=== PATIENT | female | born 1975 | race Caucasian/White ===

== ENCOUNTER 2023-03-03 01:04 | Emergency (ER) | payer BC, SELFPAY ==
--- NOTE | ~2023-03-03 | XR_ITS ---
EXAMINATION: XR CHEST CLINICAL INFORMATION: Cough. Pneumonia. COMPARISON: None available. TECHNIQUE: 2 views of the chest were obtained. FINDINGS: Diffuse bronchial wall thickening. Faint streaky opacities in the lower lobes bilaterally could represent infiltrate or atelectasis. No pleural effusion or pneumothorax. Normal heart size and pulmonary vascularity. XR/XR chest 2V IMPRESSION: * Diffuse bronchial wall thickening compatible with bronchitis. * Faint streaky opacities in the lower lobes bilaterally could represent infiltrate or atelectasis.
[2023-03-03 01:07] VITALS: BP 122/90; PULSE 107; RESP 24; TEMP 36.4; O2SAT 96; BMI 58.5
[2023-03-03 02:02] LABS: Influenza A PCR NEGATIVE (Negative); Influenza B PCR NEGATIVE (Negative); Resp Syncy Virus RNA Qual PCR NEGATIVE (Negative); SARS COV2 PCR INHOUSE NEGATIVE (Negative)
[2023-03-03 02:04] VITALS: BP 108/53; PULSE 98; RESP 16; TEMP 36.6; O2SAT 96
--- NOTE | 2023-03-03 02:04 | ED_ITS ---
HPI - URI/Sore Throat General Chief Complaint: Upper Respiratory Symptoms Stated Complaint: pneumonia ? asthma treatment not working Time Seen by Provider: 03/03/23 02:04 Source: patient Mode of arrival: ambulatory Limitations: no limitations History of Present Illness HPI Narrative: Patient obese with history of asthma/COPD been sick for last 1 week flu COVID was negative last week take and short course of prednisone and using nebulizing treatments still coughing a lot with mucopurulent expectoration no fever no chills history of same frequently patient does snore not been tested for sleep apnea no fever or chills Related Data Previous Rx's Medication Instructions Recorded albuterol sulfate 2.5 mg/3 mL 2.5 mg (3 mL) inhalation Q4-6H PRN 03/03/23 (0.083 %) solution for nebulization shortness of breath or wheezing #90 mL cefuroxime axetil 500 mg tablet 500 mg PO BID 10 days #20 tabs 03/03/23 codeine 10 mg-guaifenesin 100 mg/5 10 ml PO Q6H PRN cough #237 mL 03/03/23 mL oral liquid Allergies Allergy/AdvReac Type Severity Reaction Status Date / Time No Known Allergies Allergy Verified 03/03/23 02:04 Review of Systems Review of Systems: Yes all other systems are reviewed and are [facility] Social History Social History Advance Directives: No Advance Directives Information Provided: Yes Physical Exam Vital Signs: Vital Signs: Last Vital Signs Temp 97.9 F 03/03/23 02:04 Pulse 98 03/03/23 02:58 Resp 18 03/03/23 02:58 BP 108/53 L 03/03/23 02:04 Pulse Ox 96 03/03/23 02:11 O2 Del Method Room Air 03/03/23 02:11 BMI result Body Mass Index 58.5 Appearance: Alert. Oriented X3. No acute distress. obese ENT: Pharynx normal. Oral Mucosa moist Neck: Normal inspection. Neck supple. CVS: Normal heart rate and rhythm. Pulses normal. Respiratory: No respiratory distress. Equal air entry bilateral, bilateral prolonged expiration with wheezing no cracks Abdomen: Soft and nontender. Bowel sounds are present, no mass palpable, no CVA tenderness Skin: Skin warm and dry. Normal skin color. Normal skin turgor. Extremities: No lower extremity edema. No calf tenderness Neuro: Oriented X 3. No motor deficit. Medications Administered Discontinued Medications Generic Name Dose Route Start Last Admin Trade Name Caleb PRN Reason Stop Dose Admin Cefuroxime Axetil 500 mg 03/03/23 02:40 03/03/23 02:53 Cefuroxime Axetil 500 Mg Tablet PO 03/03/23 02:41 500 mg ONCE ONE Administration Albuterol Sulfate 5 mg/ 0 mg 03/03/23 02:40 03/03/23 02:55 Albuterol/Ipratropium 3 ml INHALE 03/03/23 02:41 5 each ONCE ONE Administration Dexamethasone 10 mg 03/03/23 02:40 03/03/23 02:53 Dexamethasone 2 Mg Tablet PO 03/03/23 02:41 10 mg ONCE ONE Administration Guaifenesin/Codeine Phosphate 10 ml 03/03/23 02:40 03/03/23 02:53 Guaifen/Codeine Sf 200/20/10ml 10 Ml Liquid PO 03/03/23 02:41 10 ml ONCE ONE Administration Medical Decision Making Medical Decision Making [facility] Narrative: Patient up with with COPD/asthma overlap comes in with bronchitis symptoms chest x-ray negative for pneumonia responded to steroids and antibiotics and nebulizing treatment discharge patient home on same advised to follow with can pusher for sleep apnea study Lab Data [facility] Lab Attestation statement: I reviewed the patient's lab results. Labs: Lab Results 03/03/23 Range/Units 01:19 Influenza Type A (PCR) NEGATIVE (Negative) Influenza Type B (PCR) NEGATIVE (Negative) RSV RNA Qual (PCR) NEGATIVE (Negative) SARS-CoV-2 RNA (RT-PCR) NEGATIVE (Negative) Independent Interpretation I performed an independent interpretation of an: Plain X-Ray Radiology Impression Discussion of test interpretation with radiology: I have reviewed the radiologist's reading. Radiologist Impression: [address] [address] XRay Report Signed Patient: Felicita Perez MR#: [id number] : 1975 Acct:[id number] Age/Sex: 48 / F ADM Date: 03/03/23 Loc: .ED Attending Dr: Ordering Physician: Trevor Arora MD Date of Service: 03/03/23 Procedure(s): XR chest 2V Accession Number(s): [id number] cc: Physician,Unknown ; Trevor Arora MD~ EXAMINATION: XR CHEST CLINICAL INFORMATION: Cough. Pneumonia. COMPARISON: None available. TECHNIQUE: 2 views of the chest were obtained. FINDINGS: Diffuse bronchial wall thickening. Faint streaky opacities in the lower lobes bilaterally could represent infiltrate or atelectasis. No pleural effusion or pneumothorax. Normal heart size and pulmonary vascularity. XR/XR chest 2V IMPRESSION: * Diffuse bronchial wall thickening compatible with bronchitis. * Faint streaky opacities in the lower lobes bilaterally could represent infiltrate or atelectasis. Discharge Plan Discharge Clinical Impression: Bronchitis Patient Disposition: Home, Self-Care Instructions: Acute Bronchitis (ED) Additional Instructions: Continue nebulizing treatment Course of prednisone as advised Antibiotic as advised Cough syrup as advised Prescriptions: New albuterol sulfate 2.5 mg /3 mL (0.083 %) solution for nebulization 2.5 mg inhalation Q4-6H PRN (Reason: shortness of breath or wheezing) Qty: 90 0RF codeine-guaifenesin 10-100 mg/5 mL liquid 10 ml PO Q6H PRN (Reason: cough) Qty: 237 0RF cefuroxime axetil 500 mg tablet 500 mg PO BID 10 Days Qty: 20 0RF Referrals: Taz Zhang MD [Physician] - 2 weeks Stand Alone Forms: Work/School Release Interventions: ED Discharge Assessment Last Done: 03/03/23 04:18 Discharge Date/Time: 03/03/23 04:19
[2023-03-03 02:11] VITALS: O2SAT 96
[2023-03-03] MEDS: dexAMETHasone 2 MG TABLET 10 MG PO (02:53)
[2023-03-03] MEDS: guaiFEN/Codeine SF 200/20/10ML 10 ML LIQUID PO (02:53)
[2023-03-03] MEDS: cefuroxime axetiL 500 MG TABLET PO (02:53)
[2023-03-03] MEDS: Albuterol Sulfate 5 MG, Albuterol/Iprat 2.5/0.5MG 3 ML 3 ML INHALE (02:55)
[2023-03-03 02:58] VITALS: PULSE 98; RESP 18; O2SAT 97
== END 2023-03-03 04:19 | disposition home or self-care (01) ==
PROVIDERS: Emergency Provider Internal Medicine
DX: J40 Bronchitis, not specified as acute or chronic (principal); R50.9 Fever, unspecified; Z20.822 Contact with and (suspected) exposure to COVID-19; Z20.828 Contact with and (suspected) exposure to other viral communicable diseases
CPT/HCPCS: 0241U; 71046; 94640; 99284; 99285; J8540

== ENCOUNTER 2024-03-29 15:09 | Outpatient (AMB) | payer OTHER, SELFPAY ==
[2024-03-29 15:14] VITALS: BP 132/80; PULSE 104; O2SAT 96; BMI 59.3
--- NOTE | 2024-03-29 15:14 | A.OFFPC_ITS ---
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 Sawyer Required: No Accompanied by: Self / Same As Patient Allergies No Known Allergies Allergy (Verified 03/29/24 15:28) Medication List - Last Reconciled 03/29/24 by Kian Hannon PA-C albuterol sulfate 2.5 mg (3 mL) inhalation Q4-6H PRN albuterol sulfate 90 mcg/actuation (Ventolin HFA) inhalation budesonide 180 mcg/actuation (Pulmicort Flexhaler) inhalation celecoxib 200 mg PO DAILY PRN hydrochlorothiazide 50 mg PO DAILY levothyroxine mcg PO DAILY losartan mg PO DAILY Tobacco use date assessed: 03/29/24 Dental Screening Dental Screen Date: 03/29/24 Did you have a dental visit in the last 12 months?: No Did you have a dental problem in the last 6 months where you did not have access to dental care?: No Was dental information given to patient?: No 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 Patient has a past medical history significant for asthma, former smoker, type 2 diabetes, obesity, hyperlipidemia, hypothyroidism and hypertension. Previous PCP was at [facility] .. Hypertension: Patient on losartan and hydrochlorothiazide with decent affect on her blood pressure . Today's blood pressure in office acceptable. .. Asthma: Patient reports her asthma is fairly well controlled with p.r.n. use of her albuterol inhaler or nebulizer. She does use Pulmicort a daily basis with good effect. .. Obesity: She does understand her BMI is over 55 and will try to work on better eating habits. She was on Ozempic previously which had helped him lose weight and control her blood sugars. .. Type 2 diabetes: She reports a history of having an A1c of 7.0. She was previously on Ozempic though due to insurance coverage she has been off of this medication for several months. 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 PFSH Family History (Updated 03/29/24 @ 15:33 by Kian Hannon PA-C) Maternal Grandmother Ovarian cancer Other ADHD FH: mental illness Substance abuse Social History (Updated 03/29/24 @ 15:35 by Kian Hannon PA-C) Housing: House Alcohol intake: current Alcohol intake frequency: 3 or more drinks per day Alcohol type: hard liquor Patient Tobacco Use Status: Former Tobacco user e-Cigarette/Vaping Use: Never Used Second Hand Smoke Exposure: No service: No Current occupational status: employed Current occupation: [employer] [place] Current occupational exposures/hazards: Yes Cognitive needs: No Hearing needs: No Vision needs: No Questionnaire PHQ-9 Over the last 2 weeks, how often have you been bothered by any of the following problems? 1. Little interest or pleasure in doing things: not at all 2. Feeling down, depressed, or hopeless: not at all 3. Trouble falling or staying asleep, or sleeping too much: not at all 4. Feeling tired or having little energy: not at all 5. Poor appetite or overeating: not at all 6. Feeling bad about yourself - or that you are a failure or have let yourself or your family down: not at all 7. Trouble concentrating on things, such as reading the newspaper or watching television: not at all 8. Moving or speaking so slowly that other people could have noticed. Or the opposite - being so fidgety or restless that you have been moving around a lot more than usual: not at all 9. Thoughts that you would be better off or of hurting yourself in some wa y: not at all Total score: 0 Depression Screening Interpretation: Negative Depression Screening Done: Yes 90080 - PHQ-9 Billing: Yes Source: Developed by Drs. Sourav Rosa, Janelle Anderson, Dangelo Adan and colleagues, with an educational marissa from [employer]. Thrive Questionnaire Date Thrive assessed: 03/29/24 I am a: Patient What is your living situation today?: I have a steady place to live Within the past 12 months, did the food you bought not last and you didn't have the money to get more?: I choose not to answer this question Within the past 12 months, did you worry whether your food would run out before you got money to buy more?: I choose not to answer this question Do you have trouble paying for medicines?: I choose not to answer this question Do you have trouble getting transportation to medical appointments?: I choose not to answer this question Do you have trouble paying your heating and electricity bill?: I choose not to answer this question Do you have trouble taking care of your child, family member or friend?: I choose not to answer this question Do you have trouble with day-to-day activities such as bathing, preparing meals, shopping, managing finances, etc.?: I choose not to answer this question Are you currently unemployed and looking for a job?: I choose not to answer this question Are you interested in more education?: I choose not to answer this question Please select the resources that you would like help with: None Currently or been in a relationship where the following occur: I choose not to answer THRIVE Score: 0 AUDIT C Alcohol Use Questionnaire (AUDIT-C) 1. How often do you have a drink containing alcohol?: 4 or more times a week 2. How many drinks containing alcohol do you have on a typical day when you are drinking?: 1 or 2 3. How often do you have six or more drinks on one occasion?: Less than monthly Total Score: 5 SABA-7 AMB Questionnaire SABA-7 Date SABA - 7 assessed: 03/29/24 Feeling nervous, anxious, or on edge: 0 = Not at all Not being able to stop or control worryin = Not at all Worrying too much about different things: 0 = Not at all Trouble relaxin = Not at all Being so restless that it is hard to sit still: 0 = Not at all Becoming easily annoyed or irritable: 0 = Not at all Feeling afraid as if something awful might happen: 0 = Not at all Total SABA-7 score (0-4 normal; 5-9 mild; 10-14 moderate; 15-21 severe): 0 Source: Developed by Drs. Sourav Rosa, Janelle Anderson, Dangelo Adan and colleagues, with an educational marissa from [employer]. SABA-7 Assessment Billing SABA-7 Assessment Tool: SABA-7 Assessment 28617 Review of Systems Const Denies body aches, Denies chills, Denies excessive sweating, Denies fatigue, Denies fever(s) and Denies headache(s) Eyes Denies blurry vision ENT Denies dysphagia, Denies vertigo, Denies dizziness, Denies headache(s), Denies hearing loss and Denies tinnitus Card Denies chest pain, Denies chest pain with activity, Denies syncope, Denies irregular heart rhythm and Denies dyspnea Resp Denies chest congestion, Denies cough, Denies hemoptysis, Denies dyspnea and Denies wheezing GI Denies abdominal pain, Denies melena, Denies hematochezia, Denies coffee ground emesis, Denies dysphagia, Denies diarrhea, Denies nausea and Denies vomiting Denies urinary frequency, Denies dysuria, Denies urinary hesitancy and Denies urinary urgency Musc Denies arthralgias, Denies limited range of motion, Denies muscle cramps and Denies muscle weakness Skin/Breast Denies rash and Denies skin ulcer Neuro Denies Abnormal speech present, Denies confusion, Denies vertigo, Denies dizziness, Denies syncope, Denies headache(s), Denies memory loss and Denies seizure-like activity Psych Denies anxiety, Denies confusion, Denies depression, Denies memory loss, Denies panic attacks and Denies paranoia Endo Denies excessive sweating, Denies fatigue, Denies flushing, Denies polydipsia and Denies polyuria Aller/Immun Denies wheezing Physical exam (Primary Care) Vital Signs: Last Vital Signs Pulse 104 H 03/29/24 15:14 BP 132/80 03/29/24 15:14 Pulse Ox 96 03/29/24 15:14 Oxygen Delivery Method Room Air 03/29/24 15:14 BMI result Body Mass Index 59.3 BMI Assessment/Plan discussion: High BMI High, discussed plan: lifestyle, weight reduction, dietary and physical activity Tobacco/Smoking Status: Tobacco use Status Tobacco use date assessed 03/29/24 03/29/24 15:24 Patient Tobacco Use Status Former Tobacco user 03/29/24 15:24 e-Cigarette/Vaping Use Never Used 03/29/24 15:24 PHQ-9: PHQ-9 Score PHQ-9: Total score 0 03/29/24 15:24 Depression Screening Interpretation: Negative Thrive Assessment: Date of Thrive Assessment Date Thrive assessed 03/29/24 03/29/24 15:24 Currently or been in a relationship where the following occur: I choose not to answer Const General: cooperative, comfortable, no acute distress, alert and awake; No confusion Orientation/consciousness: oriented to person, oriented to place, patient oriented x3 and No confusion HENMT Head: Yes normocephalic Ears: external ears normal and TM's normal bilaterally Face and sinus: No sinus tenderness Mouth: Normal oral and palatal mucosa present and tongue normal Teeth and gingiva: dentition normal and gingiva normal Throat: Yes posterior oropharynx normal, Yes tonsils normal and Yes uvula midline Eyes Conjunctivae: conjunctivae normal Sclerae: sclerae normal Pupils: Equal, round and reactive pupils present EOM: EOMs intact bilaterally Direct Ophthalmoscopy: No no photophobia Neck Neck: Yes no lymphadenopathy, No tender and Yes no JVD Thyroid: Thyroid normal Carotids: no bruits Chest Chest palpation & inspection: no tenderness Resp Effort & Inspection: normal respiratory effort, no audible wheezes, not labored and no stridor Auscultation: no crackles, no rales, no rhonchi and no wheezes Cardio Jugular venous distension: no JVD Rate: regular rate, not bradycardic and not tachycardic Rhythm: regular rhythm Bruits: no carotid bruits Peripheral pulses: Peripheral pulses 2+ throughout GI Inspection: Yes normal to inspection, No abdominal wall ecchymosis and No visible herniation Palpation (GI): Soft to palpation, nontender, no guarding, not rigid and No hepatosplenomegaly present Auscultation: normoactive bowel sounds General: Yes no CVA tenderness Back/Spine/Pelvis Back: no CVA tenderness and No back tenderness Cervical Spine: cervical ROM normal Thoracic/Lumbar Spine: thoracic and lumbar spine normal to inspection, straight leg raise negative bilaterally, No thoraco-lumbar ROM limited and No lumbar spinal tenderness Skin Lesions: no lesions Rashes: no rashes Wounds: no wounds Neuro General: oriented to person, oriented to place, patient oriented x3, CN's II-XI intact bilaterally and No confusion Cranial nerves: Yes Equal, round and reactive pupils present and Yes Normal accommodation reflex present Cognition (Neuro): normal cognition Speech: No Abnormal speech present Gait exam (Neuro): Normal gait present Motor exam (neuro): 5/5 motor strength present throughout Extrem Right upper extremity: full ROM; no cyanosis Left upper extremity: full ROM; no cyanosis Right lower extremity: no edema Left lower extremity: no edema Psych Appearance: grossly normal Mental Status: mental status grossly normal Affect: normal affect Attitude: cooperative Thought process: Normal thought process present Coding Level of Care Code New Pt Prev Care 40-64y(26606) Diagnoses Annual physical exam Z00.00 Primary hypertension I10 Hypertension type: primary hypertension Type 2 diabetes mellitus with hyperglycemia, without long-term current use of insulin E11.65 Diabetes mellitus longterm insulin use: without continuous churn buttermaker use Diabetes mellitus complication status: with hyperglycemia Hypothyroidism, unspecified type E03.9 Hypothyroidism type: unspecified Class 3 obesity E66.813 Encounter for screening mammogram for malignant neoplasm of breast Z12.31 Breast cancer screening modality: mammogram Cervical cancer screening Z12.4 Mild persistent asthma without complication J45.30 Asthma severity: mild Asthma persistence: persistent Asthma complication type: uncomplicated Primary osteoarthritis of both ankles M19.071; M19.072 Osteoarthritis location: ankle Osteoarthritis type: primary Laterality: bilateral Alcohol use disorder, mild, abuse F10.10 Additional Codes PHQ-9 - 73420 - PHQ-9 Billing: Yes ([id number]) SABA-7 Assessment Billing - SABA-7 Assessment Tool: SABA-7 Assessment 21622 ([id number]) Assessment & Plan Assessment & Plan (1) Annual physical exam: Code(s): Z00.00 - Encounter for general adult medical examination without abnormal findings Category: Medical Plan: As per HPI (2) HTN (hypertension): Code(s): I10 - Essential (primary) hypertension Category: Medical Qualifiers: Hypertension type: primary hypertension Qualified Code(s): I10 - Essential (primary) hypertension Plan: Patient's blood pressure acceptable today in office. She continues on losartan hydrochlorothiazide with decent blood pressure control. She is a former smoker quit in 2020. Goal blood pressures to remain below 140/90 (3) DMII (diabetes mellitus, type 2): Code(s): E11.9 - Type 2 diabetes mellitus without complications Category: Medical Qualifiers: Diabetes mellitus continuous churn buttermaker insulin use: without continuous churn buttermaker use Diabetes mellitus complication status: with hyperglycemia Qualified Code(s): E11.65 - Type 2 diabetes mellitus with hyperglycemia Plan: Patient reports she did have an A1c in the past though 7.0. She was on Ozempic previously and did lose weight. She is interested in restarting Ozempic as it was helpful for her glycemic control and losing weight. Goal A1c is to remain below 7.0 (4) Hypothyroid: Code(s): E03.9 - Hypothyroidism, unspecified Category: Medical Qualifiers: Hypothyroidism type: unspecified Qualified Code(s): E03.9 - Hypothyroidism, unspecified Plan: Patient continues on levothyroxine with good effect. Will follow her TSH to assure normal make any adjustments in levothyroxine dosing that are appropriate (5) Class 3 obesity: Code(s): E66.813 - Obesity, class 3 Category: Medical Plan: Patient does understand her BMI is over 50 and will work on being more physically active and adapt to better eating habits to reduce her weight. She is somewhat disabled by her arthritis particularly in her ankles which causes her not to be able to be physically active. (6) Breast cancer screening: Code(s): Z12.39 - Encounter for other screening for malignant neoplasm of breast Category: Medical Qualifiers: Breast cancer screening modality: mammogram Qualified Code(s): Z12.31 - Encounter for screening mammogram for malignant neoplasm of breast Plan: She is in need screening mammogram (7) Cervical cancer screening: Code(s): Z12.4 - Encounter for screening for malignant neoplasm of cervix Category: Medical Plan: She is in need of Pap screening (8) Asthma: Code(s): J45.909 - Unspecified asthma, uncomplicated Category: Medical Qualifiers: Asthma severity: mild Asthma persistence: persistent Asthma complication type: uncomplicated Qualified Code(s): J45.30 - Mild persistent asthma, uncomplicated Plan: She reports her asthma is fairly well controlled with p.r.n. use of her albuterol inhaler and daily use of her Pulmicort. She is a former smoker. (9) Osteoarthritis: Code(s): M19.90 - Unspecified osteoarthritis, unspecified site Category: Medical Qualifiers: Osteoarthritis location: ankle Osteoarthritis type: primary Laterality: bilateral Qualified Code(s): M19.071 - Primary osteoarthritis, right ankle and foot; M19.072 - Primary osteoarthritis, left ankle and foot Plan: Continues on Celebrex for her arthritic pain. She does for her severe osteoarthritis which limits her ability to be more physically active (10) Alcohol use disorder, mild, abuse: Code(s): F10.10 - Alcohol abuse, uncomplicated Category: Medical Plan: Patient does admit to drinking 3 or 4 mixed drinks per day. She admits she has somewhat of a problem with alcohol. Offered her naltrexone to help her with cravings though she declines. We did discuss his perhaps trying a 12 step program though she is considering. Orders: Orders TSH reflex Free T4 Today E03.9 - Hypothyroidism, unspecified Complete Blood Count no Diff Today E11.65 - Type 2 diabetes mellitus with hyperglycemia Hemoglobin A1c Today E11.65 - Type 2 diabetes mellitus with hyperglycemia Microalbumin, Random (w Creat) Today E11.65 - Type 2 diabetes mellitus with hyperglycemia Comprehensive Weiser. Panel Fast Today E11.65 - Type 2 diabetes mellitus with hyperglycemia Lipid Panel Today E11.65 - Type 2 diabetes mellitus with hyperglycemia MM screening mammo BI Today Z12.31 - Encounter for screening mammogram for m alignant neoplasm of breast Referrals [employer] UNDERWRITER Referral Z12.4 - Encounter for screening for malignant neoplasm of cervix Cologuard Test Z12.11 - Encounter for screening for malignant neoplasm of colon Medications: New celecoxib 200 mg PO DAILY 90 days 90 caps 1RF moderate pain M19.90 - Unspecified osteoarthritis, unspecified site budesonide 180 mcg/actuation (Pulmicort Flexhaler) 1 inh inhalation BID 30 days 1 ea 6RF J45.909 - Unspecified asthma, uncomplicated hydrochlorothiazide 50 mg PO DAILY 90 days 90 tabs 1RF I10 - Essential (primary) hypertension semaglutide (Ozempic) 0.5 mg (0.736 mL) subcut QWEEK 4 weeks 3 mL 2RF E11.65 - Type 2 diabetes mellitus with hyperglycemia
== END 2024-03-29 15:51 | disposition home or self-care (01) ==
PROVIDERS: PCP Physician Assistant; Visit Provider Physician Assistant
DX: Z00.00 Encounter for general adult medical examination without abnormal findings (principal); E11.65 Type 2 diabetes mellitus with hyperglycemia; E66.813 Obesity, class 3; Z68.43 Body mass index [BMI] 50.0-59.9, adult; I10 Essential (primary) hypertension; E03.9 Hypothyroidism, unspecified; Z12.31 Encounter for screening mammogram for malignant neoplasm of breast; J45.30 Mild persistent asthma, uncomplicated; M19.071 Primary osteoarthritis, right ankle and foot; M19.072 Primary osteoarthritis, left ankle and foot; F10.10 Alcohol abuse, uncomplicated

== ENCOUNTER → 2024-03-29 15:09 | Outpatient (BNVA) | payer OTHER, SELFPAY | PROVIDERS: PCP Physician Assistant; Visit Provider Physician Assistant | DX: Z00.00 Encounter for general adult medical examination without abnormal findings (principal); I10 Essential (primary) hypertension; E11.65 Type 2 diabetes mellitus with hyperglycemia; E03.9 Hypothyroidism, unspecified; E66.813 Obesity, class 3; J45.30 Mild persistent asthma, uncomplicated; M19.071 Primary osteoarthritis, right ankle and foot; M19.072 Primary osteoarthritis, left ankle and foot; F10.10 Alcohol abuse, uncomplicated | CPT/HCPCS: 96127; 99386 ==

== ENCOUNTER 2024-05-24 13:36 | Outpatient (REF) | payer OTHER, SELFPAY | END 2024-05-24 13:37 | disposition home or self-care (01) | LOC: HO.MAMMO 13:36 | PROVIDERS: PCP Physician Assistant; Visit Provider Physician Assistant | DX: Z12.31 Encounter for screening mammogram for malignant neoplasm of breast (principal) | CPT/HCPCS: 77063; 77067 ==

== ENCOUNTER → 2024-05-24 13:45 | Outpatient (BNV) | payer OTHER, SELFPAY | PROVIDERS: PCP Physician Assistant; Visit Provider Internal Medicine | DX: Z12.31 Encounter for screening mammogram for malignant neoplasm of breast (principal) | CPT/HCPCS: 77063; 77067 ==

== ENCOUNTER 2024-06-01 10:57 | Emergency (ER) | payer OTHER, SELFPAY ==
--- NOTE | ~2024-06-01 | XR_ITS ---
EXAMINATION: XR CHEST 1 VIEW HISTORY: Chest pain R/O CHF COMPARISON: Comparison is made with the prior examination dated 03/03/2023. FINDINGS: Two AP portable views of the chest performed at 11:42 AM are submitted. The lungs are expanded and clear. There is no pleural effusion, pneumothorax, or pulmonary vascular congestion. The heart is normal in size given technique. The bones are intact. XR/XR chest 1V IMPRESSION: No acute cardiopulmonary abnormality. Electronically signed by: Sourav Alvarez MD 06/01/2024 11:50 AM EDT RP
--- NOTE | 2024-06-01 11:13 | ECG_ITS ---
Test Reason : AFIB Blood Pressure : */* mmHG Vent. Rate : 112 BPM Atrial Rate : 112 BPM P-R Int : 150 ms QRS Dur : 90 ms QT Int : 340 ms P-R-T Axes : 55 78 24 degrees QTcB Int : 464 ms Sinus tachycardia Low voltage QRS RSR' or QR pattern in V1 suggests right ventricular conduction delay Cannot rule out Anterior infarct (cited on or before 01-Jun-2024) Abnormal ECG When compared with ECG of 01-Jun-2024 11:14, Sinus rhythm has replaced Atrial flutter Referred By: Reagan Vila Electronically Signed By: ERICA TORRES MD
--- NOTE | 2024-06-01 11:27 | ECG_ITS ---
Test Reason : AFIB Blood Pressure : */* mmHG Vent. Rate : 161 BPM Atrial Rate : 326 BPM P-R Int : * ms QRS Dur : 80 ms QT Int : 284 ms P-R-T Axes : * 87 -33 degrees QTcB Int : 464 ms Atrial flutter with variable A-V block Anterior infarct , age undetermined Abnormal ECG No previous ECGs available Referred By: Reagan Vila Electronically Signed By: ERICA TORRES MD
--- NOTE | 2024-06-01 11:28 | ED_ITS ---
HPI - Arrhythmia/Palpitations General Chief Complaint: Arrhythmia/Palpitations Stated Complaint: chest fluttering, a-fib on monitor Time Seen by Provider: 06/01/24 11:08 Source: patient Mode of arrival: EMS Limitations: no limitations History of Present Illness ED Provider: Dr. Reagan Vila HPI narrative: 49-year-old female with a history of alcohol use disorder, asthma, hypothyroidism, diabetes, hypertension, obesity started metformin 1 week prior for ?weight loss ? who presents emergency department for evaluation of palpitations. The patient states that this morning around 08:10 she developed a fluttering sensation in her chest. She states that over the last 2 days she has had loose diarrheal stool anywhere from 3-6 episodes per day which she attributes to starting the metformin. Patient was not been on antibiotics recently in his not traveled outside of the country. 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 An EKG was done and she was found to have atrial fibrillation and was sent to the emergency department by ambulance for evaluation. In the emergency department she states that she has a fluttering sensation but denies any other symptoms. She denies chest pain, lightheadedness, dizziness, neck, jaw or arm pain, nausea or vomiting. She states that she has been in her usual state of health and denied fever, chills, cough, shortness of breath or dyspnea on exertion over the past several days. She states she does have chronic pitting edema in her lower extremities and she was not noticed any change in the pitting edema. The patient is a former cigarette smoker and quit 5 years ago and has a 30 pack-year history of smoking. She also drinks 2 whiskey drinks daily. She does smoke marijuana but she denies other drug use. Related Data Home Medications ?Medication ?Instructions ?Recorded ?Confirmed albuterol sulfate 90 mcg/actuation inhalation 03/29/24 03/29/24 aerosol inhaler (Ventolin HFA) levothyroxine 75 mcg tablet mcg PO DAILY 03/29/24 03/29/24 losartan 50 mg tablet mg PO DAILY 03/29/24 03/29/24 Previous Rx's ?Medication ?Instructions ?Recorded albuterol sulfate 2.5 mg/3 mL 2.5 mg (3 mL) inhalation Q4-6H PRN 03/03/23 (0.083 %) solution for nebulization shortness of breath or wheezing #90 mL budesonide 180 mcg/actuation 1 inh inhalation BID 30 days #1 ea 03/29/24 breath activated powder inhaler (Pulmicort Flexhaler) celecoxib 200 mg capsule 200 mg PO DAILY moderate pain 90 03/29/24 days #90 caps hydrochlorothiazide 50 mg tablet 50 mg PO DAILY 90 days #90 tabs 03/29/24 semaglutide 0.25 mg or 0.5 mg (2 0.5 mg (0.736 mL) subcut QWEEK 4 03/29/24 mg/3 mL) subcutaneous pen injector weeks #3 mL (Ozempic) metformin 500 mg tablet 500 mg PO BID 90 days #180 tabs 05/26/24 apixaban 5 mg tablet (Eliquis) 5 mg PO BID 90 days #180 tabs 06/01/24 metoprolol succinate 50 mg 50 mg PO DAILY 90 days #90 tabs 06/01/24 tablet,extended release 24 hr Allergies Allergy/AdvReac Type Severity Reaction Status Date / Time No Known Allergies Allergy Verified 06/01/24 11:37 Review of Systems 2 Review of Systems: Yes all other systems are reviewed and are negative [facility] Past Medical History [facility] Narrative: Social history: 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 She was in her is here in the emergency department. Patient he was a former smoker, quit 5 years prior, has a 30 pack-year history of smoking. She drinks 2 whiskey drinks daily. She smokes marijuana but denies other drug use. Family History Family History (Updated 03/29/24 @ 15:33 by Kian Hannon PA-C) Maternal Grandmother Ovarian cancer Other ADHD FH: mental illness Substance abuse Social History Social History (Updated 03/29/24 @ 15:35 by Kian Hannon PA-C) Housing: House Alcohol intake: current Alcohol intake frequency: 3 or more drinks per day Alcohol type: hard liquor Patient Tobacco Use Status: Former Tobacco user e-Cigarette/Vaping Use: Never Used Second Hand Smoke Exposure: No Advance Directives: No Advance Directives Information Provided: No service: No Current occupational status: employed Current occupation: [employer] [place] Current occupational exposures/hazards: Yes Cognitive needs: No Hearing needs: No Vision needs: No Physical Exam 2 Vital Signs: Vital Signs: Last Vital Signs Temp 98.0 F 06/01/24 14:00 Pulse 110 H 06/01/24 14:00 Resp 17 06/01/24 14:00 BP 121/77 06/01/24 14:00 Pulse Ox 96 06/01/24 14:00 O2 Del Method Room Air 06/01/24 14:00 BMI result Body Mass Index 44.9 Exam: General: Awake, alert in no distress, Head: Normocephalic, atraumatic EENT: PERRL, Lids normal, sclera normal, conjunctiva normal, nose normal , ears normal, throat without erythema or exudates Neck: Supple, no adenopathy Lung: breath sounds symmetric, no wheezing, rales or rhonchi Chest: symmetric movement, nontender Heart: Rapid rate with an irregularly irregular rhythm,, normal S1, S2 no murmurs or rubs Abdomen: soft, non-tender, nondistended, normal bowel sounds Back: no vertebral tenderness, no CVAT Extremities: no deformities, moves all extremities symmetrically Neuro: Awake, alert, oriented, normal speech, cranial nerves intact, moves all extremities symmetrically Psych: Pleasant, cooperative Medications Administered Discontinued Medications Generic Name Dose Route Start Last Admin Trade Name Freq PRN Reason Stop Dose Admin Sodium Chloride 1,000 mls @ 999 mls/hr 06/01/24 11:13 06/01/24 11:32 Ns IV 06/01/24 12:13 999 mls/hr .Q1H1M STA Administration Medical Decision Making Medical Decision Making [facility] Narrative: 49-year-old female with a history of alcohol use disorder, asthma, hypothyroidism, diabetes, hypertension, obesity started metformin 1 week prior for ?weight loss ? who presents emergency department for evaluation of palpitations. 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 Here in the emergency department patient was 12 EKG revealed atrial flutter with a variable block. Except for the palpitations she was otherwise asymptomatic. Physical examination did reveal a rapid, irregularly irregular heart rate otherwise was unremarkable. Differential diagnosis: ?Includes but is not limited to atrial fibrillation, atrial flutter, SVT, myocardial infarction, myocardial ischemia, hyperthyroidism, anemia, electrolyte abnormalities Course: 11:36 Prior to any treatment, the patient was spontaneously converted to a sinus tachycardia with a rate of [address] segment elevation or depression, patient does have a RS are pattern in lead V1 with poor R-wave progression V1 through V2, with no old EKG for comparison. I did order laboratory evaluation on the patient. The patient will be kept on a fire watchman as well. Lab Data MDM Lab Attestation statement: I reviewed the patient's lab results. 06/01/24 11:27 06/01/24 14:14 Labs: Lab Results 06/01/24 06/01/24 Range/Units 11:27 14:14 WBC 11.9 H (4.8-10.8) X10*3/uL RBC 4.57 (4.20-5.50) X10*6/uL Hgb 14.9 (12.0-16.0) g/dl Hct 41.8 (37.0-47.0) % MCV 91.5 (80.0-98.0) fL MCH 32.6 (27.0-33.0) pg MCHC 35.6 H (31.0-35.0) g/dl RDW 12.6 (11.0-16.0) % Plt Count 311 (160-400) X10*3/uL MPV 9.2 L (9.4-12.3) fL Immature Gran % (Auto) 0.3 (0.0-0.4) % Neut % (Auto) 70.9 (45-73) % Lymph % (Auto) 22.7 (20-40) % [place] % (Auto) 4.5 (2-11) % Eos % (Auto) 1.0 (0-4) % Baso % (Auto) 0.6 (0-2) % Lymph # (Auto) 2.7 (1.2-4.9) X10*3/uL [place] # (Auto) 0.5 (0.1-1.2) X10*3/uL Eos # (Auto) 0.1 (0.0-0.4) X10*3/uL Baso # (Auto) 0.1 (0.0-0.2) X10*3/uL Abs Immat Gran (auto) 0.04 H (0.00-0.03) X10*3/uL Absolute Neuts (auto) 8.4 H (2.0-8.3) x10*3/uL Absolute Nucleated RBC 0.000 (0.0-0.012) X10*3/uL Nucleated RBC % (auto) 0.0 (0.0-0.2) /100WBC PT 10.9 (10.9-12.4) SEC INR 0.9 (0.9-1.1) APTT 33.0 (26.0-36.8) SEC Sodium 140 (135-145) mmol/L Potassium 3.4 (3.3-5.1) mmol/L Chloride 101 (96-108) mmol/L Carbon Dioxide 28 (22-29) mmol/L Anion Gap 14 (12-20) BUN 20 H (9-16) mg/dL Creatinine 0.64 (0.5-1.4) mg/dL Estim Creat Clear Calc 136.5 Estimated GFR > 60 Random Glucose 157 H (60-115) mg/dL Calcium 9.6 (8.4-10.2) mg/dL Magnesium 1.5 L (1.6-2.6) mg/dL Total Bilirubin 0.7 (0.0-1.0) mg/dL AST 28 (5-31) U/L ALT 21 (0-31) U/L Alkaline Phosphatase 86 (39-117) U/L Troponin I High Sens 2.8 5.6 D (<3.5-17.0) ng/L B-Natriuretic Peptide 41 (<100) pg/mL Total Protein 7.0 (6.5-8.0) g/dL Albumin 3.8 (3.5-5.0) g/dL Lipase 30 (8-78) U/L TSH 2.02 (0.32-4.0) uIU/mL Independent Interpretation I performed an independent interpretation of an: Plain X-Ray Interpretation: My independent interpretation patient's chest x-ray is as follows: No acute disease My interpretation of the patient's EKGs in his as follows: EKG 06/01/2024 at 11:14 hours: Atrial flutter with a variable AV block with a ventricular rate of 161, no ST segment elevation, no ST segment depression, Q- wave in V1 with poor R-wave progression V1 through V3, no significant T-wave abnormalities. No old EKG for comparison .EKG 2. 06/01/2024 at 11:34 hours: Sinus tachycardia with a rate of 112, normal TX interval, QRS duration QTC interval, no ST segment elevation, no ST segment depression, RSR' complex V1, Q-waves V2 and V3, no significant T-wave abnormalities. Patient was spontaneously converted compared to EKG 1, otherwise no other significant changes. Radiology Impression Discussion of test interpretation with radiology: I have reviewed the radiologist's reading. Radiologist Impression: XR chest 1V IMPRESSION: No acute cardiopulmonary abnormality. Electronically signed by: Sourav Alvarez MD 06/01/2024 11:50 AM EDT Transthoracic Echocardiogram Conclusions: - 1. Technically very limited study despite use of contrast agent 2. Normal LV ejection fraction of 60-65% Keith Ryan MD electronically signed on 06/01/2024 2:50:46 PM with status of Final Discharge Plan Discharge Clinical Impression: Atrial fibrillation, new onset Patient Disposition: Home, Self-Care Instructions: A-fib (Atrial Fibrillation) (ED) Additional Instructions: Your initial EKG revealed atrial fibrillation/atrial flutter with a variable block and a ventricular rate of 161 beats per minute. We did not give you any medications and you spontaneously converted into a sinus tachycardia with a rate of 112. Your complete blood count (CBC) and comprehensive metabolic panel (CMP) were normal. Your TSH, a marker of high or low thyroid function was normal which is reassuring. Continue taking your thyroid medication as prescribed by your providers. Your high sensitive troponin I when you 1st got here was 2.8 in your 3 hour repeat was 5.6. This is very reassuring. In women less than 17 in his normal unusually with a heart attack the troponin can be in the 100s to 1000 range. Your chest x-ray was normal. Your echocardiogram was limited however you have a normal ejection fraction of 60-65% which is reassuring. I did discuss your presentation with our covering tourist cabin keeper, Dr. Ryan. He recommended that you take metoprolol extended release 50 mg once a day. This is a beta cesar and slow your heart rate down which is important and hopefully will keep you out of rapid atrial fibrillation. He also recommended that we start you on a blood thinner, Eliquis 5 mg every 12 hours. This is to prevent you from having a stroke. It is important that you take this medication every day and you do not stop this medication unless you advised to do so by the tourist cabin keeper. While you are on Eliquis you need to avoid any medication that can cause increased bleeding such as aspirin, ibuprofen, Motrin, Advil, Aleve, naproxen and Celebrex. Alcohol can be a contributing factor and cause you to go into atrial fibrillation so you need to abstain from alcohol completely. Also drinking alcohol on Eliquis can be dangerous since alcohol can cause you to have bleeding ulcers and inflammation of your stomach (gastritis) Please call the tourist cabin keeper's office tomorrow to make a follow-up appointment within 1-[address] Ryan. Follow-up with your doctor in 2 days. Please return to the emergency department if your symptoms get worse or if you develop any symptoms that are concerning to you. Prescriptions: New Eliquis 5 mg tablet 5 mg PO BID 90 Days Qty: 180 0RF metoprolol succinate 50 mg tablet extended release 24 hr 50 mg PO DAILY 90 Days Qty: 90 0RF No Action metformin 500 mg tablet 500 mg PO BID 90 Days Qty: 180 1RF albuterol sulfate 2.5 mg /3 mL (0.083 %) solution for nebulization 2.5 mg inhalation Q4-6H PRN (Reason: shortness of breath or wheezing) Qty: 90 0RF losartan 50 mg tablet PO DAILY levothyroxine 75 mcg tablet PO DAILY albuterol sulfate [Ventolin HFA] 90 mcg/actuation HFA aerosol inhaler inhalation Ozempic 0.25 mg or 0.5 mg (2 mg/3 mL) pen injector 0.5 mg subcut QWEEK 28 Days Qty: 3 2RF celecoxib 200 mg capsule 200 mg PO DAILY 90 Days Qty: 90 1RF Pulmicort Flexhaler 180 mcg/actuation aerosol powdr breath activated 1 inh inhalation BID 30 Days Qty: 1 6RF hydrochlorothiazide 50 mg tablet 50 mg PO DAILY 90 Days Qty: 90 1RF Stand Alone Forms: Work/School Release Print Language: Wallisian
[2024-06-01 11:32] LABS: MANUAL DIFF FLAG NO
[2024-06-01] MEDS: 0.9 % Sodium Chloride 1,000 ML 999 ML IV (11:32)
[2024-06-01 11:34] VITALS: BP 138/85; BP 145/110; PULSE 165; PULSE 168; RESP 22; TEMP 36.7; O2SAT 96; O2SAT 98; BMI 44.9
[2024-06-01 11:34] LABS: Basophils Absolute Auto 0.1 X10*3/uL (0.0-0.2); Basophils Percent Auto 0.6 % (0-2); Eosinophils Absolute Auto 0.1 X10*3/uL (0.0-0.4); Hematocrit 41.8 % (37.0-47.0); Hemoglobin 14.9 g/dl (12.0-16.0); Imm Gran Abs Auto 0.04 X10*3/uL (0.00-0.03); Imm Gran Pct Auto 0.3 % (0.0-0.4); Lymphocytes Absolute Auto 2.7 X10*3/uL (1.2-4.9); Lymphocytes Percent Auto 22.7 % (20-40); Mean Corpuscular HGB Conc 35.6 g/dl (31.0-35.0); Mean Corpuscular Hemoglobin 32.6 pg (27.0-33.0); Mean Corpuscular Volume 91.5 fL (80.0-98.0); Mean Platelet Volume 9.2 fL (9.4-12.3); Monocytes Absolute Auto 0.5 X10*3/uL (0.1-1.2); Monocytes Percent Auto 4.5 % (2-11); Neutrophils Absolute Auto 8.4 x10*3/uL (2.0-8.3); Neutrophils Percent Auto 70.9 % (45-73); Platelet Count 311 X10*3/uL (160-400); Red Blood Count 4.57 X10*6/uL (4.20-5.50); Red Cell Distribution Width 12.6 % (11.0-16.0); White Blood Count 11.9 X10*3/uL (4.8-10.8)
--- NOTE | 2024-06-01 11:38 | PC.NURSE ---
Pt biba from work, approx 0800am pt felt a fluttering in her chest. Pt checked HR at work showing 80s and had ekg done showing afib 160s-170s. Pt a/ox3, no increased wob/sob noted, respirations even and unlabored, afib on monitor, HR- 160s, denies cp/sob/pain at this time. 22g IV placed Right hand, 20g IV placed left AC. MD Vila at bedside- verbal order for 10mg Diltiazem. During IV insertion pt converted to NSR- HR 110s. IV Diltiazem not given. IV Fluids infusing per MAY. Pt states no hx of cardiac problems, has felt this fluttering intermittently x 1-2 years but resolved on it's own. Family at bedside, call francois within reach, all needs met at this time.
[2024-06-01 11:39] LABS: INTERNATIONAL NORM RATIO 0.9 (0.9-1.1); Prothrombin Time 10.9 SEC (10.9-12.4)
--- NOTE | 2024-06-01 11:46 | CA_ITS ---
Transthoracic Echocardiogram Patient (Last, First, Middle): Felicita Perez, Gender: Female Date of : 1975 Age: 49 Procedure Date: 06/01/2024 Procedure Type: Transthoracic Echocardiogram Location: ER Height: 165. cm Weight: 122.47 kg BSA: 2.25 m2 Heart Rate: 106 bpm BP: 132 / 79 mmHg Seed Corn Manager Production: FRANCO Becerril MD: Reagan Vila MD Wage Analyst: Keith Ryan MD Symptoms: New onset atrial fibrillation evaluate Study Quality: Technically Difficult w/Contrast ECG Rhythm: Tachycardia Conclusions: - 1. Technically very limited study despite use of contrast agent 2. Normal LV ejection fraction of 60-65% Findings Procedure Information Contrast agent, definity, is being given per protocol without apparent complications. The quality of the study was technically difficult. The study quality is limited by patients body habitus. Left Ventricle The left ventricle was not well visualized. Normal left ventricular cavity size. The left ventricular systolic function is normal. The visually estimated ejection fraction is between 60-65%. Diastolic function is indeterminate on the basis of available data. Right Ventricle The right ventricle was not well visualized. Atria The left atrium was not well visualized. The right atrium was not well visualized. Aortic Valve The aortic valve was not well visualized. There is no aortic valve stenosis. Mitral Valve The mitral valve was not well visualized. Pulmonic Valve The pulmonic valve was not well visualized. Tricuspid Valve The tricuspid valve was not well visualized. Great Vessels The aorta was not well visualized. The pulmonary artery was not well visualized. Venous The inferior vena cava was not well visualized. Pericardium/Pleural The pericardium was not well visualized. Prior Study Comparison No prior study available for comparison. Measurements 2D Linear Measurements IVSd: 0.91 0.6-0.9/0.6-1.0 cm LVIDd: 3.74 3.9-5.3/4.2-5.9 cm LVIDd Index: 1.66 2.4-3.2/2.2-3.1 cm/m2 LVIDs: 2.60 2.0-3.6 cm LVPWd: 1.11 0.7-1.1 cm LV Mass: 143.93 67-162/88-224 g LV Mass Index: 63.97 43-95/49-115 g/m2 LVOT Diam: 2.00 3.0+(-)1.3 cm 2D Systolic Function EF 4C: 67.80 >55% EF 2C: 53.90 >55% EF BiP: 60.90 >55% Aortic Valve AoV Pk Zak: 2.05 AoV Mn Zak: 1.46 AoV VTI: 0.31 AoV Pk Grad: 17.00 Aov Mn Grad: 9.00 GUILLERMO Cont.VTI: 2.36 LVOT LVOT Pk Zak: 1.53 LVOT Mn Zak: 1.09 LVOT VTI: 0.23 LVOT Pk Grad: 9.00 LVOT Mn Grad: 5.00 LVOT Diam: 2.00 LVOT Area: 3.14 Right Ventricle TVS' Zak: 16.00 Tricuspid Valve RA Press: 3.00 Great Vessels Aorta Sinus of Valsalva: 2.90 2.0-3.5 cm Ao Asc: 3.20 2.1-3.4 cm Pulmonary Valve PV Pk Zak: 1.29 Peak PV Grad: 7.00 Updated in Other Vendor System with Status of Final Keith Ryan MD electronically signed on 06/01/2024 2:50:46 PM with status of Final
[2024-06-01 11:58] LABS: B Type Natriuretic Peptide 41 pg/mL (<100)
[2024-06-01 12:00] VITALS: BP 118/82; PULSE 110; RESP 18; TEMP 36.7; O2SAT 98
[2024-06-01 12:00] LABS: Troponin-I High Sensitivity 2.8 ng/L (<3.5-17.0)
[2024-06-01 14:00] VITALS: BP 121/77; PULSE 110; RESP 17; TEMP 36.7; O2SAT 96
[2024-06-01 14:48] LABS: Alanine Aminotransferase 21 U/L (0-31); Albumin Level 3.8 g/dL (3.5-5.0); Alkaline Phosphatase 86 U/L (39-117); Anion Gap 14 (12-20); Aspartate Amino Transferase 28 U/L (5-31); Bilirubin Total 0.7 mg/dL (0.0-1.0); Blood Urea Nitrogen 20 mg/dL (9-16); Calcium 9.6 mg/dL (8.4-10.2); Carbon Dioxide 28 mmol/L (22-29); Chloride 101 mmol/L (96-108); Creatinine Clr Calc Pharmacy 136.5; Estimated Glomerular Filt Rate > 60; Glucose Random 157 mg/dL (60-115); Lipase 30 U/L (8-78); Magnesium 1.5 mg/dL (1.6-2.6); Potassium 3.4 mmol/L (3.3-5.1); Sodium 140 mmol/L (135-145); Troponin-I High Sensitivity 5.6 ng/L (<3.5-17.0)
[2024-06-01 15:02] LABS: TSH reflex Free T4 2.02 uIU/mL (0.32-4.0)
[2024-06-01 16:00] VITALS: BP 127/76; PULSE 104; RESP 18; TEMP 36.6; O2SAT 98
[2024-06-01 16:28] VITALS: BP 127/76; PULSE 104
[2024-06-01] MEDS: Metoprolol Succinate ER 50 MG TAB.ER.24H PO (16:28)
[2024-06-01] MEDS: Apixaban 5 MG TABLET PO (16:29)
[2024-06-01 16:38] VITALS: BP 127/76; PULSE 104; RESP 16; TEMP 36.7; O2SAT 98
== END 2024-06-01 16:44 | disposition home or self-care (01) ==
PROVIDERS: Emergency Provider Emergency Medicine Emergency Medical Services; PCP Physician Assistant
DX: I48.91 Unspecified atrial fibrillation (principal); I44.30 Unspecified atrioventricular block; R00.0 Tachycardia, unspecified; R00.2 Palpitations; R60.0 Localized edema; F10.10 Alcohol abuse, uncomplicated; E11.9 Type 2 diabetes mellitus without complications; I10 Essential (primary) hypertension; E03.9 Hypothyroidism, unspecified; J45.909 Unspecified asthma, uncomplicated; E66.813 Obesity, class 3; Z68.41 Body mass index [BMI] 40.0-44.9, adult; Z87.891 Personal history of nicotine dependence; Z79.84 Long term (current) use of oral hypoglycemic drugs; Z79.899 Other long term (current) drug therapy
CPT/HCPCS: 36415; 71045; 80053; 83690; 83735; 83880; 84443; 84484; 85025; 85610; 85730; 93005; 93306; 96360; 96361; 99285; Q9957

== ENCOUNTER → 2024-06-01 11:13 | Outpatient (BNV) | payer OTHER, SELFPAY | PROVIDERS: Emergency Provider Emergency Medicine Emergency Medical Services; PCP Physician Assistant; Visit Provider Internal Medicine Cardiovascular Disease | DX: R00.0 Tachycardia, unspecified (principal); I48.92 Unspecified atrial flutter; I44.0 Atrioventricular block, first degree; I48.91 Unspecified atrial fibrillation | CPT/HCPCS: 93010; 93306 ==

== ENCOUNTER → 2024-06-01 11:14 | Outpatient (BNV) | payer OTHER, SELFPAY | PROVIDERS: Emergency Provider Emergency Medicine Emergency Medical Services; PCP Physician Assistant; Visit Provider Radiology Diagnostic Radiology | DX: R07.9 Chest pain, unspecified (principal) | CPT/HCPCS: 71045 ==

== ENCOUNTER 2024-06-06 13:28 | Outpatient (AMB) | payer OTHER, SELFPAY ==
[2024-06-06 13:41] VITALS: BP 118/74; PULSE 87; BMI 53.2
--- NOTE | 2024-06-06 13:41 | A.OFFVIS_ITS ---
Vital Signs 06/06/24 13:41 Height 5 ft 5 in Weight 319 lb 10.724 oz BMI 53.2 BP 118/74 Blood Pressure Location Lt brachial Position Sitting Pulse 87 Intake Visit Reasons: Afib follow up from Ed 06/01/24 Intake Note: New patient was in the ED dx afib [facility] Banquet Required: No Allergies No Known Allergies Allergy (Verified 06/01/24 11:37) Medication List - Last Reconciled 06/06/24 by Keith Ryan MD albuterol sulfate 2.5 mg (3 mL) inhalation Q4-6H PRN albuterol sulfate 90 mcg/actuation (Ventolin HFA) inhalation apixaban (Eliquis) 5 mg PO BID 90 days budesonide 180 mcg/actuation (Pulmicort Flexhaler) 1 inh inhalation BID 30 days celecoxib 200 mg PO DAILY 90 days hydrochlorothiazide 50 mg PO DAILY 90 days levalbuterol HCl mg inhalation levothyroxine mcg PO DAILY losartan 50 mg PO DAILY metformin 500 mg PO BID 90 days metoprolol succinate ER 50 mg PO DAILY 90 days HPI Comments Details: Felicita was referred here for management of atrial fibrillation from the emergency room. She is a 49 year female with prior history of hypertension, diabetes, morbid obesity, mild alcohol use. Patient recently while working developed symptoms of fluttering in his chest which did not subside for couple of hours and then did not fell well. Had EKG performed where she works and was noted to be in atrial fibrillation was referred to the emergency room. Prior to coming to the emergency room symptoms subsided and she had come back to normal sinus rhythm but she remained anxious and stressed out and felt palpitations. Patient subsequently was started on metoprolol 50 mg as well as Eliquis for oral anticoagulation therapy. Since then she has had no recurrent episodes. However on Thursday she felt symptoms of chest tightness and subsequently was diagnose with bronchitis and currently on oral antibiotics and inhaler therapy. She says she is feeling well from that perspective. She has significant snoring and daytime somnolence. She has tried multiple times in the past with lose weight with Ozempic and has been successful but due to insurance changes this was declined and she is currently not taking it. She denies any orthopnea, PND, leg edema. No clear exertional chest tightness. [facility] Surgical History Hx of hernia repair Family History Maternal Grandmother Ovarian cancer CHF (congestive heart failure) Other ADHD FH: mental illness Substance abuse Social History Housing: House Alcohol intake: current Alcohol intake frequency: 3 or more drinks per day Alcohol type: hard liquor Patient Tobacco Use Status: Former Tobacco user e-Cigarette/Vaping Use: Never Used Second Hand Smoke Exposure: No service: No Current occupational status: employed Current occupation: [employer] [place] Current occupational exposures/hazards: Yes Cognitive needs: No Hearing needs: No Vision needs: No Review of Systems Const Denies chills, Denies daytime sleepiness, Denies fatigue, Denies fever(s), Denies frequent falls, Denies poor appetite, Denies snoring, Denies stops breathing during sleep, Denies weakness, Denies weight gain and Denies weight loss Eyes Denies loss of vision ENT Denies dizziness and Denies hearing loss Card Denies chest pain, Denies claudication, Denies leg edema, Denies lightheadedness, Denies palpitations, Denies dyspnea, Denies dyspnea on exertion and Denies orthopnea Resp Denies cough, Denies excessive phlegm production, Denies dyspnea, Denies dyspnea on exertion, Denies snoring and Denies wheezing GI Denies abdominal pain, Denies hematochezia, Denies change in bowel habits, Denies nausea and Denies vomiting Denies urinary frequency and Denies dysuria Musc Denies arthralgias, Denies muscle weakness, Denies numbness and Denies other (frequent falls) Skin/Breast Denies nail changes and Denies rash Neuro Denies Abnormal speech present, Denies dizziness, Denies frequent falls, Denies loss of vision, Denies memory loss, Denies numbness and Denies weakness Psych Denies depression and Denies memory loss Endo Denies fatigue and Denies palpitations Kendall/Lymph Reports easy bruising and Reports other (anemia) Aller/Immun Denies wheezing Physical Exam Vital Signs: Last Vital Signs Pulse 87 06/06/24 13:41 BP 118/74 06/06/24 13:41 BMI result Body Mass Index 53.2 Const General: cooperative, comfortable, no acute distress, alert and awake Nutritional Appearance: obese morbidly obese Orientation/consciousness: patient oriented x3 Limitations: no limitations HEENT Head: Yes normocephalic and Yes atraumatic Neck Neck: Yes trachea midline, Yes supple and Yes no JVD Resp Effort & Inspection: normal respiratory effort Auscultation: clear to auscultation bilaterally and diminished lung sounds Cardio Jugular venous distension: no JVD Rate: regular rate Rhythm: regular rhythm Heart sounds: S1 normal heart sound present, S2 normal heart sound present, no click, no gallops, no murmurs and no rubs GI Auscultation: normal bowel sounds Skin General skin exam: no rashes or lesions noted Neuro General: patient oriented x3 and no focal motor deficits Speech: No Abnormal speech present Extrem General: Yes no clubbing, cyanosis or edema Office Procedures EKG Details: EKG shows normal sinus rhythm with rightward axis with incomplete right bundle- branch block 73144-[id number], Complete Assessment & Plan Assessment & Plan (1) Paroxysmal atrial fibrillation: Code(s): I48.0 - Paroxysmal atrial fibrillation Category: Medical Plan: Symptomatic paroxysmal atrial fibrillation this middle-aged woman with multiple risk factors including hypertension, diabetes, morbid obesity and high likelihood of underlying obstructive sleep apnea. She needs workup for sleep apnea will suggest a home sleep study for the same given she was significant symptoms related to it. CHADSVASc score of 3 and recommend oral anticoagulation therapy for life. Continue Eliquis 5 mg b.i.d.. Semi annual renal function test should be pursued. Continue metoprolol to reduce recurrence of atrial fibrillation. Further treatment based on the finding of sleep study. If she was significant sleep apnea will benefit from CPAP therapy. She would also benefit from significant weight loss and this was discussed with her. Given that she is not more cardiovascular morbidity, could pursue GLP 1 antagonist therapy again. Given the intermittent episode of chest tightness risk factors would suggest to rule out myocardial ischemia suggest a vasodilating myocardial perfusion imaging as she can not exercise on the treadmill. Avoidance of stimulants such as alcohol and caffeine was discussed. Continue aggressive blood pressure control which is currently well optimized. Will obtain a Holter monitor for 7 days to assess for any burden of atrial fibrillation. Follow up in the clinic in 2 months time, sooner p.r.n.. Thank you for allowing me to partake in her care Orders: Orders CA lexiscan stress w dougie Today R07.89 - Other chest pain ECG 7 day holter monitor Today I48.0 - Paroxysmal atrial fibrillation RT home sleep study Today I48.0 - Paroxysmal atrial fibrillation, R40.0 - Somnolence Coding Level of Care Code New Pt Level 4 (61375) Complex EM visit Add On G2211 Diagnoses Paroxysmal atrial fibrillation I48.0 CPT Codes EKG - CPT: 75634-[id number], Complete ([id number])
== END 2024-06-06 14:10 | disposition home or self-care (01) ==
PROVIDERS: PCP Physician Assistant; Visit Provider Internal Medicine Cardiovascular Disease
DX: I48.0 Paroxysmal atrial fibrillation (principal)
CPT/HCPCS: 93010; 99214; G2211

== ENCOUNTER → 2024-06-06 13:28 | Outpatient (BNVA) | payer OTHER, SELFPAY | PROVIDERS: PCP Physician Assistant; Visit Provider Internal Medicine Cardiovascular Disease | DX: I48.0 Paroxysmal atrial fibrillation (principal); E11.65 Type 2 diabetes mellitus with hyperglycemia; E03.9 Hypothyroidism, unspecified; E78.5 Hyperlipidemia, unspecified; E66.01 Morbid (severe) obesity due to excess calories; J45.909 Unspecified asthma, uncomplicated; I10 Essential (primary) hypertension; M19.90 Unspecified osteoarthritis, unspecified site; R07.89 Other chest pain; R40.0 Somnolence; Z68.43 Body mass index [BMI] 50.0-59.9, adult; Z87.891 Personal history of nicotine dependence; Z79.01 Long term (current) use of anticoagulants; Z79.899 Other long term (current) drug therapy | CPT/HCPCS: 93005; 99212 ==

== ENCOUNTER 2024-06-06 15:07 | Outpatient (AMB) | payer OTHER, SELFPAY ==
[2024-06-06 15:38] VITALS: BP 114/72; PULSE 84; TEMP -13.6; TEMP 7.5; O2SAT 97; BMI 53.4
--- NOTE | 2024-06-06 15:38 | MHC.PC.OV ---
Vital Signs 06/06/24 15:38 Height 5 ft 5 in Weight 321 lb BMI 53.4 BP 114/72 Blood Pressure Location Lt brachial Position Sitting Pulse 84 Pulse Source Pulse Oximeter Temp 7.5 F L Temp Source Temporal Artery Scan Pulse Oximetry (%) 97 Oxygen Delivery Method Room Air Intake Visit Reasons: [facility] 06/01 chest fluttering, a-fib on monitor Home Health Rn Required: No Accompanied by: Self / Same As Patient Allergies No Known Allergies Allergy (Verified 06/06/24 16:03) Medication List - Last Reconciled 06/06/24 by Kian Hannon PA-C albuterol sulfate 2.5 mg (3 mL) inhalation Q4-6H PRN albuterol sulfate 90 mcg/actuation (Ventolin HFA) inhalation apixaban (Eliquis) 5 mg PO BID 90 days budesonide 180 mcg/actuation (Pulmicort Flexhaler) 1 inh inhalation BID 30 days celecoxib 200 mg PO DAILY 90 days hydrochlorothiazide 50 mg PO DAILY 90 days levalbuterol HCl mg inhalation levothyroxine mcg PO DAILY losartan 50 mg PO DAILY metformin 500 mg PO BID 90 days metoprolol succinate ER 50 mg PO DAILY 90 days Tobacco use date assessed: 03/29/24 Dental Screening Dental Screen Date: 03/29/24 HPI [facility] 06/01 chest fluttering, a-fib on monitor HPI Details Patient is a 49-year-old female here today for an ER follow-up visit. Patient has a past medical history significant for asthma, former smoker, type 2 diabetes, obesity, hyperlipidemia, hypothyroidism and hypertension. Recently seen at urgent care for reports of heart palpitations/fluttering in chest. Was found to have AFib on EKG. Was sent to the [place] [facility] to which she was in normal sinus rhythm though tachycardic. Echocardiogram was done which showed normal EF. She has followed up with cardiology and will be sent for Holter monitor and sleep study. She has completely stopped drinking alcohol in hopes that this will help her cardiac rhythm. Diabetes: She has started metformin about a week ago though does report having multiple episodes of watery diarrhea. We did discuss changing medication though she would like to hold off and continue using metformin to see if side effects go away. We have tried to prescribe her Ozempic which she was on the past though insurance did not cover. [facility] Surgical History Hx of hernia repair Family History Maternal Grandmother Ovarian cancer CHF (congestive heart failure) Other ADHD FH: mental illness Substance abuse Social History Housing: House Alcohol intake: current Alcohol intake frequency: 3 or more drinks per day Alcohol type: hard liquor Patient Tobacco Use Status: Former Tobacco user e-Cigarette/Vaping Use: Never Used Second Hand Smoke Exposure: No service: No Current occupational status: employed Current occupation: [employer] [place] Current occupational exposures/hazards: Yes Cognitive needs: No Hearing needs: No Vision needs: No Questionnaire Thrive Questionnaire Date Thrive assessed: 03/29/24 I am a: Patient What is your living situation today?: I have a steady place to live Within the past 12 months, did the food you bought not last and you didn't have the money to get more?: I choose not to answer this question Within the past 12 months, did you worry whether your food would run out before you got money to buy more?: I choose not to answer this question Do you have trouble paying for medicines?: I choose not to answer this question Do you have trouble getting transportation to medical appointments?: I choose not to answer this question Do you have trouble paying your heating and electricity bill?: I choose not to answer this question Do you have trouble taking care of your child, family member or friend?: I choose not to answer this question Do you have trouble with day-to-day activities such as bathing, preparing meals, shopping, managing finances, etc.?: I choose not to answer this question Are you currently unemployed and looking for a job?: I choose not to answer this question Are you interested in more education?: I choose not to answer this question Please select the resources that you would like help with: None Currently or been in a relationship where the following occur: I choose not to answer THRIVE Score: 0 SABA-7 AMB Questionnaire SABA-7 Date SABA - 7 assessed: 03/29/24 Source: Developed by Drs. Sourav Rosa, Janelle BDangelo Monge and colleagues, with an educational marissa from [employer]. Review of Systems Const Denies headache(s) Eyes Denies loss of vision ENT Denies vertigo, Denies dizziness, Denies headache(s) and Denies sore throat Card Denies chest pain, Denies leg edema and Denies lightheadedness Resp Denies cough, Denies hemoptysis and Denies wheezing GI Denies abdominal pain, Denies melena, Denies constipation, Denies diarrhea and Denies vomiting Denies urinary frequency, Denies dysuria and Denies urinary urgency Musc Denies arthralgias, Denies joint swelling, Denies numbness and Denies tingling Neuro Denies Abnormal speech present, Denies behavioral changes, Denies vertigo, Denies dizziness, Denies headache(s), Denies loss of vision, Denies memory loss, Denies numbness and Denies tingling Psych Denies anxiety, Denies behavioral changes, Denies depression, Denies memory loss and Denies panic attacks Kendall/Lymph Denies easy bleeding and Denies easy bruising Aller/Immun Denies wheezing Physical exam (Primary Care) Vital Signs: Last Vital Signs Temp 7.5 F L 06/06/24 15:38 Pulse 84 06/06/24 15:38 BP 114/72 06/06/24 15:38 Pulse Ox 97 06/06/24 15:38 Oxygen Delivery Method Room Air 06/06/24 15:38 BMI result Body Mass Index 53.4 Tobacco/Smoking Status: Tobacco use Status Tobacco use date assessed 03/29/24 06/06/24 15:38 Patient Tobacco Use Status Former Tobacco user 06/06/24 15:38 e-Cigarette/Vaping Use Never Used 06/06/24 15:38 Thrive Assessment: Date of Thrive Assessment Date Thrive assessed 03/29/24 06/06/24 15:38 Currently or been in a relationship where the following occur: I choose not to answer Const General: healthy appearing, no acute distress, alert and awake Nutritional Appearance: well nourished Orientation/consciousness: oriented to person, oriented to place and oriented to time HENMT Ears: TM's normal bilaterally General nose exam: Normal nasal mucous membranes and turbinates present Eyes Conjunctivae: conjunctivae normal Sclerae: sclerae normal Pupils: Equal, round and reactive pupils present Neck Neck: Yes no lymphadenopathy and Yes no JVD Thyroid: Thyroid normal Carotids: no bruits Resp Effort & Inspection: normal respiratory effort and not tachypneic Auscultation: no crackles, no rales, no rhonchi and no wheezes Cardio Rate: regular rate Rhythm: regular rhythm Heart sounds: no murmurs and normal S1 and S2 GI Palpation (GI): Soft to palpation, nontender, no hepatomegaly and no splenomegaly Auscultation: normal bowel sounds Skin General skin exam: no rashes or lesions noted and dry skin Neuro General: oriented to person, oriented to place and oriented to time Cranial nerves: Yes Equal, round and reactive pupils present Speech: No Abnormal speech present Gait exam (Neuro): Normal gait present Motor exam (neuro): no tremor noted Extrem Right upper extremity: full ROM Left upper extremity: full ROM Right lower extremity: full ROM; no edema Left lower extremity: full ROM; no edema Psych Mental Status: mental status grossly normal Speech and movement: Normal speech and movement present Affect: normal affect Attitude: cooperative Thought process: Normal thought process present Coding Level of Care Code Est Pt Level 4 (27663) Diagnoses Paroxysmal atrial fibrillation I48.0 Primary hypertension I10 Hypertension type: primary hypertension Type 2 diabetes mellitus with hyperglycemia, without long-term current use of insulin E11.65 Diabetes mellitus fpc insulin use: without terminal supervisor use Diabetes mellitus complication status: with hyperglycemia Assessment & Plan Assessment & Plan (1) Paroxysmal atrial fibrillation: Code(s): I48.0 - Paroxysmal atrial fibrillation Category: Medical Plan: Patient now rate controlled with metoprolol and anticoagulated with Eliquis. She has followed up with Cardiology will be sent for sleep study and Holter monitor. She has stopped her drinking since last Thursday. She will continue cardiology workup. She denies any overt signs of bleeding since being on anticoagulation. Reports her heart palpitations have resolved. (2) HTN (hypertension): Code(s): I10 - Essential (primary) hypertension Category: Medical Qualifiers: Hypertension type: primary hypertension Qualified Code(s): I10 - Essential (primary) hypertension Plan: Patient's blood pressure acceptable today in office. She continues on losartan hydrochlorothiazide with decent blood pressure control. She is now also on metoprolol. She is a former smoker quit in 2019. Goal blood pressures to remain below 140/90 (3) DMII (diabetes mellitus, type 2): Code(s): E11.9 - Type 2 diabetes mellitus without complications Category: Medical Qualifiers: Diabetes mellitus terminal supervisor insulin use: without fpc use Diabetes mellitus complication status: with hyperglycemia Qualified Code(s): E11.65 - Type 2 diabetes mellitus with hyperglycemia Plan: She has started metformin though has had loose watery diarrhea. She will try to give metformin a few more weeks to see if side effects resolve. We have tried to prescribed GLP 1 though had not been covered through insurance.. Goal A1c is to remain below 7.0 Medications: Discontinued celecoxib Discontinued Reason: Doctor's Order 200 mg PO DAILY 90 days 90 caps 1RF moderate pain M19.90 - Unspecified osteoarthritis, unspecified site
== END 2024-06-06 16:41 | disposition home or self-care (01) ==
LOC: HO.HMCH 15:08
PROVIDERS: PCP Physician Assistant; Visit Provider Physician Assistant
DX: I48.0 Paroxysmal atrial fibrillation (principal); I10 Essential (primary) hypertension; E11.65 Type 2 diabetes mellitus with hyperglycemia

== ENCOUNTER 2024-06-22 10:07 | Emergency (ER) | payer OTHER, SELFPAY ==
--- NOTE | ~2024-06-22 | XR_ITS ---
EXAMINATION: XR CHEST CLINICAL INFORMATION: cough, dyspnea COMPARISON: June 01, 2024. TECHNIQUE: 2 views of the chest were obtained. FINDINGS: Poor inspiration. No consolidation, pleural effusion or pneumothorax. Cardiomediastinal silhouette size is normal. Osseous structures are intact. Degenerative changes in the left acromioclavicular joint.. XR/XR chest 2V IMPRESSION: No acute airspace disease. Electronically signed by: Joselito Villaseñor MD 06/22/2024 11:23 AM EDT
--- NOTE | ~2024-06-22 | CT_ITS ---
EXAMINATION: CT CHEST WITH CONTRAST CLINICAL INFORMATION: Left-sided pneumonia. COMPARISON: None available. TECHNIQUE: Multidetector volumetric CT imaging of the chest was obtained after the administration of 65 mL of Omnipaque 350 intravenous contrast without immediate adverse reactions. Axial MIP volume rendering provided. Sagittal and coronal reformatted images were obtained. This CT examination was performed using dose optimization techniques as appropriate, variously including the following: *Automated exposure control *Adjustment of mA and/or kV according to patient size (this includes techniques or standardized protocols for targeted exams where dose is matched to indication/reason for exam; i.e. extremities or head) *Use of iterative reconstruction technique. DLP: 427 mGy centimeter. FINDINGS: HIDE OR SKIN BUFFER: Large body habitus. LUNGS: Multifocal patchy pulmonary groundglass extending from the peribronchial septal, right lower lung lobe. No bronchiectasis. No honeycombing. MEDIASTINUM: 12 mm right pretracheal lymph node. No pericardial effusion. No aneurysm or dissection, thoracic aorta. Calcified plaques in the aortic valve. PLEURA: No pleural effusion. No pneumothorax. AXILLA: No lymphadenopathy. UPPER ABDOMEN: Mild soft tissue fullness left adrenal gland. OSSEOUS STRUCTURES: No acute fracture or listhesis in the axial skeleton. No lytic or blastic lesions. Old healed rib fractures in the posterior lateral aspect ribs left hemithorax. CT/CT chest w IV con IMPRESSION: Acute airspace disease/pneumonia, right lower lung lobe with reactive mediastinal lymph nodes. Fleischner guidelines were followed. Electronically signed by: Joselito Villaseñor MD 06/22/2024 12:15 PM EDT
--- NOTE | 2024-06-22 10:09 | ED_ITS ---
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 Recently treated for right sided pneumonia, states completed full course of antibiotics (doxy and cefdinir). Denies fever. Had CXR at urgent care today and was told this showed bilateral lobe pneumonia. Medicated with prednisone and given Duoneb there. Denies chest pain or palpitations. MD complaint: cough, shortness of breath Onset (ago): day(s) Related Data Home Medications ?Medication ?Instructions ?Recorded ?Confirmed albuterol sulfate 90 mcg/actuation inhalation 03/29/24 06/06/24 aerosol inhaler (Ventolin HFA) levothyroxine 75 mcg tablet mcg PO DAILY 03/29/24 06/06/24 levalbuterol HCl 1.25 mg/3 mL mg inhalation 06/06/24 06/06/24 solution for nebulization losartan 50 mg tablet 50 mg PO DAILY 06/06/24 06/06/24 Previous Rx's ?Medication ?Instructions ?Recorded albuterol sulfate 2.5 mg/3 mL 2.5 mg (3 mL) inhalation Q4-6H PRN 03/03/23 (0.083 %) solution for nebulization shortness of breath or wheezing #90 mL budesonide 180 mcg/actuation 1 inh inhalation BID 30 days #1 ea 03/29/24 breath activated powder inhaler (Pulmicort Flexhaler) hydrochlorothiazide 50 mg tablet 50 mg PO DAILY 90 days #90 tabs 03/29/24 metformin 500 mg tablet 500 mg PO BID 90 days #180 tabs 05/26/24 apixaban 5 mg tablet (Eliquis) 5 mg PO BID 90 days #180 tabs 06/01/24 metoprolol succinate 50 mg 50 mg PO DAILY 90 days #90 tabs 06/01/24 tablet,extended release 24 hr levofloxacin 750 mg tablet 750 mg PO DAILY #5 tabs 06/22/24 Allergies Allergy/AdvReac Type Severity Reaction Status Date / Time No Known Allergies Allergy Verified 06/22/24 10:24 Review of Systems 2 Review of Systems: As per HPI Yes all other systems are reviewed and are negative Constitutional: Constitutional: Reports as per HPI [facility] Past Medical History Surgical History Hx of hernia repair Family History Family History Maternal Grandmother Ovarian cancer CHF (congestive heart failure) Other ADHD FH: mental illness Substance abuse Social History Social History Housing: House Alcohol intake: current Alcohol intake frequency: 3 or more drinks per day Alcohol type: hard liquor Patient Tobacco Use Status: Former Tobacco user Smoked in Last 30 Days: No e-Cigarette/Vaping Use: Never Used Second Hand Smoke Exposure: No Use of substances other than those prescribed or required for medical reasons: No Advance Directives: No Advance Directives Information Provided: Yes Do you have a plan to hurt others: No Plan Patient : No service: No Current occupational status: employed Current occupation: [employer] [place] Current occupational exposures/hazards: Yes Cognitive needs: No Hearing needs: No Vision needs: No Physical Exam ED Vital Signs: Vital Signs - 24 hr 06/22/24 10:21 06/22/24 10:26 06/22/24 12:26 Temperature 98.1 F 98.1 F Pulse Rate 79 79 85 Respiratory Rate 20 20 18 Blood Pressure 114/57 L 114/57 L Pulse Oximetry 94 94 Oxygen Delivery Method Nasal Cannula Nasal Cannula 06/22/24 13:47 Temperature 98.3 F Pulse Rate 105 H Respiratory Rate 20 Blood Pressure 110/70 Pulse Oximetry 96 Oxygen Delivery Method Room Air BMI result Body Mass Index 59.9 Vital signs have been reviewed and appear to be correct. Blood pressure normal. Heart rate normal. Respiratory rate normal. Temperature normal. Oxygen saturation normal. Const General: cooperative and no acute distress Orientation/consciousness: oriented to person, oriented to place, oriented to time and patient oriented x3 Limitations: no limitations HENMT Head: Yes normocephalic and Yes atraumatic Ears: external ears normal General nose exam: Normal external nose present Face and sinus: Yes face symmetric Mouth: oropharynx normal and moist mucous membranes Throat: Yes uvula midline Eyes Pupils: Equal, round and reactive pupils present Neck Neck: Yes normal visual inspection and Yes supple Resp Effort & Inspection: normal respiratory effort and able to speak in complete sentences Auscultation: clear to auscultation bilaterally, crackles on the right at the base and no wheezes Cardio Rate: regular rate Rhythm: regular rhythm Heart sounds: S1 normal heart sound present and S2 normal heart sound present GI Palpation (GI): Soft to palpation and nontender Auscultation: normoactive bowel sounds General: Yes no CVA tenderness Back/Spine/Pelvis Back: no CVA tenderness Skin General skin exam: elasticity normal and turgor normal Neuro General: oriented to person, oriented to place, oriented to time, patient oriented x3, moves all extremities, no focal motor deficits and CN's II-XI intact bilaterally Cranial nerves: Yes Equal, round and reactive pupils present Cognition (Neuro): normal cognition Extrem General: Yes full ROM, Yes no pedal edema and Yes no calf tenderness Psych Mental Status: mental status grossly normal Affect: normal affect Thought process: Normal thought process present Medications Administered Discontinued Medications Generic Name Dose Route Start Last Admin Trade Name Freq PRN Reason Stop Dose Admin Levalbuterol HCl 3.75 mg/ 0 mg 06/22/24 12:21 06/22/24 12:26 Ipratropium Taylor 0.5 mg INHALE 06/22/24 12:22 7.5 dose ONCE ONE Administration Iohexol 100 ml 06/22/24 12:02 06/22/24 12:02 Iohexol 350 Mg/Ml 100 Ml Infus..Btl IV 06/22/24 12:03 65 ml ONCE ONE Administration Medical Decision Making Medical Decision Making MDM Narrative: Patient is a 49-year-old female with history of T2DM, HTN, hypothyroidism, obesity, alcohol use, asthma, afib on Eliquis 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 On exam patient is awake, A+Ox3, VS WNL, afebrile, normal neurological exam without focal deficits, physical exam findings as above. Given reported symptoms and physical exam findings, initial differential includes but is not limited to viral illness, covid, flu, RSV, bronchitis, pneumonia, asthma exacerbation. Labs notable for no leukocytosis, mild hypokalcemia, elevated glucose without anion gap. X-ray chest notable for no evidence of pnuemonia. Given that patient reports CXR at urgent care showed PNA, will obtain CT chest. CT chest notable for right lower lobe pneumonia. My interpretation is in agreement with the radiologist's interpretation. Patient able to maintain oxygen saturation of 95% on room air with ambulation. Feel patient is stable for discharge home at this time. Will treat with levofloxacin. Instructed patient to follow up with PCP for follow-up imaging to ensure resolution of pneumonia. Return precautions discussed. Patient verbalized understanding of and agreement with plan. Differential Diagnosis Differential Diagnoses: The differential diagnosis associated with the presentation includes As per [facility] Admission/Observation Consideration of admission/observation: Escalation of care including admission/observation considered Patient would have been admitted to the hospital had their work up had any findings where hospital admission was appropriate and their clinical presentation warranted hospital admission. Lab Data [facility] Lab Attestation statement: I reviewed the patient's lab results. As per [facility] 06/22/24 10:40 06/22/24 10:40 Labs: Lab Results 06/22/24 Range/Units 10:40 WBC 7.0 (4.8-10.8) X10*3/uL RBC 4.18 L (4.20-5.50) X10*6/uL Hgb 13.4 (12.0-16.0) g/dl Hct 39.6 (37.0-47.0) % MCV 94.7 (80.0-98.0) fL MCH 32.1 (27.0-33.0) pg MCHC 33.8 (31.0-35.0) g/dl RDW 12.6 (11.0-16.0) % Plt Count 276 (160-400) X10*3/uL MPV 9.3 L (9.4-12.3) fL Immature Gran % (Auto) 0.6 H (0.0-0.4) % Neut % (Auto) 78.9 H (45-73) % Lymph % (Auto) 12.8 L (20-40) % [place] % (Auto) 5.4 (2-11) % Eos % (Auto) 1.6 (0-4) % Baso % (Auto) 0.7 (0-2) % Lymph # (Auto) 0.9 L (1.2-4.9) X10*3/uL [place] # (Auto) 0.4 (0.1-1.2) X10*3/uL Eos # (Auto) 0.1 (0.0-0.4) X10*3/uL Baso # (Auto) 0.1 (0.0-0.2) X10*3/uL Abs Immat Gran (auto) 0.04 H (0.00-0.03) X10*3/uL Absolute Neuts (auto) 5.5 (2.0-8.3) x10*3/uL Absolute Nucleated RBC 0.000 (0.0-0.012) X10*3/uL Nucleated RBC % (auto) 0.0 (0.0-0.2) /100WBC Sodium 138 (135-145) mmol/L Potassium 3.0 L (3.3-5.1) mmol/L Chloride 97 (96-108) mmol/L Carbon Dioxide 29 (22-29) mmol/L Anion Gap 15 (12-20) BUN 13 (9-16) mg/dL Creatinine 0.76 (0.5-1.4) mg/dL Estim Creat Clear Calc 123.7 Estimated GFR > 60 Random Glucose 219 H (60-115) mg/dL Calcium 9.3 (8.4-10.2) mg/dL Total Bilirubin 0.7 (0.0-1.0) mg/dL AST 29 (5-31) U/L ALT 31 (0-31) U/L Alkaline Phosphatase 68 (39-117) U/L Total Protein 6.7 (6.5-8.0) g/dL Albumin 3.8 (3.5-5.0) g/dL Influenza Type A (PCR) NEGATIVE (Negative) Influenza Type B (PCR) NEGATIVE (Negative) RSV RNA Qual (PCR) NEGATIVE (Negative) SARS-CoV-2 RNA (RT-PCR) NEGATIVE (Negative) Independent Interpretation I performed an independent interpretation of an: Plain X-Ray and CT Scan Interpretation: X-ray chest notable for no evidence of pnuemonia. CT chest notable for right lower lobe pneumonia. Radiology Impression Discussion of test interpretation with radiology: I have reviewed the radiologist's reading. Radiologist Impression: CT/CT chest w IV con IMPRESSION: Acute airspace disease/pneumonia, right lower lung lobe with reactive mediastinal lymph nodes. XR/XR chest 2V IMPRESSION: No acute airspace disease. External Record Review External record reviewed: Inpatient record, Office record and Outpatient record Prescription Management I considered prescription management with: Antibiotic Discharge Plan Discharge Clinical Impression: Right lower lobe pneumonia Patient Disposition: Home, Self-Care Instructions: Community Acquired Pneumonia (DC) Additional Instructions: You were evaluated in the emergency department today for cough and shortness of breath. The CT scan of your chest shows evidence of ongoing right lower lobe pneumonia. You are being treated with antibiotics, please complete the full course as prescribed. Please call your primary care provider within the next 2- 3 days to schedule a follow-up appointment. You will need a repeat chest x-ray to confirm resolution of your pneumonia. Return to the emergency department if you develop worsening shortness of breath, chest pain, palpitations, fever 100.4? F or greater, or any other concerning symptoms. Prescriptions: New levofloxacin 750 mg tablet 750 mg PO DAILY Qty: 5 0RF No Action metformin 500 mg tablet 500 mg PO BID 90 Days Qty: 180 1RF Eliquis 5 mg tablet 5 mg PO BID 90 Days Qty: 180 0RF metoprolol succinate 50 mg tablet extended release 24 hr 50 mg PO DAILY 90 Days Qty: 90 0RF albuterol sulfate 2.5 mg /3 mL (0.083 %) solution for nebulization 2.5 mg inhalation Q4-6H PRN (Reason: shortness of breath or wheezing) Qty: 90 0RF levothyroxine 75 mcg tablet PO DAILY albuterol sulfate [Ventolin HFA] 90 mcg/actuation HFA aerosol inhaler inhalation Pulmicort Flexhaler 180 mcg/actuation aerosol powdr breath activated 1 inh inhalation BID 30 Days Qty: 1 6RF hydrochlorothiazide 50 mg tablet 50 mg PO DAILY 90 Days Qty: 90 1RF losartan 50 mg tablet 50 mg PO DAILY levalbuterol HCl 1.25 mg/3 mL solution for nebulization inhalation Stand Alone Forms: Work/School Release Print Language: Citizen [place]
[2024-06-22 10:21] VITALS: BP 114/57; BP 130/84; PULSE 79; PULSE 91; RESP 20; TEMP 36.7; O2SAT 94; O2SAT 98; BMI 59.9
--- NOTE | 2024-06-22 10:24 | ECG_ITS ---
Test Reason : SOB Blood Pressure : */* mmHG Vent. Rate : 84 BPM Atrial Rate : 84 BPM P-R Int : 148 ms QRS Dur : 98 ms QT Int : 372 ms P-R-T Axes : 86 53 19 degrees QTcB Int : 439 ms Normal sinus rhythm Incomplete right bundle branch block Borderline ECG When compared with ECG of 01-Jun-2024 11:34, No significant change was found Referred By: Vanessa Bernstein Electronically Signed By: ERICA TORRES MD
[2024-06-22 10:26] VITALS: BP 114/57; PULSE 79; RESP 20; TEMP 36.7; O2SAT 94
[2024-06-22 10:45] LABS: MANUAL DIFF FLAG NO
[2024-06-22 10:51] LABS: Basophils Absolute Auto 0.1 X10*3/uL (0.0-0.2); Basophils Percent Auto 0.7 % (0-2); Eosinophils Absolute Auto 0.1 X10*3/uL (0.0-0.4); Eosinophils Percent Auto 1.6 % (0-4); Hematocrit 39.6 % (37.0-47.0); Hemoglobin 13.4 g/dl (12.0-16.0); Imm Gran Abs Auto 0.04 X10*3/uL (0.00-0.03); Imm Gran Pct Auto 0.6 % (0.0-0.4); Lymphocytes Absolute Auto 0.9 X10*3/uL (1.2-4.9); Lymphocytes Percent Auto 12.8 % (20-40); Mean Corpuscular HGB Conc 33.8 g/dl (31.0-35.0); Mean Corpuscular Hemoglobin 32.1 pg (27.0-33.0); Mean Corpuscular Volume 94.7 fL (80.0-98.0); Mean Platelet Volume 9.3 fL (9.4-12.3); Monocytes Absolute Auto 0.4 X10*3/uL (0.1-1.2); Monocytes Percent Auto 5.4 % (2-11); Neutrophils Absolute Auto 5.5 x10*3/uL (2.0-8.3); Neutrophils Percent Auto 78.9 % (45-73); Platelet Count 276 X10*3/uL (160-400); Red Blood Count 4.18 X10*6/uL (4.20-5.50); Red Cell Distribution Width 12.6 % (11.0-16.0)
[2024-06-22 11:13] LABS: Alanine Aminotransferase 31 U/L (0-31); Albumin Level 3.8 g/dL (3.5-5.0); Alkaline Phosphatase 68 U/L (39-117); Anion Gap 15 (12-20); Aspartate Amino Transferase 29 U/L (5-31); Bilirubin Total 0.7 mg/dL (0.0-1.0); Blood Urea Nitrogen 13 mg/dL (9-16); Calcium 9.3 mg/dL (8.4-10.2); Carbon Dioxide 29 mmol/L (22-29); Chloride 97 mmol/L (96-108); Creatinine Clr Calc Pharmacy 123.7; Estimated Glomerular Filt Rate > 60; Glucose Random 219 mg/dL (60-115); Sodium 138 mmol/L (135-145); Total Protein 6.7 g/dL (6.5-8.0)
[2024-06-22 11:25] LABS: Influenza A PCR NEGATIVE (Negative); Influenza B PCR NEGATIVE (Negative); Resp Syncy Virus RNA Qual PCR NEGATIVE (Negative); SARS COV2 PCR INHOUSE NEGATIVE (Negative)
[2024-06-22] MEDS: iohexoL 350 MG/ML 100 ML INFUS..BTL IV (12:02)
[2024-06-22 12:26] VITALS: PULSE 85; RESP 18; O2SAT 95
[2024-06-22] MEDS: levalbuterol HCL 3.75 MG, Ipratropium Bromide 0.5 MG INHALE (12:26)
[2024-06-22 13:47] VITALS: BP 110/70; PULSE 105; RESP 20; TEMP 36.8; O2SAT 96
[2024-06-22] MEDS: Potassium Chloride Packet 20 MEQ PACKET 40 MEQ PO (14:12)
[2024-06-22 14:13] VITALS: BP 108/68; PULSE 93; RESP 18; TEMP 36.8; O2SAT 94
[2024-06-22 14:26] VITALS: BP 108/68; PULSE 93; RESP 18; TEMP 36.8; O2SAT 94
== END 2024-06-22 14:27 | disposition home or self-care (01) ==
PROVIDERS: Registered Nurse Emergency; Emergency Provider Emergency Medicine; PCP Physician Assistant
DX: J18.9 Pneumonia, unspecified organism (principal); R05.9 Cough, unspecified; R06.02 Shortness of breath; E11.9 Type 2 diabetes mellitus without complications; I10 Essential (primary) hypertension; I48.0 Paroxysmal atrial fibrillation; E03.9 Hypothyroidism, unspecified; J45.909 Unspecified asthma, uncomplicated; E66.9 Obesity, unspecified; Z68.43 Body mass index [BMI] 50.0-59.9, adult; Z03.818 Encounter for observation for suspected exposure to other biological agents ruled out; Z79.01 Long term (current) use of anticoagulants; Z79.84 Long term (current) use of oral hypoglycemic drugs; Z79.899 Other long term (current) drug therapy
CPT/HCPCS: 0241U; 71046; 71260; 80053; 85025; 93005; 94640; 99284; 99285; Q9967

== ENCOUNTER → 2024-06-22 10:24 | Outpatient (BNV) | payer OTHER, SELFPAY | PROVIDERS: Emergency Provider Emergency Medicine; PCP Physician Assistant; Visit Provider Internal Medicine Cardiovascular Disease | DX: I45.10 Unspecified right bundle-branch block (principal) | CPT/HCPCS: 93010 ==

== ENCOUNTER → 2024-06-22 10:24 | Outpatient (BNV) | payer OTHER, SELFPAY | PROVIDERS: Emergency Provider Emergency Medicine; PCP Physician Assistant; Visit Provider Radiology Diagnostic Radiology | DX: R59.0 Localized enlarged lymph nodes (principal); R06.00 Dyspnea, unspecified | CPT/HCPCS: 71046; 71260 ==

== ENCOUNTER → 2024-06-28 12:48 | Outpatient (REF) | payer OTHER, SELFPAY | LOC: HO.CARD 12:48 | PROVIDERS: PCP Physician Assistant; Visit Provider Internal Medicine Cardiovascular Disease | DX: I48.0 Paroxysmal atrial fibrillation (principal); E11.65 Type 2 diabetes mellitus with hyperglycemia; I10 Essential (primary) hypertension; J45.30 Mild persistent asthma, uncomplicated | CPT/HCPCS: 83036; 93242; 99212 ==

== ENCOUNTER → 2024-06-28 12:51 | Outpatient (BNV) | payer OTHER, SELFPAY | PROVIDERS: PCP Physician Assistant; Visit Provider Internal Medicine | DX: I47.10 Supraventricular tachycardia, unspecified (principal) | CPT/HCPCS: 93244 ==

== ENCOUNTER 2024-06-28 14:08 | Outpatient (AMB) | payer OTHER, SELFPAY ==
[2024-06-28 14:14] VITALS: BP 108/70; PULSE 102; TEMP 36.4; O2SAT 94; BMI 58.4
--- NOTE | 2024-06-28 14:14 | A.OFFPC_ITS ---
Vital Signs 06/28/24 14:14 Height 5 ft 2 in Weight 319 lb 2 oz BMI 58.4 BP 108/70 Blood Pressure Location Lt brachial Position Sitting Pulse 102 H Pulse Source Pulse Oximeter Temp 97.5 F Temp Source Temporal Artery Scan Pulse Oximetry (%) 94 Oxygen Delivery Method Room Air Intake Visit Reasons: f/u HTN/ DMII Allergies metformin Adverse Reaction (Intermediate, Uncoded 06/28/24 14:55) Diarrhea Medication List - Last Reconciled 06/28/24 by Kian Hannon PA-C albuterol sulfate 2.5 mg (3 mL) inhalation Q4-6H PRN albuterol sulfate 90 mcg/actuation (Ventolin HFA) inhalation apixaban (Eliquis) 5 mg PO BID 90 days budesonide 180 mcg/actuation (Pulmicort Flexhaler) 1 inh inhalation BID 30 days hydrochlorothiazide 50 mg PO DAILY 90 days levalbuterol HCl mg inhalation levofloxacin 750 mg PO DAILY levothyroxine mcg PO DAILY losartan 50 mg PO DAILY metformin 500 mg PO BID 90 days metoprolol succinate ER 50 mg PO DAILY 90 days Tobacco use date assessed: 03/29/24 Dental Screening Dental Screen Date: 03/29/24 HPI f/u HTN/ DMII HPI Details Patient is a 49-year-old female here today for a follow-up visit. Patient has a past medical history significant for asthma, former smoker, AFIB, type 2 diabetes, obesity, hyperlipidemia, hypothyroidism and hypertension. Recently seen at the [facility] for acute cough and shortness of breath. Was found to have a pneumonia was started on levofloxacin. She reports she is feeling a bit better though still has some chest tightness, wheeze she is attributing to her asthma .. Hypertension: Patient on losartan and hydrochlorothiazide with decent affect on her blood pressure . Today's blood pressure in office acceptable. .. .. Obesity: She does understand her BMI is over 55 and will try to work on better eating habits. She was on Ozempic previously which had helped him lose weight and control her blood sugars. .. Type 2 diabetes: Today's A1c at 7.6, has stopped using metformin due to intolerable side effect of diarrhea. Previously tried to prescribe Ozempic though did not have insurance coverage. She has now failed oral metformin PLAN: Will try Mounjaro for both glycemic control on weight loss and up titrate per response. PFSH Surgical History Hx of hernia repair Family History Maternal Grandmother Ovarian cancer CHF (congestive heart failure) Other ADHD FH: mental illness Substance abuse Social History Housing: House Alcohol intake: current Alcohol intake frequency: 3 or more drinks per day Alcohol type: hard liquor Patient Tobacco Use Status: Former Tobacco user e-Cigarette/Vaping Use: Never Used Second Hand Smoke Exposure: No service: No Current occupational status: employed Current occupation: [employer] - [place] Current occupational exposures/hazards: Yes Cognitive needs: No Hearing needs: No Vision needs: No Questionnaire Thrive Questionnaire Date Thrive assessed: 03/29/24 I am a: Patient What is your living situation today?: I have a steady place to live Within the past 12 months, did the food you bought not last and you didn't have the money to get more?: I choose not to answer this question Within the past 12 months, did you worry whether your food would run out before you got money to buy more?: I choose not to answer this question Do you have trouble paying for medicines?: I choose not to answer this question Do you have trouble getting transportation to medical appointments?: I choose not to answer this question Do you have trouble paying your heating and electricity bill?: I choose not to answer this question Do you have trouble taking care of your child, family member or friend?: I choose not to answer this question Do you have trouble with day-to-day activities such as bathing, preparing meals, shopping, managing finances, etc.?: I choose not to answer this question Are you currently unemployed and looking for a job?: I choose not to answer this question Are you interested in more education?: I choose not to answer this question Please select the resources that you would like help with: None Currently or been in a relationship where the following occur: I choose not to answer THRIVE Score: 0 SABA-7 AMB Questionnaire SABA-7 Date SABA - 7 assessed: 03/29/24 Source: Developed by Drs. Sourav Rosa, Janelle Anderson, Dangelo Adan and colleagues, with an educational marissa from [employer]. Review of Systems Const Denies headache(s) Eyes Denies loss of vision ENT Denies vertigo, Denies dizziness, Denies headache(s) and Denies sore throat Card Denies chest pain, Denies leg edema and Denies lightheadedness Resp Reports cough, Denies hemoptysis and Reports wheezing GI Denies abdominal pain, Denies melena, Denies constipation, Denies diarrhea and Denies vomiting Denies urinary frequency, Denies dysuria and Denies urinary urgency Musc Denies arthralgias, Denies joint swelling, Denies numbness and Denies tingling Neuro Denies Abnormal speech present, Denies behavioral changes, Denies vertigo, Denies dizziness, Denies headache(s), Denies loss of vision, Denies memory loss, Denies numbness and Denies tingling Psych Denies anxiety, Denies behavioral changes, Denies depression, Denies memory loss and Denies panic attacks Kendall/Lymph Denies easy bleeding and Denies easy bruising Aller/Immun Reports wheezing Physical exam (Primary Care) Vital Signs: Last Vital Signs Temp 97.5 F 06/28/24 14:14 Pulse 102 H 06/28/24 14:14 BP 108/70 06/28/24 14:14 Pulse Ox 94 06/28/24 14:14 Oxygen Delivery Method Room Air 06/28/24 14:14 BMI result Body Mass Index 58.4 Tobacco/Smoking Status: Tobacco use Status Tobacco use date assessed 03/29/24 06/28/24 14:14 Patient Tobacco Use Status Former Tobacco user 06/28/24 14:14 e-Cigarette/Vaping Use Never Used 06/28/24 14:14 Thrive Assessment: Date of Thrive Assessment Date Thrive assessed 03/29/24 06/28/24 14:14 Currently or been in a relationship where the following occur: I choose not to answer Const General: healthy appearing, no acute distress, alert and awake Nutritional Appearance: well nourished Orientation/consciousness: oriented to person, oriented to place and oriented to time HENMT Ears: TM's normal bilaterally General nose exam: Normal nasal mucous membranes and turbinates present Eyes Conjunctivae: conjunctivae normal Sclerae: sclerae normal Pupils: Equal, round and reactive pupils present Neck Neck: Yes no lymphadenopathy and Yes no JVD Thyroid: Thyroid normal Carotids: no bruits Resp Effort & Inspection: normal respiratory effort and not tachypneic Auscultation: no crackles, rales, rhonchi and no wheezes Cardio Rate: regular rate Rhythm: regular rhythm Heart sounds: no murmurs and normal S1 and S2 GI Palpation (GI): Soft to palpation, nontender, no hepatomegaly and no splenomegaly Auscultation: normal bowel sounds Skin General skin exam: no rashes or lesions noted and dry skin Neuro General: oriented to person, oriented to place and oriented to time Cranial nerves: Yes Equal, round and reactive pupils present Speech: No Abnormal speech present Gait exam (Neuro): Normal gait present Motor exam (neuro): no tremor noted Extrem Right upper extremity: full ROM Left upper extremity: full ROM Right lower extremity: full ROM; no edema Left lower extremity: full ROM; no edema Psych Mental Status: mental status grossly normal Speech and movement: Normal speech and movement present Affect: normal affect Attitude: cooperative Thought process: Normal thought process present Results AMB Hemoglobin A1c AMB Hemoglobin A1c 7.6 % Last Edit by MONALISA Hernandez on 06/28/24 14:54 Coding Level of Care Code Est Pt Level 4 (33618) Diagnoses Type 2 diabetes mellitus with hyperglycemia, without long-term current use of insulin E11.65 Diabetes mellitus intermediate card tender insulin use: without intermediate card tender use Diabetes mellitus complication status: with hyperglycemia Paroxysmal atrial fibrillation I48.0 Primary hypertension I10 Hypertension type: primary hypertension Mild persistent asthma without complication J45.30 Asthma severity: mild Asthma persistence: persistent Asthma complication type: uncomplicated Assessment & Plan Assessment & Plan (1) DMII (diabetes mellitus, type 2): Code(s): E11.9 - Type 2 diabetes mellitus without complications Category: Medical Qualifiers: Diabetes mellitus fdc insulin use: without intermediate card tender use Diabetes mellitus complication status: with hyperglycemia Qualified Code(s): E11.65 - Type 2 diabetes mellitus with hyperglycemia Plan: Patient was not able to tolerate metformin due to intolerable diarrhea. Will try a monitor for glycemic control and weight loss. Today's A1c is 7.6 Goal A1c is to remain below 7.0 (2) Paroxysmal atrial fibrillation: Code(s): I48.0 - Paroxysmal atrial fibrillation Category: Medical Plan: Patient now rate controlled with metoprolol and anticoagulated with Eliquis. She has followed up with Cardiology will be sent for sleep study and Holter monitor. She has stopped her drinking alcohol. She will continue cardiology workup. Currently has a Holter monitor for further evaluation (3) HTN (hypertension): Code(s): I10 - Essential (primary) hypertension Category: Medical Qualifiers: Hypertension type: primary hypertension Qualified Code(s): I10 - Essential (primary) hypertension Plan: Patient's blood pressure acceptable today in office. She continues on losartan hydrochlorothiazide with decent blood pressure control. She is now also on metoprolol. She is a former smoker quit in 2020. Goal blood pressures to remain below 140/90 (4) Asthma: Code(s): J45.909 - Unspecified asthma, uncomplicated Category: Medical Qualifiers: Asthma severity: mild Asthma persistence: persistent Asthma complication type: uncomplicated Qualified Code(s): J45.30 - Mild persistent asthma, uncomplicated Plan: Patient recently seen at ER for right lobe pneumonia. Was given levofloxacin and reports she is clinically doing a bit better. She does have a levo albuterol liquid and a nebulizer at home she is using quite regularly at this time. She still has some wheeze and rhonchi and will try Mucinex [id number]. Will send prednisone taper which has usually helped her with her acute bronchitis and asthma symptoms. Orders: Orders AMB Hemoglobin A1c Today E11.65 - Type 2 diabetes mellitus with hyperglycemia Medications: New tirzepatide (Mounjaro) for 4 weeks 2.5 mg (0.5 mL) subcut QWEEK 4 weeks 2 mL 1RF E11.65 - Type 2 diabetes mellitus with hyperglycemia prednisone take 3 tabs x3 days, take 2 tabs x 3 days , take 1 tab x 3 days 10 mg PO DIRECTED 9 days 18 tabs 0RF J45.30 - Mild persistent asthma, uncomplicated Discontinued levofloxacin Discontinued Reason: Doctor's Order 750 mg PO DAILY 5 tabs 0RF metformin Discontinued Reason: Doctor's Order 500 mg PO BID 90 days 180 tabs 1RF E11.65 - Type 2 diabetes mellitus with hyperglycemia
== END 2024-06-28 15:06 | disposition home or self-care (01) ==
LOC: HO.HMCH 14:09
PROVIDERS: PCP Physician Assistant; Visit Provider Physician Assistant
DX: E11.65 Type 2 diabetes mellitus with hyperglycemia (principal); I48.0 Paroxysmal atrial fibrillation; I10 Essential (primary) hypertension; J45.30 Mild persistent asthma, uncomplicated

== ENCOUNTER → 2024-08-09 12:53 | Outpatient (REF) | payer OTHER, SELFPAY | LOC: HO.SL 12:53 | PROVIDERS: PCP Physician Assistant; Visit Provider Internal Medicine Cardiovascular Disease | DX: I48.0 Paroxysmal atrial fibrillation (principal); R40.0 Somnolence | CPT/HCPCS: 95806 ==

== ENCOUNTER → 2024-08-09 13:02 | Outpatient (BNV) | payer OTHER, SELFPAY | PROVIDERS: PCP Physician Assistant; Visit Provider Internal Medicine | DX: G47.33 Obstructive sleep apnea (adult) (pediatric) (principal) | CPT/HCPCS: 95806 ==

== ENCOUNTER → 2024-08-16 09:17 | Outpatient (REF) | payer OTHER, SELFPAY ==
--- NOTE | ~2024-08-16 | NM_ITS ---
EXERCISE MYOCARDIAL PERFUSION STUDY INDICATION: Chest tightness to evaluate for myocardial ischemia TECHNIQUE: The patient was brought in for an exercise perfusion study on 08/16/2024. Patient performed exercise as per Ovidio protocol and was injected 45 mCi of sestamibi once target heart rate was achieved. Images were obtained using the SPECT gamma camera interlaced with the gating device. Images were obtained in supine position. Resting perfusion study was performed on 08/18/2024. Patient was administered 45 mCi of sestamibi intravenously at rest. Images were then obtained in supine position. Images obtained without without CT attenuation. Total DLP 200 mGy-cm. Images were processed with the software and compared side to side in short axis, horizontal long axis and vertical long axis views. FINDINGS: Raw images were reviewed The stress perfusion study showed both attenuated as well as nonattenuated corrected images show normal uptake of radiotracer in all segments of the LV myocardium. There is suggestion of left ventricular hypertrophy. The gated study shows normal LV systolic function with visually estimated LVEF of greater than 60%. LV cavity is normal in size. The gated study shows normal systolic wall thickening and contraction of segments. Resting study shows attenuated corrected images show mildly reduced uptake in the apex of the LV myocardium. Nonattenuated corrected images show mildly reduced uptake in the inferior wall of the LV myocardium. Gating at rest reveals normal systolic wall motion with ejection fraction at 60%. The findings are consistent with normal myocardial perfusion. NM/NM dougie perf SPECT rest & str IMPRESSION: 1. Myocardial perfusion imaging study shows normal myocardial perfusion. 2. Gated LVEF is 60%. 3. Transient ischemic dilatation not present. EKG revealed negative for ischemia. Electronically signed by: Keith Ryan MD 08/18/2024 04:34 PM EDT
--- NOTE | 2024-08-16 09:21 | CA_ITS ---
Acquisition Time: 2024-08-16 09:30:31 Total Exercise Time: 00:02:00 Test Indications: CP,Abnormal ECG AFIB,Palpitations Medications: ALBUTEROL ELIQUIS HCTZ LEVOTHYROXINE LOSARTAN METFORMIN METOPROLOL CELICOXIB Protocol: LEXISCAN Max HR: 104 BPM 61% of Pred: 169 BPM Max BP: 120/80 mmHG Max Work Load: 1.0 METS Pharmacological stress test with Lexiscan while pt swings her legs in chair, with reports of fluttering in chest, without any arrythmias, with normotensive response to injection. Nondiagnostic EKG for ischemia. In recovery, fluttering in chest resolved and pt feeling back at baseline. Nuclear images pending. Test reviewed with dr. Ryan. Referred By: Keith Ryan Electronically Signed By: Eduard Felix
== END ==
LOC: HO.CARD 09:17
PROVIDERS: PCP Physician Assistant; Visit Provider Internal Medicine Cardiovascular Disease
DX: R07.89 Other chest pain (principal)
CPT/HCPCS: 78452; 93017; A9500; J0280; J2785

== ENCOUNTER → 2024-08-16 09:21 | Outpatient (BNV) | payer OTHER, SELFPAY | PROVIDERS: PCP Physician Assistant | DX: R94.31 Abnormal electrocardiogram [ECG] [EKG] (principal); R00.2 Palpitations | CPT/HCPCS: 78452; 93016; 93018 ==

== ENCOUNTER 2024-08-25 13:48 | Outpatient (AMB) | payer OTHER, SELFPAY ==
--- NOTE | 2024-08-25 14:20 | MHC.OFFVIS ---
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: No Accompanied by: Self / Same As Patient Allergies metformin Adverse Reaction (Intermediate, Uncoded 06/28/24 14:55) Diarrhea Medication List - Last Reconciled 08/25/24 by Eduard Felix NP albuterol sulfate 2.5 mg (3 mL) inhalation Q4-6H PRN albuterol sulfate 90 mcg/actuation (Ventolin HFA) inhalation apixaban (Eliquis) 5 mg PO BID 90 days budesonide 180 mcg/actuation (Pulmicort Flexhaler) 1 inh inhalation BID 30 days glyburide 2.5 mg PO DAILY 60 days hydrochlorothiazide 50 mg PO DAILY 90 days levalbuterol HCl mg inhalation levothyroxine mcg PO DAILY losartan 50 mg PO DAILY metoprolol succinate ER 50 mg PO DAILY 90 days prednisone 10 mg PO DIRECTED 9 days HPI Comments Details: This is a 49-year-old female patient coming in for a follow-up visit. Patient with history of hypertension, diabetes, and morbid obesity. Patient was recently diagnosed with AFib in the emergency room following this patient was seen in the office at which time patient had reported some chest tightness and shortness of breath. Patient subsequently underwent a myocardial perfusion study, Holter study, and home sleep study. Today patient reports that she has been doing well overall denies any cardiac symptoms of exertional chest pain, shortness of breath, palpitations, dizziness, orthopnea, PND, leg edema, presyncope or syncope. Patient states that she has been compliant with all her medications. PFSH Surgical History Hx of hernia repair Family History Maternal Grandmother Ovarian cancer CHF (congestive heart failure) Other ADHD FH: mental illness Substance abuse Social History Housing: House Alcohol intake: current Alcohol intake frequency: 3 or more drinks per day Alcohol type: hard liquor Patient Tobacco Use Status: Former Tobacco user e-Cigarette/Vaping Use: Never Used Second Hand Smoke Exposure: No service: No Current occupational status: employed Current occupation: [employer] - [place] Current occupational exposures/hazards: Yes Cognitive needs: No Hearing needs: No Vision needs: No Review of Systems Const Denies chills, Denies fatigue, Denies fever(s), Denies frequent falls, Denies weakness, Denies weight gain and Denies weight loss ENT Denies dizziness Card Denies chest pain, Denies leg edema, Denies lightheadedness, Denies palpitations, Denies dyspnea and Denies dyspnea on exertion Resp Denies cough, Denies dyspnea and Denies dyspnea on exertion GI Denies hematochezia Musc Denies abnormal gait, Denies muscle weakness, Denies numbness, Denies radiating pain into limb and Denies tingling Neuro Denies abnormal gait, Denies dizziness, Denies frequent falls, Denies numbness, Denies tingling and Denies weakness Endo Denies fatigue and Denies palpitations Physical Exam Vital Signs: Last Vital Signs Pulse 85 08/25/24 14:21 BP 110/64 08/25/24 14:21 BMI result Body Mass Index 59.5 Const General: cooperative, healthy appearing, comfortable and no acute distress Orientation/consciousness: patient oriented x3 HEENT Head: Yes normal to inspection Neck Neck: Yes normal visual inspection, Yes trachea midline and Yes supple Chest Chest palpation & inspection: normal inspection of the chest Resp Effort & Inspection: normal respiratory effort Auscultation: clear to auscultation bilaterally, no crackles, no rales, no rhonchi and no wheezes Cardio Jugular venous distension: no JVD Palpation: normal PMI Rate: regular rate Rhythm: regular rhythm Heart sounds: S1 normal heart sound present, S2 normal heart sound present, no click, no gallops, no murmurs and no rubs Peripheral pulses: Peripheral pulses 2+ throughout GI Inspection: Yes normal to inspection Palpation (GI): Soft to palpation Auscultation: normal bowel sounds Skin General skin exam: no rashes or lesions noted Neuro General: patient oriented x3 Extrem General: Yes normal to inspection, No no pedal edema and No calf tenderness Psych Appearance: grossly normal Mental Status: mental status grossly normal Speech and movement: Normal speech and movement present Assessment & Plan Assessment & Plan (1) Paroxysmal atrial fibrillation: Code(s): I48.0 - Paroxysmal atrial fibrillation Category: Medical Plan: 06/28/2024-Holter study showed normal sinus rhythm with an average heart rate of 88 beats per minute, rare supraventricular and ventricular ectopies. 08/16/2024-patient underwent vasodilating myocardial perfusion study which showed normal perfusion. Kevin Vasc risk score of 3 therefore continue with Eliquis for full anticoagulation therapy. Continue metoprolol for rate control approach. No reported signs of bleeding. Patient was severe sleep apnea on the recent sleep study therefore we will put in an urgent referral for pulmonology for TIERRA management. (2) TIERRA (obstructive sleep apnea): Code(s): G47.33 - Obstructive sleep apnea (adult) (pediatric) Category: Medical Plan: As above. (3) HTN (hypertension): Code(s): I10 - Essential (primary) hypertension Category: Medical Qualifiers: Hypertension type: primary hypertension Qualified Code(s): I10 - Essential (primary) hypertension Plan: Blood pressure is well-controlled. Continue current regimen. Advised monitoring blood pressures at home with a goal of less than 130/80. 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 Continue aggressive diabetes management with an A1c goal less than 7 %. Patient states her cholesterol levels has been stable however, no records of this. Patient has upcoming lipid profile with PCP. Understands that patient's LDL goal should be less than 70. (5) Class 3 obesity: Code(s): E66.813 - Obesity, class 3 Category: Medical Plan: Patient's Mounjaro was denied by insurance. Patient will work with PCP for weight management program. Advised heart healthy diet, regular exercise, losing weight, medication adherence, and aggressive management of vascular risk factors. Follow up in 6 months, sooner if needed. In the interim, patient will call the office with any concerns or change in symptoms. This note was generated using voice recognition software. While every effort has been made to ensure accuracy and proper room service associate, there may be occasional errors that could affect the content or meaning of the described symptoms. Orders: Referrals Pulmonology Referral G47.33 - Obstructive sleep apnea (adult) (pediatric) Medications: Refilled metoprolol succinate ER 50 mg PO DAILY 90 tabs 3RF 90 days apixaban (Eliquis) 5 mg PO BID 180 tabs 3RF 90 days Discontinued tirzepatide (Mounjaro) for 4 weeks Discontinued Reason: Patient no longer taking 2.5 mg (0.5 mL) subcut QWEEK 4 weeks 2 mL 1RF E11.65 - Type 2 diabetes mellitus with hyperglycemia Coding Level of Care Code Est Pt Level 4 (38986) Complex EM visit Add On G2211 Diagnoses Paroxysmal atrial fibrillation I48.0 TIERRA (obstructive sleep apnea) G47.33 Primary hypertension I10 Hypertension type: primary hypertension Type 2 diabetes mellitus with hyperglycemia, without long-term current use of insulin E11.65 Diabetes 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
[2024-08-25 14:21] VITALS: BP 110/64; PULSE 85; BMI 59.5
== END 2024-08-25 14:51 | disposition home or self-care (01) ==
PROVIDERS: PCP Physician Assistant
DX: I48.0 Paroxysmal atrial fibrillation (principal); G47.33 Obstructive sleep apnea (adult) (pediatric); I10 Essential (primary) hypertension; E11.65 Type 2 diabetes mellitus with hyperglycemia; E66.813 Obesity, class 3
CPT/HCPCS: 99214; G2211

== ENCOUNTER → 2024-08-25 13:48 | Outpatient (BNVA) | payer OTHER, SELFPAY | PROVIDERS: PCP Physician Assistant | DX: I48.0 Paroxysmal atrial fibrillation (principal); I10 Essential (primary) hypertension; E11.65 Type 2 diabetes mellitus with hyperglycemia; G47.33 Obstructive sleep apnea (adult) (pediatric); E66.813 Obesity, class 3; Z68.43 Body mass index [BMI] 50.0-59.9, adult | CPT/HCPCS: 99212 ==

== ENCOUNTER 2024-09-02 15:13 | Outpatient (AMB) | payer OTHER, SELFPAY ==
--- NOTE | 2024-09-02 15:16 | MHC.OFFVIS ---
Vital Signs 09/02/24 15:18 Height 5 ft 2 in Weight 328 lb 4 oz BMI 60.0 BP 142/68 H Blood Pressure Location Lt radial Position Sitting Pulse 87 Pulse Source Pulse Oximeter Pulse Oximetry (%) 97 Oxygen Delivery Method Room Air Intake Visit Reasons: Obstructive sleep apnea Allergies metformin Adverse Reaction (Intermediate, Uncoded 09/02/24 15:20) Diarrhea HPI HPI Obstructive sleep apnea: Details: Felicita is a pleasant 49 year old female, former smoker, with underlying atrial fibrillation, asthma, HTN and DMII. She was referred by cardiology after recent sleep study revealed moderately severe TIERRA with moderate nocturnal hypoxemia. She reports ongoing daytime fatigue, nonrestorative sleep and loud snoring. She denies prior dx of TIERRA. At this time, her asthma is well controlled on current regimen, managed by PCP. PFSH Surgical History Hx of hernia repair Family History Maternal Grandmother Ovarian cancer CHF (congestive heart failure) Other ADHD FH: mental illness Substance abuse Social History Housing: House Alcohol intake: current Alcohol intake frequency: 3 or more drinks per day Alcohol type: hard liquor Patient Tobacco Use Status: Former Tobacco user e-Cigarette/Vaping Use: Never Used Second Hand Smoke Exposure: No service: No Current occupational status: employed Current occupation: [employer] [place] Current occupational exposures/hazards: Yes Cognitive needs: No Hearing needs: No Vision needs: No Review of Systems Const Denies chills, Denies excessive sweating, Denies fever(s), Denies headache(s) and Denies night sweats Eyes Denies dry eyes, Denies irritation and Denies itchy eyes ENT Reports Normal hearing present, Denies headache(s), Denies nasal congestion, Denies nasal discharge, Denies post nasal drip and Denies sore throat Card Denies chest pain, Denies chest pain at rest, Denies chest pain with activity, Denies claudication, Denies leg edema, Denies dyspnea, Denies dyspnea on exertion, Denies orthopnea and Denies paroxysmal nocturnal dyspnea Resp Denies chest congestion, Denies cough, Denies excessive phlegm production, Denies pain on inspiration, Denies pain with cough, Denies dyspnea, Denies dyspnea on exertion, Denies stridor and Denies wheezing Musc Denies myalgias Neuro Reports Normal hearing present and Denies headache(s) Endo Denies excessive sweating Kendall/Lymph Denies lymphadenopathy Aller/Immun Denies itchy eyes, Denies seasonal rhinorrhea and Denies wheezing Physical Exam Vital Signs: Last Vital Signs Pulse 87 09/02/24 15:18 BP 142/68 H 09/02/24 15:18 Pulse Ox 97 09/02/24 15:18 Oxygen Delivery Method Room Air 09/02/24 15:18 BMI result Body Mass Index 60.0 Const General: cooperative, healthy appearing, comfortable, no acute distress, well developed and alert Nutritional Appearance: obese Orientation/consciousness: patient oriented x3 Limitations: no limitations HEENT Head: Yes normal to inspection, Yes normocephalic and Yes atraumatic Ears: hearing grossly normal bilaterally and external ears normal Eyes General: appearance normal, both eyes and all related structures Eyelids: Yes eyelids normal Sclerae: sclerae normal EOM: EOMs intact bilaterally Neck Neck: Yes normal visual inspection and Yes no lymphadenopathy Lymphatic: no lymphadenopathy noted Chest Chest palpation & inspection: normal inspection of the chest Resp Effort & Inspection: normal respiratory effort, able to speak in complete sentences, no audible wheezes, no cough, no stridor, not tachypneic, no tripod positioning and no use of accessory muscles Auscultation: clear to auscultation bilaterally Cardio Jugular venous distension: no JVD Rate: regular rate Rhythm: regular rhythm Skin Other: warm, dry General skin exam: no rashes or lesions noted Neuro General: patient oriented x3 Cranial nerves: Yes Normal hearing present Cognition (Neuro): normal cognition Gait exam (Neuro): Normal gait present Extrem General: Yes normal to inspection, Yes capillary refill normal, Yes no clubbing, cyanosis or edema and Yes no pedal edema Psych Appearance: grossly normal and well kempt Speech and movement: Normal speech and movement present and Clear speech present Affect: normal affect Attitude: cooperative Thought process: Normal thought process present Thought content: Normal thought content present Insight: Good insight present (Psych) Judgement: Good judgement present (Psych) Assessment & Plan Assessment & Plan (1) TIERRA (obstructive sleep apnea): Code(s): G47.33 - Obstructive sleep apnea (adult) (pediatric) Category: Medical (2) Nocturnal hypoxemia: Code(s): G47.34 - Idiopathic sleep related nonobstructive alveolar hypoventilation Category: Medical (3) Morbid obesity with BMI of 60.0-69.9, adult: Code(s): E66.01 - Morbid (severe) obesity due to excess calories; Z68.44 - Body mass index [BMI] 60.0-69.9, adult Category: Medical Plan Reviewed sleep study results with patient which revealed an AHI of 23.4, with an average oxygen saturation of 89%, lowest 57%, <88% for 139 minutes. Given the severity, combined with persistent nocturnal hypoxemia, an in lab titration study is recommended with monitoring of ETCO2. Will enter. All questions were answered and patient is in agreement of plan. Will follow up to review reults or sooner if needed Orders: Orders RT PSG in-lab sleep titration Today G47.33 - Obstructive sleep apnea (adult) (pediatric), G47.34 - Idiopathic sleep related nonobstructive alveolar hypoventilation Coding Level of Care Code New Pt Level 3 (07490) Diagnoses TIERRA (obstructive sleep apnea) G47.33 Nocturnal hypoxemia G47.34 Morbid obesity with BMI of 60.0-69.9, adult E66.01; Z68.44
[2024-09-02 15:18] VITALS: BP 142/68; PULSE 87; O2SAT 97; BMI 60.0
== END 2024-09-02 15:46 | disposition home or self-care (01) ==
LOC: HO.HPSW 15:14
PROVIDERS: PCP Physician Assistant; Visit Provider Nurse Practitioner Family
DX: G47.33 Obstructive sleep apnea (adult) (pediatric) (principal); G47.34 Idiopathic sleep related nonobstructive alveolar hypoventilation; E66.01 Morbid (severe) obesity due to excess calories; Z68.44 Body mass index [BMI] 60.0-69.9, adult
CPT/HCPCS: 99203

== ENCOUNTER → 2024-09-02 15:13 | Outpatient (BNVA) | payer OTHER, SELFPAY | PROVIDERS: PCP Physician Assistant; Visit Provider Nurse Practitioner Family | DX: G47.33 Obstructive sleep apnea (adult) (pediatric) (principal); G47.34 Idiopathic sleep related nonobstructive alveolar hypoventilation; E66.01 Morbid (severe) obesity due to excess calories; Z68.44 Body mass index [BMI] 60.0-69.9, adult | CPT/HCPCS: 99202 ==

== ENCOUNTER 2024-09-27 09:55 | Outpatient (REF) | payer OTHER, SELFPAY ==
--- OUTSIDE RECORDS SUMMARY | 2024-09-27 10:45 | XMS_ITS | Encounter Summary ---
Author Organization [facility] Address [address] [facility] [address] [place] [phone] Phone Care Team Providers Care Ekg Monitor Name Role Phone Markus Murphy MD Primary Care Provider + Encounter Details Date Type Department Care Team (Late st Contact Info) Description 12/21/2020 Procedure Pass [place] Admitting Dept - Virtual Department [address] [place] [id number] Social History Tobacco Use Types Packs/Day Years Used Date Smoking Tobacco: Former Cigarettes Q uit: 05/27/2019 Smokeless Tobacco: Never Alcohol Use Standard Drinks/Week Comments Yes 1 (1 standard drink = 0.6 oz pur e alcohol) Comments No Sex and Gender Information Value Date Recorded Sex Assigned at Not on file Legal Sex Female 11:26 AM EDT Gender Identity Not on file Sexual Orientation Not on file documented as of this encounter Plan of Treatment Not on file documented as of this encounter Visit Diagnoses Not on filedocumented in this encounter Care Teams Ekg Monitor Relationship Specialty Start Date End Date Markus Murphy MD [address] [place] [id number] PCP - General Family Medicine 08/01/20 documented as of this encounter Additional Source Comments The information contained in this document represents components of the legal health record. It is not the complete legal health record.[facility]
[2024-09-27 13:59] LABS: Hemoglobin A1C 161.4349 umol/L; Total Hemoglobin (HGBA1C) 3675.2053 umol/L
[2024-09-27 14:28] LABS: Cholesterol 233 mg/dL (<200); HDL Cholesterol 84 mg/dL (>40); Triglycerides 173 mg/dL (<150)
[2024-09-27 14:32] LABS: Microalbum/Creatinine Ratio Ur 14.2 ug/mg cr (<30)
== END 2024-09-27 09:56 | disposition home or self-care (01) ==
LOC: HO.HMGCLDS 09:55
PROVIDERS: PCP Physician Assistant; Visit Provider Physician Assistant
DX: E11.65 Type 2 diabetes mellitus with hyperglycemia (principal)
CPT/HCPCS: 36415; 80061; 82043; 82570; 83036

== ENCOUNTER → 2024-09-29 20:30 | Outpatient (REF) | payer OTHER, SELFPAY | LOC: HO.SL 20:30 | PROVIDERS: PCP Physician Assistant; Visit Provider Nurse Practitioner Family | DX: G47.33 Obstructive sleep apnea (adult) (pediatric) (principal); G47.34 Idiopathic sleep related nonobstructive alveolar hypoventilation | CPT/HCPCS: 95811 ==

== ENCOUNTER → 2024-09-29 21:01 | Outpatient (BNV) | payer OTHER, SELFPAY | PROVIDERS: PCP Physician Assistant; Visit Provider Internal Medicine | DX: G47.33 Obstructive sleep apnea (adult) (pediatric) (principal); R06.83 Snoring | CPT/HCPCS: 95811 ==

== ENCOUNTER 2024-10-04 11:22 | Outpatient (AMB) | payer OTHER, SELFPAY ==
--- OUTSIDE RECORDS SUMMARY | 2024-09-30 23:59 | XMS_ITS | Continuity of Care Document ---
Author Organization [facility] Address [address] [place] [address]- Care Team Providers Care Personal Banker Name Role Phone Not on Staff, PCP Primary Care Physician Unavail able Encounter [facility] [place](s): 08/31/24 - 09/30/24 [facility] Adult [address] [place] [address]- Attending Physician: AdmFelipe moreira Admitting Physician: AdmtrFelipe Referring Physician: Admtr [id number] Encounter Type: Triage Allergies, Adverse Reactions, Alerts Substance Criticality Severity Reaction Reaction Severity Status Pollen nasal congestion Act jose Immunizations Given and Recorded Vaccine Date Status Refusal Reason influenza virus vaccine, inactivated 1 12/01/22 Gi irina influenza virus vaccine, inactivated 12/27/21 Beau rded influenza virus vaccine, inactivated 02/07/21 Give n influenza virus vaccine, inactivated 11/20/19 Beau rded influenza virus vaccine, inactivated 12/16/17 Beau rded influenza virus vaccine, inactivated 2 12/18/16 Re corded influenza virus vaccine, inactivated 3 12/13/15 Re corded pneumococcal 20-valent conjugate vaccine 4 05/29/22 Given [id number] 12y+ bivalent booster vax 02/05/22 Given SARS-CoV-2 (COVID-19) mRNA BNT-162b2 vac 03/18/20 Recorded SARS-CoV-2 (COVID-19) mRNA BNT-162b2 vac 02/26/20 Recorded Influenza Virus Vaccine (oldterm) 12/14/18 Recorde d pneumococcal 23-valent vaccine 5 02/25/17 Given tetanus/diphtheria/pertussis, acel(Tdap) 6 12/20/15 Recorded tetanus/diphtheria/pertussis, acel(Tdap) 12/13/15 Recorded 1Result Comment: [id number] 2Location History: [facility] EMPLOYER 3Location History: [facility] pharmacy 4Result Comment: [id number] 5Result Comment: [02/25/2017] [facility] [id number] 6Location History: [facility] Medications Albuterol (Eqv-ProAir HFA) 90 mcg/inh inhalation aerosol 2 puffs, Inhalation, 4 times a day, PRN NEEDED FOR WHEEZING FOR SHORTNESS OF BREATH, # 8.5 Gm, 3Refills, Maintenance, 10/03/23 7:23:00 AM EDT, [facility] #[id number], 2 puffs Inhalation 4 times a day,PRN: NEEDED FOR WHEEZING FOR SHORTNESS OF BREATH, 158, cm, 08/27/23 13:22:00 EDT, Height,145.5, kg, 02/04/23 15:11:00 EST, Dry Weight Start Date: 10/03/23 Status: Ordered Quantity: 8.5 Unit: g Repeat number: 4 celecoxib 200 mg oral capsule 1 capsule = 200 mg, By Mouth, Daily, PRN Pain , Moderate, TAKE 1 CAPSULE BY MOUTH ONCE DAILY, # 90 capsule, 3 Refills, Maintenance, 10/03/23 7:21:00 AM EDT, Capsule, [facility] #[id number], Partial fill upon patient request if the prescription is for a schedule II opioid drug., 158, cm, 08/27/23 13:22:00 EDT, Height, 145.5, kg, 02/04/23 15:11:00 EST, Dry Weight Start Date: 10/03/23 Status: Ordered Quantity: 90.0 Unit: capsule Repeat number: 4 hydrochlorothiazide 50 mg oral tablet 50 mg, 1, tablet, By Mouth, Daily, # 90 tablet, Refills 3, Tot. Refills 3, Maintenance, 10/03/23 7:22:00 AM EDT, Route to Pharmacy Electronically, [facility] #[id number], Partial fill upon patient request if the prescription is for a schedule II opioid drug., 158, cm, 08/27/23 13:22:00 EDT, Height, 145.5, kg, 02/04/23 15:11:00 EST, Dry Weight Start Date: 10/03/23 Status: Ordered Quantity: 90.0 Unit: tablet Repeat number: 4 levothyroxine 75 mcg (0.075 mg) oral tablet 1 tablet, By Mouth, Daily, # 90 tablet, 3 Refills, Maintenance, 10/03/23 7:22:00 AM EDT, [facility] #[id number], 158, cm, 08/27/23 13:22:00 EDT, Height, 145.5, kg, 02/04/23 15:11:00 EST, Dry Weight Start Date: 10/03/23 Status: Ordered Quantity: 90.0 Unit: tablet Repeat number: 4 losartan 50 mg oral tablet 1 tablet, By Mouth, Daily, # 90 tablet, 3 Refills, Maintenance, 10/03/23 7:22:00 AM EDT, [facility] #[id number], 158, cm, 08/27/23 13:22:00 EDT, Height, 145.5, kg, 02/04/23 15:11:00 EST, Dry Weight Start Date: 10/03/23 Status: Ordered Quantity: 90.0 Unit: tablet Repeat number: 4 Ozempic 8 mg/3 mL (2 mg dose) subcutaneous solution = 2 mg, Subcutaneous Injection, Every week, in the abdomen, thigh, or upper arm, # 6 mL, 3 Refills,Maintenance, 10/03/23 7:22:00 AM EDT, Solution, [facility] #[id number], Partial fill upon patient request if the prescription is for a schedule II opioid drug., 158, cm, 08/27/23 13:22:00 EDT, Height, 145.5, kg, 02/04/23 15:11:00 EST, Dry Weight Start Date: 10/03/23 Status: Ordered Quantity: 6.0 Unit: mL Repeat number: 4 Pulmicort Flexhaler 180 mcg 1 puffs, Inhalation, 2 times a day, # 1 each, 5 Refills, Maintenance, 10/03/23 7:23:00 AM EDT, [facility] #[id number], 60, 1 puffs Inhalation 2 times a day, 158, cm, 08/27/23 13:22:00 EDT, Height, 145.5, kg, 02/04/23 15:11:00 EST, Dry Weight Start Date: 10/03/23 Status: Ordered Quantity: 1.0 Unit: each Repeat number: 6 Problem List Condition Confirmation Course Effective Dates Status Health Status Informant Asthma Confirmed Active Essential hypertension Confirmed Active Hypercholesterolemia Confirmed Active Hypothyroidism Confirmed Active Morbid obesity Confirmed Active Rib pain on left side Confirmed Active Severe obesity Confirmed Active Type II diabetes mellitus Confirmed Active Umbilical hernia Confirmed Active Social History Social History Type Response Smoking Status Former smoker, quit more than 30 days ago; Other: Quit 05/26/19; entered on: 04/10/20 Sex Female Sex Representation Female (finding) Implantable Device List Procedure Provider Procedure Date Device Type Site Repair Hernia Umbilical Laparoscopic [place] RAMOS, [facility] 06/06/20 Unknown Umbilicus Device Identifier Serial Number Lot or Batch Number Manufacturing Date Expiration Date Distinct Identification Code MRI Safety Implantable Status Assigning Authority Unknown [id number] Unknown 12/04/21 Unknown Unknown Active Unknown Laboratory * Event Display: Non Lab Results Authored Date: Radiology * Event Display: X-Ray Chest, Non- Authored Date: Patient Care team information Care Team Personnel Name: Not on Staff, PCP Position: [facility] Physician (General Medicine) Member Role: PCP Care Team Related Persons Name: LOU PATEL Name: JERAD CARRERA Insurance Providers Guarantor name: BILLIE DEBI [facility] Information #: 1 Payer: [employer] [facility] Payer Identifier: [facility] Member Number: [id number] Group Number: [id number] Subscriber Identifier: [id number] Relationship to Subscriber: self Coverage Type: NA Coverage Verification Date: NA Telecom: AURA Address:
--- NOTE | 2024-10-04 11:39 | MHC.PC.OV ---
Vital Signs 10/04/24 11:40 Height 5 ft 2 in Weight 331 lb BMI 60.5 BP 126/68 Blood Pressure Location Lt brachial Position Sitting Pulse 92 Pulse Source Pulse Oximeter Temp 97.1 F Temp Source Temporal Artery Scan Pulse Oximetry (%) 97 Oxygen Delivery Method Room Air Intake Visit Reasons: f/u DMII Intake Note: Patient is here to follow up on DM. Crematory Operator Required: No Whizzer Operator: Not Required per policy Accompanied by: Self / Same As Patient Allergies metformin Adverse Reaction (Intermediate, Uncoded 10/04/24 12:08) Diarrhea Medication List - Last Reconciled 10/04/24 by Kian Hannon PA-C albuterol sulfate 90 mcg/actuation (Ventolin HFA) inhalation apixaban (Eliquis) 5 mg PO BID 90 days blood sugar diagnostic (FreeStyle Test strips) As directed blood-glucose meter (FreeStyle [place] kit) As directed budesonide 180 mcg/actuation (Pulmicort Flexhaler) 1 inh inhalation BID 30 days glyburide 2.5 mg PO DAILY 60 days hydrochlorothiazide 50 mg PO DAILY 90 days lancets (FreeStyle Lancets) As directed levalbuterol HCl mg inhalation levothyroxine mcg PO DAILY losartan 50 mg PO DAILY metoprolol succinate ER 50 mg PO DAILY 90 days fluofaks-etc-dmhy-FA-vit K-lut 8 mg iron-400 mcg-50 mcg (Centrum Silver Women) 1 tab PO DAILY Tobacco use date assessed: 10/04/24 Dental Screening Dental Screen Date: 03/29/24 HPI f/u DMII HPI Details Patient is a 49-year-old female here today for a follow-up visit. Patient has a past medical history significant for asthma, former smoker, AFIB, type 2 diabetes, obesity, hyperlipidemia, hypothyroidism and hypertension. .. Hypertension: Patient on losartan and hydrochlorothiazide with decent affect on her blood pressure . Today's blood pressure in office acceptable. .. .. Class 3 Obesity: Has unfortunately gained weight since last office visit. She does understand her BMI is over 55 and will try to work on better eating habits. She was on Ozempic previously which had helped him lose weight and control her blood sugars. .. Obstructive sleep apnea: Recent sleep study showing positive evidence of moderate to severe obstructive sleep apnea. Has followed up with a titration sleep study She is now followed by pulmonology in considering starting a CPAP machine at night .. Type 2 diabetes: Most recent A1c is 6.1 from 7.6., has stopped using metformin due to intolerable side effect of diarrhea. She continues on glyburide Previously tried to prescribe Ozempic though did not have insurance coverage. She has now failed oral metformin PLAN: Will try Mounjaro for both glycemic control on weight loss and up titrate per response. PFSH Surgical History Hx of hernia repair Family History Maternal Grandmother Ovarian cancer CHF (congestive heart failure) Other ADHD FH: mental illness Substance abuse Social History Housing: House Alcohol intake: current Alcohol intake frequency: 3 or more drinks per day Alcohol type: hard liquor Patient Tobacco Use Status: Former Tobacco user e-Cigarette/Vaping Use: Never Used Second Hand Smoke Exposure: Yes service: No Current occupational status: employed Current occupation: [employer] [place] Current occupational exposures/hazards: Yes Cognitive needs: No Hearing needs: No Vision needs: No Questionnaire PHQ-9 Over the last 2 weeks, how often have you been bothered by any of the following problems? 1. Little interest or pleasure in doing things: several days 2. Feeling down, depressed, or hopeless: not at all 3. Trouble falling or staying asleep, or sleeping too much: not at all 4. Feeling tired or having little energy: not at all 5. Poor appetite or overeating: not at all 6. Feeling bad about yourself - or that you are a failure or have let yourself or your family down: not at all 7. Trouble concentrating on things, such as reading the newspaper or watching television: not at all 8. Moving or speaking so slowly that other people could have noticed. Or the opposite - being so fidgety or restless that you have been moving around a lot more than usual: not at all 9. Thoughts that you would be better off or of hurting yourself in some way: not at all Total score: 1 Depression Screening Interpretation: Negative Depression Screening Done: Yes 93079 - PHQ-9 Billing: Yes Source: Developed by Drs. Sourav Rosa, Dangelo Mancera and colleagues, with an educational marissa from [employer]. Thrive Questionnaire Date Thrive assessed: 03/29/24 I am a: Patient What is your living situation today?: I have a steady place to live Within the past 12 months, did the food you bought not last and you didn't have the money to get more?: I choose not to answer this question Within the past 12 months, did you worry whether your food would run out before you got money to buy more?: I choose not to answer this question Do you have trouble paying for medicines?: I choose not to answer this question Do you have trouble getting transportation to medical appointments?: I choose not to answer this question Do you have trouble paying your heating and electricity bill?: I choose not to answer this question Do you have trouble taking care of your child, family member or friend?: I choose not to answer this question Do you have trouble with day-to-day activities such as bathing, preparing meals, shopping, managing finances, etc.?: I choose not to answer this question Are you currently unemployed and looking for a job?: I choose not to answer this question Are you interested in more education?: I choose not to answer this question Please select the resources that you would like help with: None Currently or been in a relationship where the following occur: I choose not to answer THRIVE Score: 0 AUDIT C Alcohol Use Questionnaire (AUDIT-C) 1. How often do you have a drink containing alcohol?: 4 or more times a week 2. How many drinks containing alcohol do you have on a typical day when you are drinking?: 1 or 2 Total Score: 4 SABA-7 AMB Questionnaire SABA-7 Date SABA - 7 assessed: 03/29/24 Source: Developed by Drs. Sourav Rosa, Dangelo Mancera and colleagues, with an educational marissa from [employer]. Review of Systems Const Denies headache(s) Eyes Denies loss of vision ENT Denies vertigo, Denies dizziness, Denies headache(s) and Denies sore throat Card Denies chest pain, Denies leg edema and Denies lightheadedness Resp Denies cough, Denies hemoptysis and Denies wheezing GI Denies abdominal pain, Denies melena, Denies constipation, Denies diarrhea and Denies vomiting Denies urinary frequency, Denies dysuria and Denies urinary urgency Musc Denies arthralgias, Denies joint swelling, Denies numbness and Denies tingling Neuro Denies Abnormal speech present, Denies behavioral changes, Denies vertigo, Denies dizziness, Denies headache(s), Denies loss of vision, Denies memory loss, Denies numbness and Denies tingling Psych Denies anxiety, Denies behavioral changes, Denies depression, Denies memory loss and Denies panic attacks Kendall/Lymph Denies easy bleeding and Denies easy bruising Aller/Immun Denies wheezing Physical exam (Primary Care) Vital Signs: Last Vital Signs Temp 97.1 F 10/04/24 11:40 Pulse 92 10/04/24 11:40 BP 126/68 10/04/24 11:40 Pulse Ox 97 10/04/24 11:40 Oxygen Delivery Method Room Air 10/04/24 11:40 BMI result Body Mass Index 60.5 BMI Assessment/Plan discussion: High BMI High, discussed plan: lifestyle, weight reduction, dietary and physical activity Tobacco/Smoking Status: Tobacco use Status Tobacco use date assessed 10/04/24 10/04/24 11:59 Patient Tobacco Use Status Former Tobacco user 10/04/24 11:59 e-Cigarette/Vaping Use Never Used 10/04/24 11:59 PHQ-9: PHQ-9 Score PHQ-9: Total score 1 10/04/24 12:04 Depression Screening Interpretation: Negative Thrive Assessment: Date of Thrive Assessment Date Thrive assessed 03/29/24 10/04/24 11:59 Currently or been in a relationship where the following occur: I choose not to answer Const General: healthy appearing, no acute distress, alert and awake Nutritional Appearance: well nourished Orientation/consciousness: oriented to person, oriented to place and oriented to time HENMT Ears: TM's normal bilaterally General nose exam: Normal nasal mucous membranes and turbinates present Eyes Conjunctivae: conjunctivae normal Sclerae: sclerae normal Pupils: Equal, round and reactive pupils present Neck Neck: Yes no lymphadenopathy and Yes no JVD Thyroid: Thyroid normal Carotids: no bruits Resp Effort & Inspection: normal respiratory effort and not tachypneic Auscultation: no crackles, no rales, no rhonchi and no wheezes Cardio Rate: regular rate Rhythm: regular rhythm Heart sounds: no murmurs and normal S1 and S2 GI Palpation (GI): Soft to palpation, nontender, no hepatomegaly and no splenomegaly Auscultation: normal bowel sounds Skin General skin exam: no rashes or lesions noted and dry skin Neuro General: oriented to person, oriented to place and oriented to time Cranial nerves: Yes Equal, round and reactive pupils present Speech: No Abnormal speech present Gait exam (Neuro): Normal gait present Motor exam (neuro): no tremor noted Extrem Right upper extremity: full ROM Left upper extremity: full ROM Right lower extremity: full ROM; no edema Left lower extremity: full ROM; no edema Psych Mental Status: mental status grossly normal Speech and movement: Normal speech and movement present Affect: normal affect Attitude: cooperative Thought process: Normal thought process present Coding Level of Care Code Est Pt Level 4 (79234) Diagnoses Mild persistent asthma without complication J45.30 Asthma complication type: uncomplicated Asthma persistence: persistent Asthma severity: mild Mixed hyperlipidemia E78.2 Hyperlipidemia type: mixed hyperlipidemia Type 2 diabetes mellitus with hyperglycemia, without long-term current use of insulin E11.65 Diabetes mellitus nursing home insulin use: without nursing home use Diabetes mellitus complication status: with hyperglycemia Paroxysmal atrial fibrillation I48.0 Primary hypertension I10 Hypertension type: primary hypertension TIERRA (obstructive sleep apnea) G47.33 Additional Codes PHQ-9 - 31377 - PHQ-9 Billing: Yes ([id number]) Assessment & Plan Assessment & Plan (1) Asthma: Code(s): J45.909 - Unspecified asthma, uncomplicated Category: Medical Qualifiers: Asthma complication type: uncomplicated Asthma persistence: persistent Asthma severity: mild Qualified Code(s): J45.30 - Mild persistent asthma, uncomplicated Plan: Patient reports her asthma is fairly well controlled with p.r.n. use of her Ventolin inhaler. She has not followed by pulmonology investigating her obstructive sleep apnea. Recent home sleep study showing moderate to severe obstructive sleep apnea (2) HLD (hyperlipidemia): Code(s): E78.5 - Hyperlipidemia, unspecified Category: Medical Qualifiers: Hyperlipidemia type: mixed hyperlipidemia Qualified Code(s): E78.2 - Mixed hyperlipidemia Plan: Patient's most recent lipid panel showing elevated total cholesterol and LDL for her CV risk. We did discuss starting statin therapy to reduce her LDL optimally below 70 due to her cardiovascular risk though she declines and will like to work more on her lifestyle and dietary changes (3) DMII (diabetes mellitus, type 2): Code(s): E11.9 - Type 2 diabetes mellitus without complications Category: Medical Qualifiers: Diabetes mellitus manager long term care insulin use: without nursing home use Diabetes mellitus complication status: with hyperglycemia Qualified Code(s): E11.65 - Type 2 diabetes mellitus with hyperglycemia Plan: Patient was not able to tolerate metformin due to intolerable diarrhea. She has been transitioned to glyburide which has helped reduce her A1c to 6.1. Will try monitor for glycemic control and weight loss. Goal A1c is to remain below 7.0 (4) Paroxysmal atrial fibrillation: Code(s): I48.0 - Paroxysmal atrial fibrillation Category: Medical Plan: Patient now rate controlled with metoprolol and anticoagulated with Eliquis. She has followed up with Cardiology will be sent for sleep study and Holter monitor. She has reduced her alcohol consumption She will continue cardiology workup. Currently has a Holter monitor for further evaluation (5) HTN (hypertension): Code(s): I10 - Essential (primary) hypertension Category: Medical Qualifiers: Hypertension type: primary hypertension Qualified Code(s): I10 - Essential (primary) hypertension Plan: Patient's blood pressure acceptable today in office. She continues on losartan hydrochlorothiazide with decent blood pressure control. She is now also on metoprolol. She is a former smoker quit in 2020. Goal blood pressures to remain below 140/90 (6) TIERRA (obstructive sleep apnea): Code(s): G47.33 - Obstructive sleep apnea (adult) (pediatric) Category: Medical Plan: Patient followed by pulmonology here in [place] .Patient has moderate to severe obstructive sleep apnea with nocturnal hypoxemia. She is soon to start CPAP therapy at night. Orders: Orders Comprehensive [place]. Panel Fast Today E11.65 - Type 2 diabetes mellitus with hyperglycemia Complete Blood Count no Diff Today J45.30 - Mild persistent asthma, uncomplicated TSH reflex Free T4 Today E03.9 - Hypothyroidism, unspecified Lipid Panel Today E78.5 - Hyperlipidemia, unspecified Medications: New lancets (FreeStyle Lancets) As directed 100 ea 3RF E11.65 - Type 2 diabetes mellitus with hyperglycemia, E11.9 - Type 2 diabetes mellitus without complications blood sugar diagnostic (FreeStyle Test strips) As directed 100 ea 1RF E11.65 - Type 2 diabetes mellitus with hyperglycemia tirzepatide (Mounjaro) for 4 weeks 2.5 mg (0.5 mL) subcut QWEEK 2 mL 1RF 4 weeks E11.65 - Type 2 diabetes mellitus with hyperglycemia, G47.33 - Obstructive sleep apnea (adult) (pediatric) blood-glucose meter (FreeStyle [place] kit) As directed 1 ea 0RF E11.65 - Type 2 diabetes mellitus with hyperglycemia tirzepatide (Mounjaro) for 4 weeks 2.5 mg (0.5 mL) subcut QWEEK 4 weeks 2 mL 1RF E11.65 - Type 2 diabetes mellitus with hyperglycemia, G47.33 - Obstructive sleep apnea (adult) (pediatric) Changed From losartan 50 mg PO DAILY I10 - Essential (primary) hypertension To losartan 50 mg PO DAILY 90 tabs 1RF 90 days I10 - Essential (primary) hypertension From albuterol sulfate 90 mcg/actuation (Ventolin HFA) inhalation J45.30 - Mild persistent asthma, uncomplicated To albuterol sulfate 90 mcg/actuation (Ventolin HFA) 1 puff inhalation Q6H 8.5 grams 3RF 30 days J45.30 - Mild persistent asthma, uncomplicated Refilled glyburide 2.5 mg PO DAILY 60 tabs 1RF 60 days E11.65 - Type 2 diabetes mellitus with hyperglycemia hydrochlorothiazide 50 mg PO DAILY 90 tabs 1RF 90 days I10 - Essential (primary) hypertension
[2024-10-04 11:40] VITALS: BP 126/68; PULSE 92; TEMP 36.2; O2SAT 97; BMI 60.5
--- OUTSIDE RECORDS SUMMARY | 2024-10-04 12:33 | XMS_ITS | Encounter Summary ---
Author Organization [facility] Address [address] [facility] [address] [place] [phone] Phone Care Team Providers Care Glass Sagger Name Role Phone Markus Murphy MD Primary Care Provider + Encounter Details Date Type Department Care Team (Late st Contact Info) Description 12/21/2020 Procedure Pass OR Admitting Dept - Virtual Department [address] [place] [phone] Social History Tobacco Use Types Packs/Day Years [...] on filedocumented in this encounter Care Teams Glass Sagger Relationship Specialty Start Date End Date Maruks Murphy MD [address] [place] [phone] PCP - General Family Medicine 08/01/20 documented as of this encounter Additional Source Comments The information contained in this document represents components of the legal health record. It is not the complete legal health record.[facility]
== END 2024-10-04 12:24 | disposition home or self-care (01) ==
LOC: HO.HMCH 11:22
PROVIDERS: PCP Physician Assistant; Visit Provider Physician Assistant
DX: J45.30 Mild persistent asthma, uncomplicated (principal); E78.2 Mixed hyperlipidemia; E11.65 Type 2 diabetes mellitus with hyperglycemia; I48.0 Paroxysmal atrial fibrillation; I10 Essential (primary) hypertension; G47.33 Obstructive sleep apnea (adult) (pediatric)

== ENCOUNTER → 2024-10-04 11:22 | Outpatient (BNVA) | payer OTHER, SELFPAY | PROVIDERS: PCP Physician Assistant; Visit Provider Physician Assistant | DX: J45.30 Mild persistent asthma, uncomplicated (principal); E78.2 Mixed hyperlipidemia; E11.65 Type 2 diabetes mellitus with hyperglycemia; I48.0 Paroxysmal atrial fibrillation; I10 Essential (primary) hypertension; G47.33 Obstructive sleep apnea (adult) (pediatric); Z79.01 Long term (current) use of anticoagulants; Z79.899 Other long term (current) drug therapy; Z13.31 Encounter for screening for depression | CPT/HCPCS: 96127; 99212 ==

== ENCOUNTER 2024-10-25 14:10 | Outpatient (AMB) | payer OTHER, SELFPAY ==
--- NOTE | 2024-10-25 14:17 | A.OFFVIS_ITS ---
Vital Signs 10/25/24 14:18 Height 5 ft 2 in Weight 332 lb 4 oz BMI 60.8 BP 106/64 Blood Pressure Location Rt brachial Position Sitting Pulse 84 Pulse Source Pulse Oximeter Pulse Oximetry (%) 96 Oxygen Delivery Method Room Air Intake Visit Reasons: Obstructive sleep apnea Allergies metformin Adverse Reaction (Intermediate, Uncoded 10/25/24 14:20) Diarrhea HPI HPI Obstructive sleep apnea: Details: Felicita is a pleasant 49 year old female, former smoker, with underlying atrial fibrillation, asthma, HTN and DMII. She was initially referred by cardiology after recent home sleep study revealed moderately severe TIERRA with moderate nocturnal hypoxemia. She was then sent for in lab titration study to ensure optimal pressures. Today she presents to review results. At this time, her asthma is well controlled on current regimen, managed by PCP. PFSH Surgical History Hx of hernia repair Family History Maternal Grandmother Ovarian cancer CHF (congestive heart failure) Other ADHD FH: mental illness Substance abuse Social History Housing: House Alcohol intake: current Alcohol intake frequency: 3 or more drinks per day Alcohol type: hard liquor Patient Tobacco Use Status: Former Tobacco user e-Cigarette/Vaping Use: Never Used Second Hand Smoke Exposure: Yes service: No Current occupational status: employed Current occupation: [employer] [place] Current occupational exposures/hazards: Yes Cognitive needs: No Hearing needs: No Vision needs: No Review of Systems Const Denies chills, Denies excessive sweating, Denies fever(s), Denies headache(s) and Denies night sweats Eyes Denies dry eyes, Denies irritation and Denies itchy eyes ENT Reports Normal hearing present, Denies headache(s), Denies nasal congestion, Denies nasal discharge, Denies post nasal drip and Denies sore throat Card Denies chest pain, Denies chest pain at rest, Denies chest pain with activity, Denies claudication, Denies leg edema, Denies dyspnea, Denies dyspnea on exertion, Denies orthopnea and Denies paroxysmal nocturnal dyspnea Resp Denies chest congestion, Denies cough, Denies excessive phlegm production, Denies pain on inspiration, Denies pain with cough, Denies dyspnea, Denies dyspnea on exertion, Denies stridor and Denies wheezing Musc Denies myalgias Neuro Reports Normal hearing present and Denies headache(s) Endo Denies excessive sweating Kendall/Lymph Denies lymphadenopathy Aller/Immun Denies itchy eyes, Denies seasonal rhinorrhea and Denies wheezing Physical Exam Vital Signs: Last Vital Signs Pulse 84 10/25/24 14:18 BP 106/64 10/25/24 14:18 Pulse Ox 96 10/25/24 14:18 Oxygen Delivery Method Room Air 10/25/24 14:18 BMI result Body Mass Index 60.8 Const General: cooperative, healthy appearing, comfortable, no acute distress, well developed and alert Nutritional Appearance: obese Orientation/consciousness: patient oriented x3 Limitations: no limitations HEENT Head: Yes normal to inspection, Yes normocephalic and Yes atraumatic Ears: hearing grossly normal bilaterally and external ears normal Eyes General: appearance normal, both eyes and all related structures Eyelids: Yes eyelids normal Sclerae: sclerae normal EOM: EOMs intact bilaterally Neck Neck: Yes normal visual inspection and Yes no lymphadenopathy Lymphatic: no lymphadenopathy noted Chest Chest palpation & inspection: normal inspection of the chest Resp Effort & Inspection: normal respiratory effort, able to speak in complete sentences, no audible wheezes, no cough, no stridor, not tachypneic, no tripod positioning and no use of accessory muscles Auscultation: clear to auscultation bilaterally Cardio Jugular venous distension: no JVD Rate: regular rate Rhythm: regular rhythm Skin Other: warm, dry General skin exam: no rashes or lesions noted Neuro General: patient oriented x3 Cranial nerves: Yes Normal hearing present Cognition (Neuro): normal cognition Gait exam (Neuro): Normal gait present Extrem General: Yes normal to inspection, Yes capillary refill normal, Yes no clubbing, cyanosis or edema and Yes no pedal edema Psych Appearance: grossly normal and well kempt Speech and movement: Normal speech and movement present and Clear speech present Affect: normal affect Attitude: cooperative Thought process: Normal thought process present Thought content: Normal thought content present Insight: Good insight present (Psych) Judgement: Good judgement present (Psych) Assessment & Plan Assessment & Plan (1) TIERRA (obstructive sleep apnea): Code(s): G47.33 - Obstructive sleep apnea (adult) (pediatric) Category: Medical (2) Nocturnal hypoxemia: Code(s): G47.34 - Idiopathic sleep related nonobstructive alveolar hypoventilation Category: Medical (3) Morbid obesity with BMI of 60.0-69.9, adult: Code(s): E66.01 - Morbid (severe) obesity due to excess calories; Z68.44 - Body mass index [BMI] 60.0-69.9, adult Category: Medical Plan Prior home sleep study results revealed an AHI of 23.4, with an average oxygen saturation of 89%, lowest 57%, <88% for 139 minutes. Reviewed in lab titration sleep study results which revealed resolution of obstructive events, hypoxia as well as snoring with the use of BiPAP with pressures of 16/12. Will send prescription. She is aware if there are any issues with the mask or machine, she will call the [employer] company/office. Once established on BiPAP therapy, will send for overnight oximetry to ensure resolution of nocturnal hypoxemia with BiPAP use. All questions were answered and patient is in agreement of plan. Will follow up in 10-12 weeks. All questions were answered and patient is in agreement of plan. Coding Level of Care Code Est Pt Level 4 (65741) Diagnoses TIERRA (obstructive sleep apnea) G47.33 Nocturnal hypoxemia G47.34 Morbid obesity with BMI of 60.0-69.9, adult E66.01; Z68.44
[2024-10-25 14:18] VITALS: BP 106/64; PULSE 84; O2SAT 96; BMI 60.8
--- OUTSIDE RECORDS SUMMARY | 2024-10-25 15:33 | XMS_ITS | Encounter Summary ---
Author Organization [facility] Address [address] [facility] [address] [place] [phone] Phone Care Team Providers Care Proj Engineer Name Role Phone Markus Murphy MD Primary Care Provider + Encounter Details Date Type Department Care Team (Late st Contact Info) Description 12/21/2020 Procedure Pass OR Admitting Dept - Virtual Department [address] [place] [phone] Social History Tobacco Use Types Packs/Day Years [...] on filedocumented in this encounter Care Teams Proj Engineer Relationship Specialty Start Date End Date Markus Murphy MD [address] [place] [phone] PCP - General Family Medicine 08/01/20 documented as of this encounter Additional Source Comments The information contained in this document represents components of the legal health record. It is not the complete legal health record.[facility]
== END 2024-10-25 14:40 | disposition home or self-care (01) ==
LOC: HO.HPSW 14:10
PROVIDERS: PCP Physician Assistant; Visit Provider Nurse Practitioner Family
DX: G47.33 Obstructive sleep apnea (adult) (pediatric) (principal); G47.34 Idiopathic sleep related nonobstructive alveolar hypoventilation; E66.01 Morbid (severe) obesity due to excess calories; Z68.44 Body mass index [BMI] 60.0-69.9, adult
CPT/HCPCS: 99214

== ENCOUNTER → 2024-10-25 14:10 | Outpatient (BNVA) | payer OTHER, SELFPAY | PROVIDERS: PCP Physician Assistant; Visit Provider Nurse Practitioner Family | DX: G47.33 Obstructive sleep apnea (adult) (pediatric) (principal); G47.34 Idiopathic sleep related nonobstructive alveolar hypoventilation; E66.01 Morbid (severe) obesity due to excess calories; Z68.44 Body mass index [BMI] 60.0-69.9, adult | CPT/HCPCS: 99212 ==

== ENCOUNTER 2024-12-21 08:14 | Outpatient (AMB) | payer OTHER, SELFPAY ==
--- OUTSIDE RECORDS SUMMARY | 2024-12-21 08:31 | XMS_ITS | Encounter Summary ---
Author Organization [facility] Address [address] [facility] [address] [place] [phone] Phone Care Team Providers Care Motor Mechanic Name Role Phone Markus Murphy MD Primary Care Provider + Encounter Details Date Type Department Care Team (Late st Contact Info) Description 08/01/2020 Ancillary Orders [facility],Outside Imaging [address] [place] [address] System, Provider Not In, [facility] [address] [address] Social History Tobacco Use Types Packs/Day Years Used Date Smoking Tobacco: Never Assessed Comments Unknown Sex and Gender Information Value Date Recorded Sex Assigned at Not on file Legal Sex Female 11:26 AM EDT Gender Identity Not on file Sexual Orientation Not on file documented as of this encounter Plan of Treatment Not on file documented as of this encounter Results * XR Upper Extremity Outside (No Interpretation) (07/25/2020 12:00 AM EDT) Narrative SYSTEMGENERATED, DOCUMENTATION - 08/01/2020 11:54 AM EDT This study is for PACS storage only and not for interpretation. us Provider Not In System [facility] OUTSIDE IMAGING W /OUT INTERPRETATION Final Result documented in this encounter Visit Diagnoses Not on filedocumented in this encounter Care Teams Motor Mechanic Relationship Specialty Start Date End Date Markus Murphy MD [address] [place] [phone] PCP - General Family Medicine 08/01/20 documented as of this encounter Additional Source Comments The information contained in this document represents components of the legal health record. It is not the complete legal health record.[facility]
--- OUTSIDE RECORDS SUMMARY | 2024-12-21 08:31 | XMS_ITS | Encounter Summary ---
Author Organization [facility] Address [address] [facility] [address] [place] [address] Phone Care Team Providers Care Mill Tender Warm Up Name Role Phone Markus Murphy MD Primary Care Provider + Encounter Details Date Type Department Care Team (Late st Contact Info) Description 12/21/2020 Procedure Pass OR Admitting Dept - Virtual Department [address] [place] [phone] Social History Tobacco Use Types Packs/Day Years [...] on filedocumented in this encounter Care Teams Mill Tender Warm Up Relationship Specialty Start Date End Date Markus Murphy MD [address] [place] [phone] PCP - General Family Medicine 08/01/20 documented as of this encounter Additional Source Comments The information contained in this document represents components of the legal health record. It is not the complete legal health record.[facility]
--- OUTSIDE RECORDS SUMMARY | 2024-12-21 08:32 | XMS_ITS | Clinical Summary ---
Author Organization [facility] Address [address] [facility] [address] [place] [address] Phone Care Team Providers Care Property And Supply Officer Name Role Phone Markus Murphy MD Primary Care Provider + Allergies Active Allergy Reactions Criticality Noted Date Comments Hay Fever And Allergy Relief Low 021 Medications losartan (COZAAR) 50 MG tablet Take 50 mg by mouth daily. Active hydroCHLOROthiazid e (HYDRODIURIL) 25 MG tablet Take 25 mg by mouth daily. Active levothyroxine (SYNTHROID, LEVOTHROID) 75 MCG tablet Take 75 mcg by mouth every morning. Active albuterol 90 mcg/actuation inhaler Inhale 2 puffs into the lungs every 6 (six) hours as needed for wheezing. Active diclofenac sodium (VOLTAREN) 1 % GelIndications:Rachel combs localized osteoarthrosis of right lower leg Apply 2 g topically 4 (four) times a day as needed (Pain). P4, K10 240 g 2 2 Active Active Problems Problem Noted Date Diagnosed Date Acute medial meniscus tear of right knee 021 Social History Tobacco Use Types Packs/Day Years Used Date Smoking Tobacco: Former Cigarettes Q uit: 05/27/2019 Smokeless Tobacco: Never Alcohol Use Standard Drinks/Week Comments Yes 1 (1 standard drink = 0.6 oz pur e alcohol) Education Answer Date Recorded Are you interested in more education? Not on jorge a e 07/05/2022 Are you concerned about learning? Not on file 07/05/2022 No 07/05/2022 No 07/05/2022 Digital Access Answer Date Recorded No 08/02/2022 No 08/02/2022 Reliable internet access at home? Not on file 08/02/2022 Device with a working camera? Not on file Comments No Sex and Gender Information Value Date Recorded Sex Assigned at Not on file Legal Sex Female 11:26 AM EDT Gender Identity Not on file Sexual Orientation Not on file Last Filed Vital Signs Vital Sign Reading Time Taken Comments Blood Pressure 136/72 12/21/2020 12:14 PM EDT Pulse 100 12/21/2020 11:50 AM EDT Temperature 36.5 C (97.7 F) 12/21/2020 11:50 AM EDT Respiratory Rate 27 12/21/2020 11:50 AM EDT Oxygen Saturation 97% 12/21/2020 12:14 PM EDT Inhaled Oxygen Concentration - - Weight 146.5 kg (323 lb) 12/21/2020 10:00 AM EDT Height 157.5 cm (5' 2 ) 12/21/2020 10:00 AM EDT Body Mass Index 59.08 12/21/2020 10:00 AM EDT Plan of Treatment Health Maintenance Due Date Last Done Comments CREATININE LEVEL 1973 LIPID PANEL 1973 POTASSIUM LEVEL 1973 TSH LEVEL 1973 DEPRESSION SCREENING 1985 SMOKING Hx and SMOKELESS TOBACCO SCREENING 1986 HEPATITIS C SCREENING 1991 HIV ONE-TIME SCREENING (18-65 YEARS) 1991 PAP SMEAR 1994 MAMMOGRAM 2013 COLOGUARD 2018 COLONOSCOPY 2018 COLORECTAL CANCER SCREENING 2018 FIT TEST 2018 FOBT 2018 SIGMOIDOSCOPY 2018 VIRTUAL COLONOSCOPY 2018 PNEUMOCOCCAL VACCINES (50+ years) (2 of 2 - PCV) 2023 02/25/2017 ZOSTER VACCINES (1 of 2) 2023 INFLUENZA VACCINE (#1) 2024 , 11/20/2019, 12/14/2018, Additional history exists COVID-19 VACCINE (3 - 2024- season) 2024 03/18/2020, 02/26/2020 Adult Td,Tdap Booster 12/19/2025 12/20/2015, 016 RSV VACCINE (1 - 1-dose 75+ series) 02/15/2048 HEPATITIS A VACCINES Aged Out No long er eligible based on patient's age to complete this topic HIB VACCINES Aged Out No longer eligi ble based on patient's age to complete this topic MENINGOCOCCAL VACCINES (ACWY) Aged Out No longer eligible based on patient's age to complete this topic MENINGOCOCCAL VACCINES (B) Aged Out N o longer eligible based on patient's age to complete this topic Medical Devices Not on file Insurance WORK[employer] Care Teams Property And Supply Officer Relationship Specialty Start Date End Date Markus Murphy MD [address] [place] [phone] PCP - General Family Medicine 08/01/20 Additional Source Comments The information contained in this document represents components of the legal health record. It is not the complete legal health record.[facility]
--- OUTSIDE RECORDS SUMMARY | 2024-12-21 08:32 | XMS_ITS | Encounter Summary ---
Author Organization [facility] Address [address] [place] [address] Phone Care Team Providers Care Catechist Name Role Phone Markus Murphy MD Primary Care Provider + Encounter Details Date Type Department Care Team (Late st Contact Info) Description 08/01/2020 Procedure Pass [address] [place] [address] Social History Tobacco Use Types Packs/Day Years Used Date Smoking Tobacco: Never Assessed Comments Unknown Sex and Gender Information Value Date Recorded Sex Assigned at Not on file Legal Sex Female 11:26 AM EDT Gender Identity Not on file Sexual Orientation Not on file documented as of this encounter Last Filed Vital Signs Vital Sign Reading Time Taken Comments Blood Pressure - - Pulse - - Temperature - - Respiratory Rate - - Oxygen Saturation - - Inhaled Oxygen Concentration - - Weight 139.7 kg (308 lb) 08/04/2020 9:35 AM EDT Height 157.5 cm (5' 2 ) 08/04/2020 9:35 AM EDT Body Mass Index 56.33 08/04/2020 9:35 AM EDT documented in this encounter Plan of Treatment Not on file documented as of this encounter Visit Diagnoses Not on filedocumented in this encounter Care Teams Catechist Relationship Specialty Start Date End Date Markus Murphy MD [address] [place] [phone] PCP - General Family Medicine 08/01/20 documented as of this encounter Additional Source Comments The information contained in this document represents components of the legal health record. It is not the complete legal health record.[facility]
--- OUTSIDE RECORDS SUMMARY | 2024-12-21 08:32 | XMS_ITS | Encounter Summary ---
Author Organization [facility] Address [address] [facility] [address] [place] [phone] Phone Care Team Providers Care Sweep Molder Name Role Phone Markus Murphy MD Primary Care Provider + Encounter Details Date Type Department Care Team (Late st Contact Info) Description 08/01/2020 Ancillary Orders [facility],Outside Imaging [address] [place] [address] System, Provider Not In, [facility] [address] [address] Social History Tobacco Use Types Packs/Day Years Used Date Smoking Tobacco: Never Assessed Comments Unknown Sex and Gender Information Value Date Recorded Sex Assigned at Not on file Legal Sex Female 11:26 AM EDT Gender Identity Not on file Sexual Orientation Not on file documented as of this encounter Plan of Treatment Not on file documented as of this encounter Results * XR Lower Extremity Outside (No Interpretation) (07/25/2020 12:05 AM EDT) Narrative SYSTEMGENERATED, DOCUMENTATION - 08/01/2020 11:55 AM EDT This study is for PACS storage only and not for interpretation. us Provider Not In System PhD [facility] OUTSIDE IMAGING W /OUT INTERPRETATION Final Result documented in this encounter Visit Diagnoses Not on filedocumented in this encounter Care Teams Sweep Molder Relationship Specialty Start Date End Date Markus Murphy MD [address] [place] [phone] PCP - General Family Medicine 08/01/20 documented as of this encounter Additional Source Comments The information contained in this document represents components of the legal health record. It is not the complete legal health record.[facility]
--- NOTE | 2024-12-21 12:15 | MHC.OFFVISWM ---
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 Allergies metformin Adverse Reaction (Intermediate, Uncoded 12/21/24 12:15) Diarrhea Medication List - Last Reconciled 12/21/24 by Juan Brewer MD albuterol sulfate 90 mcg/actuation (Ventolin HFA) 1 puff inhalation Q6H 30 days apixaban (Eliquis) 5 mg PO BID 90 days blood sugar diagnostic (FreeStyle Lite Strips) As directed blood-glucose meter (FreeStyle Newnan Lite kit) As directed- once daily budesonide 180 mcg/actuation (Pulmicort Flexhaler) 1 inh inhalation BID 30 days glyburide 2.5 mg PO DAILY 60 days hydrochlorothiazide 50 mg PO DAILY 90 days lancets (FreeStyle Lancets) As directed- once daily levalbuterol HCl mg inhalation levothyroxine 75 mcg PO DAILY losartan 50 mg PO DAILY 90 days metoprolol succinate ER 50 mg PO DAILY 90 days jwiskqyo-day-ekup-FA-vit K-lut 8 mg iron-400 mcg-50 mcg (Centrum Silver Women) 1 tab PO DAILY tirzepatide (Mounjaro) 2.5 mg (0.5 mL) subcut QWEEK 4 weeks 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: Details: Start time: 12.03pm, End time: 12.58pm ?I spent 50 minutes speaking with the patient on the phone plus an additional 5 minutes reviewing and updating records for a total of 55 minutes HPI Comments Details: Previous weight loss efforts: Several commercial diets Wakes up: 7am, or 9am-11am, Sleeps: 12am Breakfast: occ at 9-11am (egg cheese sandwich) Lunch: not often 1-5pm (pork, rice, color grinder) Dinner: 6pm Snacks: at work crackers Exercise: none Beverages: Coffee (occasionally) ,Tea: none, Soda: Diet Coke, Diet Pepsi, Juice: none, ETOH: daily (1-2 glasses of Whiskey) PFSH Medical History (Updated 12/21/24 @ 12:20 by Juan Brewer MD) Osteoarthritis Morbid obesity Surgical History (Updated 12/01/24 @ 14:31 by Jaki Harper CMA) Hx of knee surgery Hx of hernia repair Family History Maternal Grandmother Ovarian cancer CHF (congestive heart failure) Other ADHD FH: mental illness Substance abuse Social History (Updated 12/01/24 @ 14:31 by Jaki Harper CMA) Housing: House Alcohol intake: current Alcohol intake frequency: 3 or more drinks per day Alcohol type: hard liquor Patient Tobacco Use Status: Former Tobacco user e-Cigarette/Vaping Use: Never Used Second Hand Smoke Exposure: Yes service: No Current occupational status: employed Current occupation: [employer] [place] Current occupational exposures/hazards: Yes Cognitive needs: No Hearing needs: No Vision needs: No Telehealth Telehealth Telehealth Platform: Telephone Location of provider rendering services: practice address Location of patient: address on file Patient Identification confirmed using: Name, : Yes Telehealth method: voice only Patient verbally consented to treatment: Yes Patient verbally consented to billing insurance company: Yes Patient informed of any privacy concerns related to visit: Yes Minutes spent on Phone/Video with Pt.: 53 Assessment & Plan Assessment & Plan (1) Morbid obesity: Code(s): E66.01 - Morbid (severe) obesity due to excess calories Category: Medical Plan: 1.? Plan for lap sleeve gastrectomy. If diaphragmatic or ventral hernias are present at time of surgery, these will be repaired laparoscopically as well. I emphasized the importance of close follow-up, adherence to instructions and good communication. The surgery does not replace the need to change your lifestlyle which is the cause of the obesity problem. The surgery provides the motivation to try again to change your lifestyle, it reduces the appetite and make the transition to a better lifestyle easier and doubles the amount of weight you would lose compared to doing the lifestyle change without the surgery. You will need to be on a liquid diet with protein shakes for 2 weeks before surgery to maximize weight loss and boost your nutritional status to recover better from surgery and also for the first two weeks after surgery to let the stomach heal before we introduce other foods. After the first 2 weeks we will introduce protein bars and soft foods like scrambled eggs, cottage cheese and yogurt and after the 6th week will introduce meat, fish and cooked vegetables in small amounts. Over time you should be able to eat everything in small amounts. Side effects like nausea, vomiting, heartburn or abdominal pain are not common in the practice unless you are not following in the practice. This operation requires lifetime commitment to following in our practice and communication with me. You will much less weight and experience side effects if you don?t communicate or not following in the practice. Complications are rare and in our practice is about 1/10 of the national average. However, you can develop bleeding that may require transfusion (hasn?t happened for year in the practice), you may from complications (we did not have any deaths in the practice) and infections. Infections are usually a result of breakdown in communication or not understanding or following directions correctly. They are difficult to treat, they can happen during the first 6 weeks, they may require to be in the hospital for weeks or even months, not being able to eat by mouth and you may have drains and surgeries to try and correct the issue. Other risks and complications include possible conversion to an open procedure, leaks, small bowel obstruction, blood clots, cardiac, or pulmonary complications, as group home complications such as ulcers, insufficient weight loss and vitamin deficiencies. 2. Nutritional counseling. A) REGULAR WORK SCHEDULE: Start with one premade PREMIER protein (buy at [employer] or [employer]) shake (8oz of Premier AND NOT THE WHOLE BOTTLE) at 8am-10am, one protein bar (Fit Crunch protein bar, buy at [employer], or [employer]) at 11am-1pm, another premade PREMIER protein shake (8oz of Premier AND NOT THE WHOLE BOTTLE) at 2pm-4pm, another [employer] protein bar at 5pm-7pm,? dinner at 8pm (10 forks of protein and 10 forks of salad/vegetables) and one more Fit Crunch bar after dinner at 9pm-11pm. So you do 2 protein shakes, 3 protein bars and one meal per day. B) 12-HOUR WORK SCHEDULE: Start with one WHOLE BOTTLE premade PREMIER protein shake at 11am-1pm, one protein bar (Fit Crunch protein bar, buy at [employer], or [employer]) at 2pm-4pm, another WHOLE BOTTLE premade PREMIER protein shake at 5pm-7pm, another [employer] protein bar at 8pm-10pm and another HALF [employer] protein bar ar 11pm to midnight. So you do 2 protein shakes, 2.5 protein bars Meal to include lean meat (beef, fish, pork, turkey, chicken), or japanese yogurt, or egg whites, or beans with a salad with olive oil and fruits (berries, pears, apples, kiwi). Avoid salt, breads, potatoes, rice, pasta, desserts. 3. Each shake would be drunk slowly, like coffee in a period of 2 hours. 4. Cut each bar in 4 pieces and eat each piece in 30min ?to make each bar last 2 hours. 5. I emphasized the importance of measuring accurately the food portion and measure it when serving the food in plate 6. The meal portions include 10 full-size forks of meat and 10 full-size forks of salad. You always eat the meat portion but you can replace up to 5 forks for salad/vegetables with rice, potatoes or pasta, or a fruit ?if you like. The less you do it the better weight loss will be. 7. One full-size fork is what it can be scooped on the fork without falling aside and not what can be bit with the fork. Use regular forks like those you find in a typical restaurant. 8.? Please buy the body composition scale we discussed and send me weight measurements as soon as possible and then once a week. Always include your diet and exercise plan. 9. Start walking outside daily, tracking calories with a goal of 300 calories per day, daily. Goal is to burn 2000 calories per week on exercise, which means either 300 calories daily, or 400 calories 5 days per week, or 500 calories 4 days per week, or 650 calories 3 days per week. 10. The best choice would be to purchase a stationary bike, elliptical at home that can track calories. If you get one, please start stationary bike at a resistance level of 0.0 Increase level by 1.0 every 3 min to a max level of 6.0. Stay at this level for 3 min and then return to level 4.0 and repeat same steps until 300 calories are burned. You could also split it into sessions per day of 150 calories each. Goal is to burn 2000 calories per week on exercise 11. Goal is to lose at least 1.5-2lbs per week 12. Goal to lose 10% of your weight before surgery, which is about 28lbs. Minimum weight goal: 300lbs before surgery 13. Please follow the diet plan exactly without any change. If you don't like something about the plan or you feel hungry you need to communicate with me so I can help you revise the plan. You should not change the plan yourself 14. To be scheduled for EGD to assess the stomach's anatomy. The possibility of biopsies was discussed. Patient needs to avoid use of NSAIDs and aspirin for 1 week prior to EGD. You must be on liquids only the day before your endoscopy. Risks of perforation and bleeding was discussed with the patient. This will be an outpatient procedure with IV sedation. 15. Emphasized the importance of checking his blood glucose levels frequently and daily and to report to me any blood glucose below 100, so I can adjust his insulin and prevent hypoglycemic episodes 16. Emphasized the importance of monitoring the blood pressure daily in am when wakes up and two more times throughout the day. If systolic blood pressure is 120 mmHg, or less I explained to the patient that needs to notify me. Also I explained the symptoms of orthostatic hypotension (dizziness and lightheadedness) for which the patient also needs to notify me. Orders: Orders Insulin Today E03.9 - Hypothyroidism, unspecified, E11.65 - Type 2 diabetes mellitus with hyperglycemia, E66.01 - Morbid (severe) obesity due to excess calories, E78.2 - Mixed hyperlipidemia, I10 - Essential (primary) hypertension, I48.0 - Paroxysmal atrial fibrillation H Pylori Breath Test Today E03.9 - Hypothyroidism, unspecified, E11.65 - Type 2 diabetes mellitus with hyperglycemia, E66.01 - Morbid (severe) obesity due to excess calories, E78.2 - Mixed hyperlipidemia, I10 - Essential (primary) hypertension, I48.0 - Paroxysmal atrial fibrillation Lipid Panel Today E03.9 - Hypothyroidism, unspecified, E11.65 - Type 2 diabetes mellitus with hyperglycemia, E66.01 - Morbid (severe) obesity due to excess calories, E78.2 - Mixed hyperlipidemia, I10 - Essential (primary) hypertension, I48.0 - Paroxysmal atrial fibrillation IRON PROFILE Today E03.9 - Hypothyroidism, unspecified, E11.65 - Type 2 diabetes mellitus with hyperglycemia, E66.01 - Morbid (severe) obesity due to excess calories, E78.2 - Mixed hyperlipidemia, I10 - Essential (primary) hypertension, I48.0 - Paroxysmal atrial fibrillation Zinc Today E03.9 - Hypothyroidism, unspecified, E11.65 - Type 2 diabetes mellitus with hyperglycemia, E66.01 - Morbid (severe) obesity due to excess calories, E78.2 - Mixed hyperlipidemia, I10 - Essential (primary) hypertension, I48.0 - Paroxysmal atrial fibrillation Vitamin A Today E03.9 - Hypothyroidism, unspecified, E11.65 - Type 2 diabetes mellitus with hyperglycemia, E66.01 - Morbid (severe) obesity due to excess calories, E78.2 - Mixed hyperlipidemia, I10 - Essential (primary) hypertension, I48.0 - Paroxysmal atrial fibrillation Ferritin Today E03.9 - Hypothyroidism, unspecified, E11.65 - Type 2 diabetes mellitus with hyperglycemia, E66.01 - Morbid (severe) obesity due to excess calories, E78.2 - Mixed hyperlipidemia, I10 - Essential (primary) hypertension, I48.0 - Paroxysmal atrial fibrillation Vitamin D 25-OH Total Today E03.9 - Hypothyroidism, unspecified, E11.65 - Type 2 diabetes mellitus with hyperglycemia, E66.01 - Morbid (severe) obesity due to excess calories, E78.2 - Mixed hyperlipidemia, I10 - Essential (primary) hypertension, I48.0 - Paroxysmal atrial fibrillation XR chest 2V Today E03.9 - Hypothyroidism, unspecified, E11.65 - Type 2 diabetes mellitus with hyperglycemia, E66.01 - Morbid (severe) obesity due to excess calories, E78.2 - Mixed hyperlipidemia, I10 - Essential (primary) hypertension, I48.0 - Paroxysmal atrial fibrillation Hemoglobin A1c Today E03.9 - Hypothyroidism, unspecified, E11.65 - Type 2 diabetes mellitus with hyperglycemia, E66.01 - Morbid (severe) obesity due to excess calories, E78.2 - Mixed hyperlipidemia, I10 - Essential (primary) hypertension, I48.0 - Paroxysmal atrial fibrillation Complete Blood Count Auto Diff Today E03.9 - Hypothyroidism, unspecified, E11.65 - Type 2 diabetes mellitus with hyperglycemia, E66.01 - Morbid (severe) obesity due to excess calories, E78.2 - Mixed hyperlipidemia, I10 - Essential (primary) hypertension, I48.0 - Paroxysmal atrial fibrillation Comprehensive Met. Panel Today E03.9 - Hypothyroidism, unspecified, E11.65 - Type 2 diabetes mellitus with hyperglycemia, E66.01 - Morbid (severe) obesity due to excess calories, E78.2 - Mixed hyperlipidemia, I10 - Essential (primary) hypertension, I48.0 - Paroxysmal atrial fibrillation Vitamin B12 and Folate Today E03.9 - Hypothyroidism, unspecified, E11.65 - Type 2 diabetes mellitus with hyperglycemia, E66.01 - Morbid (severe) obesity due to excess calories, E78.2 - Mixed hyperlipidemia, I10 - Essential (primary) hypertension, I48.0 - Paroxysmal atrial fibrillation C Reactive Protein Today E03.9 - Hypothyroidism, unspecified, E11.65 - Type 2 diabetes mellitus with hyperglycemia, E66.01 - Morbid (severe) obesity due to excess calories, E78.2 - Mixed hyperlipidemia, I10 - Essential (primary) hypertension, I48.0 - Paroxysmal atrial fibrillation Vitamin B1 Today E03.9 - Hypothyroidism, unspecified, E11.65 - Type 2 diabetes mellitus with hyperglycemia, E66.01 - Morbid (severe) obesity due to excess calories, E78.2 - Mixed hyperlipidemia, I10 - Essential (primary) hypertension, I48.0 - Paroxysmal atrial fibrillation TSH reflex Free T4 Today E03.9 - Hypothyroidism, unspecified, E11.65 - Type 2 diabetes mellitus with hyperglycemia, E66.01 - Morbid (severe) obesity due to excess calories, E78.2 - Mixed hyperlipidemia, I10 - Essential (primary) hypertension, I48.0 - Paroxysmal atrial fibrillation US abdomen comp w elastography Today E03.9 - Hypothyroidism, unspecified, E11.65 - Type 2 diabetes mellitus with hyperglycemia, E66.01 - Morbid (severe) obesity due to excess calories, E78.2 - Mixed hyperlipidemia, I10 - Essential (primary) hypertension, I48.0 - Paroxysmal atrial fibrillation ECG 12 lead EKG Today E03.9 - Hypothyroidism, unspecified, E11.65 - Type 2 diabetes mellitus with hyperglycemia, E66.01 - Morbid (severe) obesity due to excess calories, E78.2 - Mixed hyperlipidemia, I10 - Essential (primary) hypertension, I48.0 - Paroxysmal atrial fibrillation FL upper GI w air Today E03.9 - Hypothyroidism, unspecified, .65 - Type 2 diabetes mellitus with hyperglycemia, E66.01 - Morbid (severe) obesity due to excess calories, E78.2 - Mixed hyperlipidemia, I10 - Essential (primary) hypertension, I48.0 - Paroxysmal atrial fibrillation Referrals Behavioral Health Referral E03.9 - Hypothyroidism, unspecified, E11.65 - Type 2 diabetes mellitus with hyperglycemia, E66.01 - Morbid (severe) obesity due to excess calories, E78.2 - Mixed hyperlipidemia, I10 - Essential (primary) hypertension, I48.0 - Paroxysmal atrial fibrillation Nutrition/Dietitian Referral E03.9 - Hypothyroidism, unspecified, E11.65 - Type 2 diabetes mellitus with hyperglycemia, E66.01 - Morbid (severe) obesity due to excess calories, E78.2 - Mixed hyperlipidemia, I10 - Essential (primary) hypertension, I48.0 - Paroxysmal atrial fibrillation
[2024-12-21 12:26] VITALS: BMI 60.1
== END 2024-12-21 12:58 | disposition home or self-care (01) ==
LOC: HO.HBS 08:14
PROVIDERS: PCP Physician Assistant; Visit Provider Surgery
DX: E66.01 Morbid (severe) obesity due to excess calories (principal)
CPT/HCPCS: 99204

== ENCOUNTER 2024-12-23 10:18 | Outpatient (REF) | payer OTHER, SELFPAY ==
--- NOTE | ~2024-12-23 | XR_ITS ---
EXAMINATION: XR CHEST CLINICAL INFORMATION: E66.01 - Morbid (severe) obesity due to excess calories COMPARISON: 06/22/2024. TECHNIQUE: 2 views of the chest were obtained. FINDINGS: The cardiac, hilar, and mediastinal contours are normal. The lungs are clear bilaterally. There is no pneumothorax or pleural effusion. There is no focal osseous or soft tissue abnormality. XR/XR chest 2V IMPRESSION: No active pulmonary disease. Electronically signed by: Vinny Angela MD 12/23/2024 11:17 AM EDT
--- NOTE | 2024-12-23 10:26 | ECG_ITS ---
Test Reason : OBS Blood Pressure : */* mmHG Vent. Rate : 91 BPM Atrial Rate : 91 BPM P-R Int : 148 ms QRS Dur : 96 ms QT Int : 384 ms P-R-T Axes : 60 68 29 degrees QTcB Int : 472 ms Normal sinus rhythm Incomplete right bundle branch block Borderline ECG When compared with ECG of 22-Jun-2024 10:55, No significant change was found Referred By: Juan Brewer Electronically Signed By: Basil Boaetng
[2024-12-23 10:56] LABS: MANUAL DIFF FLAG NO
[2024-12-23 11:02] LABS: Hematocrit 41.4 % (37.0-47.0); Hemoglobin 14.1 g/dl (12.0-16.0); Imm Gran Abs Auto 0.03 X10*3/uL (0.00-0.03); Imm Gran Pct Auto 0.4 % (0.0-0.4); Lymphocytes Absolute Auto 1.7 X10*3/uL (1.2-4.9); Mean Corpuscular HGB Conc 34.1 g/dl (31.0-35.0); Mean Corpuscular Hemoglobin 32.4 pg (27.0-33.0); Mean Corpuscular Volume 95.2 fL (80.0-98.0); NRBC Abs Auto 0.000 X10*3/uL (0.0-0.012); NRBC Pct Auto 0.0 /100WBC (0.0-0.2); Platelet Count 304 X10*3/uL (160-400); Red Blood Count 4.35 X10*6/uL (4.20-5.50); White Blood Count 7.6 X10*3/uL (4.8-10.8)
--- OUTSIDE RECORDS SUMMARY | 2024-12-23 12:14 | XMS_ITS | Encounter Summary ---
Author Organization [facility] Address [address] [facility] [address] [place] [phone] Phone Care Team Providers Care Account Financial Manager Name Role Phone Markus Murphy MD Primary Care Provider + Encounter Details Date Type Department Care Team (Late st Contact Info) Description 12/21/2020 Procedure Pass OR Admitting Dept - Virtual Department [address] [place] [id number] Social History Tobacco Use Types Packs/Day Years [...] on filedocumented in this encounter Care Teams Account Financial Manager Relationship Specialty Start Date End Date Markus Murphy MD [address] [place] [phone] PCP - General Family Medicine 08/01/20 documented as of this encounter Additional Source Comments The information contained in this document represents components of the legal health record. It is not the complete legal health record.[facility]
--- OUTSIDE RECORDS SUMMARY | 2024-12-23 12:14 | XMS_ITS | Encounter Summary ---
Author Organization [facility] Address [address] [facility] [address] [place] [phone] Phone Care Team Providers Care Gut Snatcher Name Role Phone Markus Murphy MD Primary Care Provider + Encounter Details Date Type Department Care Team (Late st Contact Info) Description 08/01/2020 Ancillary Orders [facility],Outside Imaging [address] [place] [address] System, Provider Not In, [facility] [address] [address] Social History Tobacco Use Types Packs/Day Years [...] on filedocumented in this encounter Care Teams Gut Snatcher Relationship Specialty Start Date End Date Markus Murphy MD [address] [place] [phone] PCP - General Family Medicine 08/01/20 documented as of this encounter Additional Source Comments The information contained in this document represents components of the legal health record. It is not the complete legal health record.[facility]
--- OUTSIDE RECORDS SUMMARY | 2024-12-23 12:14 | XMS_ITS | Encounter Summary ---
Author Organization [facility] Address [address] [place] [address] Phone Care Team Providers Care Forestry Technical Officer Name Role Phone Markus Murphy MD Primary Care Provider + Encounter Details Date Type Department Care Team (Late st Contact Info) Description 08/01/2020 Procedure Pass [address] [place] [address] Social History Tobacco Use Types Packs/Day Years [...] on filedocumented in this encounter Care Teams Forestry Technical Officer Relationship Specialty Start Date End Date Markus Murphy MD [address] [place] [phone] PCP - General Family Medicine 08/01/20 documented as of this encounter Additional Source Comments The information contained in this document represents components of the legal health record. It is not the complete legal health record.[facility]
--- OUTSIDE RECORDS SUMMARY | 2024-12-23 12:14 | XMS_ITS | Clinical Summary ---
Author Organization [facility] Address [address] [facility] [address] [place] [address] Phone Care Team Providers Care Quality Review Specialist Name Role Phone Markus Murphy MD Primary [...] on file Insurance WORKERS COMPENSATION Care Teams Quality Review Specialist Relationship Specialty Start Date End Date Markus Murphy MD [address] [place] [phone] PCP - General Family Medicine 08/01/20 Additional Source Comments The information contained in this document represents components of the legal health record. It is not the complete legal health record.[facility]
--- OUTSIDE RECORDS SUMMARY | 2024-12-23 12:14 | XMS_ITS | Encounter Summary ---
Author Organization [facility] Address [address] [facility] [address] [place] [address] Phone Care Team Providers Care Harbor Tug Captain Name Role Phone Markus Murphy MD Primary Care Provider + Encounter Details Date Type Department Care Team (Late st Contact Info) Description 08/01/2020 Ancillary Orders [facility],Outside Imaging [address] [place] [address] System, Provider Not In, [facility] [address] [address] Social History Tobacco Use Types Packs/Day Years [...] on filedocumented in this encounter Care Teams Harbor Tug Captain Relationship Specialty Start Date End Date Markus Murphy MD [address] [place] [phone] PCP - General Family Medicine 08/01/20 documented as of this encounter Additional Source Comments The information contained in this document represents components of the legal health record. It is not the complete legal health record.[facility]
[2024-12-23 13:51] LABS: Alanine Aminotransferase 27 U/L (0-31); Albumin Level 4.3 g/dL (3.5-5.0); Alkaline Phosphatase 89 U/L (39-117); Anion Gap 14 (12-20); Aspartate Amino Transferase 24 U/L (5-31); Blood Urea Nitrogen 15 mg/dL (9-16); Calcium 9.5 mg/dL (8.4-10.2); Carbon Dioxide 32 mmol/L (22-29); Chloride 98 mmol/L (96-108); Cholesterol 228 mg/dL (<200); Estimated Glomerular Filt Rate > 60; HDL Cholesterol 89 mg/dL (>40); Iron 66 mcg/dL (30-160); Percent Iron Saturation 19 % (15-50); Potassium 3.5 mmol/L (3.3-5.1); Sodium 140 mmol/L (135-145); Total Iron Binding Capacity 343 mcg/dL (228-428); Total Protein 7.5 g/dL (6.5-8.0); Triglycerides 93 mg/dL (<150); Unsaturated Iron Binding 277 ug/dL
[2024-12-23 14:20] LABS: Ferritin 147 ng/mL (10-250)
[2024-12-23 16:31] LABS: Folate 14.1 ng/mL (> or = 4.0); Vitamin B12 582 pg/mL (200-900)
== END 2024-12-23 10:19 | disposition home or self-care (01) ==
LOC: HO.LAB 10:18
PROVIDERS: Absent Provider Physician Assistant; PCP Physician Assistant; Visit Provider Surgery
DX: E11.65 Type 2 diabetes mellitus with hyperglycemia (principal); E78.2 Mixed hyperlipidemia; I48.0 Paroxysmal atrial fibrillation; I10 Essential (primary) hypertension; E03.9 Hypothyroidism, unspecified; E66.01 Morbid (severe) obesity due to excess calories
CPT/HCPCS: 36415; 71046; 80053; 80061; 82306; 82607; 82728; 82746; 83036; 83525; 83540; 84425; 84443; 84590; 84630; 85025; 86140; 93005

== ENCOUNTER → 2024-12-23 10:26 | Outpatient (BNV) | payer OTHER, SELFPAY | PROVIDERS: Absent Provider Physician Assistant; PCP Physician Assistant; Visit Provider Internal Medicine Cardiovascular Disease | DX: I45.10 Unspecified right bundle-branch block (principal) | CPT/HCPCS: 93010 ==

== ENCOUNTER → 2024-12-23 10:56 | Outpatient (BNV) | payer OTHER, SELFPAY | PROVIDERS: Absent Provider Physician Assistant; PCP Physician Assistant; Visit Provider Radiology Diagnostic Radiology | DX: E66.01 Morbid (severe) obesity due to excess calories (principal); Z68.44 Body mass index [BMI] 60.0-69.9, adult | CPT/HCPCS: 71046 ==

== ENCOUNTER 2025-01-05 10:47 | Outpatient (AMB) | payer OTHER, SELFPAY ==
--- NOTE | 2025-01-05 10:56 | A.OFFPC_ITS ---
Vital Signs 01/05/25 10:57 Height 5 ft 2 in Weight 323 lb BMI 59.1 BP 124/78 Blood Pressure Location Lt brachial Position Sitting Pulse 83 Pulse Source Pulse Oximeter Pulse Oximetry (%) 96 Oxygen Delivery Method Room Air Intake Visit Reasons: f/u DMII/ TIERRA/ HTN Health Communications Specialist Required: No Accompanied by: Self / Same As Patient Allergies metformin Adverse Reaction (Intermediate, Uncoded 01/05/25 11:16) Diarrhea Medication List - Last Reconciled 01/05/25 by Kian Hannon PA-C albuterol sulfate 90 mcg/actuation (Ventolin HFA) 1 puff inhalation Q6H 30 days apixaban (Eliquis) 5 mg PO BID 90 days blood sugar diagnostic (FreeStyle Lite Strips) As directed blood-glucose meter (FreeStyle [place] Lite kit) As directed- once daily budesonide 180 mcg/actuation (Pulmicort Flexhaler) 1 inh inhalation BID 30 days glyburide 2.5 mg PO DAILY 60 days hydrochlorothiazide 50 mg PO DAILY 90 days lancets (FreeStyle Lancets) As directed- once daily levalbuterol HCl mg inhalation levothyroxine 75 mcg PO DAILY losartan 50 mg PO DAILY 90 days metoprolol succinate ER 50 mg PO DAILY 90 days wjaydbbs-rjr-tipn-FA-vit K-lut 8 mg iron-400 mcg-50 mcg (Centrum Silver Women) 1 tab PO DAILY tirzepatide (Mounjaro) 2.5 mg (0.5 mL) subcut QWEEK 4 weeks Tobacco use date assessed: 01/05/25 Dental Screening Dental Screen Date: 01/05/25 Did you have a dental visit in the last 12 months?: No Did you have a dental problem in the last 6 months where you did not have access to dental care?: No Was dental information given to patient?: No HPI f/u DMII/ TIERRA/ HTN HPI Details Patient is a 49-year-old female here today for a follow-up visit. Patient has a past medical history significant for asthma, former smoker, AFIB, type 2 diabetes, obesity, hyperlipidemia, hypothyroidism and hypertension. .. Hypertension: Patient on losartan and hydrochlorothiazide with decent affect on her blood pressure . Today's blood pressure in office acceptable. .. .. Class 3 Obesity: She recently joined a weight management program in preparation for bariatric surgery and has been on a strict diet of protein bars and shakes for the past two weeks, resulting in a weight loss of 10.8 pounds. The surgical plan includes a goal of losing 30 pounds, with the surgery anticipated between March and May. Her pre-operative evaluations include a psychological evaluation on January 12 and an EGD on January 19.. .. Obstructive sleep apnea: Recent sleep study showing positive evidence of moderate to severe obstructive sleep apnea. Has followed up with a titration sleep study She is now followed by pulmonology and now on CPAP therapy on a nightly basis. .. Type 2 diabetes: Today's A1c acceptable. She continues on Mounjaro and glyburide has stopped using metformin due to intolerable side effect of diarrhea. She continues on glyburide. She anticipates getting off of diabetes medications status post bariatric surgery . [facility] Medical History Osteoarthritis Morbid obesity Surgical History Hx of knee surgery Hx of hernia repair Family History Maternal Grandmother Ovarian cancer CHF (congestive heart failure) Other ADHD FH: mental illness Substance abuse Social History Housing: House Alcohol intake: current Alcohol intake frequency: 3 or more drinks per day Alcohol type: hard liquor Patient Tobacco Use Status: Former Tobacco user e-Cigarette/Vaping Use: Never Used Second Hand Smoke Exposure: Yes service: No Current occupational status: employed Current occupation: [employer] [place] Current occupational exposures/hazards: Yes Cognitive needs: No Hearing needs: No Vision needs: No Questionnaire Thrive Questionnaire Date Thrive assessed: 03/29/24 I am a: Patient What is your living situation today?: I have a steady place to live Within the past 12 months, did the food you bought not last and you didn't have the money to get more?: I choose not to answer this question Within the past 12 months, did you worry whether your food would run out before you got money to buy more?: I choose not to answer this question Do you have trouble paying for medicines?: I choose not to answer this question Do you have trouble getting transportation to medical appointments?: I choose not to answer this question Do you have trouble paying your heating and electricity bill?: I choose not to answer this question Do you have trouble taking care of your child, family member or friend?: I choose not to answer this question Do you have trouble with day-to-day activities such as bathing, preparing meals, shopping, managing finances, etc.?: I choose not to answer this question Are you currently unemployed and looking for a job?: I choose not to answer this question Are you interested in more education?: I choose not to answer this question Please select the resources that you would like help with: None Currently or been in a relationship where the following occur: I choose not to answer THRIVE Score: 0 AUDIT C Alcohol Use Questionnaire (AUDIT-C) 1. How often do you have a drink containing alcohol?: 4 or more times a week 2. How many drinks containing alcohol do you have on a typical day when you are drinking?: 1 or 2 3. How often do you have six or more drinks on one occasion?: Never Total Score: 4 SABA-7 AMB Questionnaire SABA-7 Date SABA - 7 assessed: 03/29/24 Source: Developed by Drs. Sourav Rosa, Janelle [place], Dangelo Adan and colleagues, with an educational marissa from [employer]. Review of Systems Const Denies headache(s) Eyes Denies loss of vision ENT Denies vertigo, Denies dizziness, Denies headache(s) and Denies sore throat Card Denies chest pain, Denies leg edema and Denies lightheadedness Resp Denies cough, Denies hemoptysis and Denies wheezing GI Denies abdominal pain, Denies melena, Denies constipation, Denies diarrhea and Denies vomiting Denies urinary frequency, Denies dysuria and Denies urinary urgency Musc Denies arthralgias, Denies joint swelling, Denies numbness and Denies tingling Neuro Denies Abnormal speech present, Denies behavioral changes, Denies vertigo, Denies dizziness, Denies headache(s), Denies loss of vision, Denies memory loss, Denies numbness and Denies tingling Psych Denies anxiety, Denies behavioral changes, Denies depression, Denies memory loss and Denies panic attacks Kendall/Lymph Denies easy bleeding and Denies easy bruising Aller/Immun Denies wheezing Physical exam (Primary Care) Vital Signs: Last Vital Signs Pulse 83 01/05/25 10:57 BP 124/78 01/05/25 10:57 Pulse Ox 96 01/05/25 10:57 Oxygen Delivery Method Room Air 01/05/25 10:57 BMI result Body Mass Index 59.1 Tobacco/Smoking Status: Tobacco use Status Tobacco use date assessed 01/05/25 01/05/25 11:05 Patient Tobacco Use Status Former Tobacco user 01/05/25 11:05 e-Cigarette/Vaping Use Never Used 01/05/25 11:05 Thrive Assessment: Date of Thrive Assessment Date Thrive assessed 03/29/24 01/05/25 11:05 Currently or been in a relationship where the following occur: I choose not to answer Const General: healthy appearing, no acute distress, alert and awake Nutritional Appearance: well nourished Orientation/consciousness: oriented to person, oriented to place and oriented to time HENMT Ears: TM's normal bilaterally General nose exam: Normal nasal mucous membranes and turbinates present Eyes Conjunctivae: conjunctivae normal Sclerae: sclerae normal Pupils: Equal, round and reactive pupils present Neck Neck: Yes no lymphadenopathy and Yes no JVD Thyroid: Thyroid normal Carotids: no bruits Resp Effort & Inspection: normal respiratory effort and not tachypneic Auscultation: no crackles, no rales, no rhonchi and no wheezes Cardio Rate: regular rate Rhythm: regular rhythm Heart sounds: no murmurs and normal S1 and S2 GI Palpation (GI): Soft to palpation, nontender, no hepatomegaly and no splenomegaly Auscultation: normal bowel sounds Skin General skin exam: no rashes or lesions noted and dry skin Neuro General: oriented to person, oriented to place and oriented to time Cranial nerves: Yes Equal, round and reactive pupils present Speech: No Abnormal speech present Gait exam (Neuro): Normal gait present Motor exam (neuro): no tremor noted Extrem Right upper extremity: full ROM Left upper extremity: full ROM Right lower extremity: full ROM; no edema Left lower extremity: full ROM; no edema Psych Mental Status: mental status grossly normal Speech and movement: Normal speech and movement present Affect: normal affect Attitude: cooperative Thought process: Normal thought process present Office Procedures Flu Questionnaire Does the patient have a severe egg allergy?: No Does the patient have severe life threatening allergies?: No Does the patient have a fever or illness today?: No Has the patient ever had Guillain-Starbuck Syndrome?: No Has the patient ever had any past reaction to a flu shot?: No Immunizations Fluarix [id number] (PF) 45 mcg (15 mcg x 3)/0.5 mL IM syringe Performing Provider: Kian Hannon PA-C [facility] Administered by: ARINA Goetz on 01/05/25 11:40 Dose Route Admin Location Dispensed Lot Number Expiration Date [facility] Chemical Analytical Sampler 0.5 mL IM Right Deltoid 0.5 mL [id number] 09/05/25 [id number] Faveous VIS Given Date VIS Provided VIS Publication Date 01/05/25 Single Vaccine 24 Eligibility Eligibility Date Funding Source Not [facility] Eligible 01/05/25 Private Coding Level of Care Code Est Pt Level 4 (91171) Diagnoses Type 2 diabetes mellitus with hyperglycemia, without long-term current use of insulin E11.65 Diabetes mellitus complication status: with hyperglycemia Diabetes mellitus manager long term care insulin use: without manager long term care use Mild persistent asthma without complication J45.30 Asthma complication type: uncomplicated Asthma persistence: persistent Asthma severity: mild Mixed hyperlipidemia E78.2 Hyperlipidemia type: mixed hyperlipidemia Paroxysmal atrial fibrillation I48.0 Primary hypertension I10 Hypertension type: primary hypertension TIERRA (obstructive sleep apnea) G47.33 Class 3 obesity E66.813 Assessment & Plan Assessment & Plan (1) DMII (diabetes mellitus, type 2): Code(s): E11.9 - Type 2 diabetes mellitus without complications Category: Medical Qualifiers: Diabetes mellitus complication status: with hyperglycemia Diabetes mellitus manager long term care insulin use: without residential use Qualified Code(s): E11.65 - Type 2 diabetes mellitus with hyperglycemia Plan: Patient was not able to tolerate metformin due to intolerable diarrhea. She has been transitioned to glyburide which has helped reduce her A1c to 6.1. Will try monitor for glycemic control and weight loss. Goal A1c is to remain below 7.0 (2) Asthma: Code(s): J45.909 - Unspecified asthma, uncomplicated Category: Medical Qualifiers: Asthma complication type: uncomplicated Asthma persistence: persistent Asthma severity: mild Qualified Code(s): J45.30 - Mild persistent asthma, uncomplicated Plan: Patient has a moderate to severe obstructive sleep apnea, uses a CPAP machine on a nightly basis with good effect on her sleep (3) HLD (hyperlipidemia): Code(s): E78.5 - Hyperlipidemia, unspecified Category: Medical Qualifiers: Hyperlipidemia type: mixed hyperlipidemia Qualified Code(s): E78.2 - Mixed hyperlipidemia Plan: Patient's most recent lipid panel showing elevated total cholesterol and LDL for her CV risk. We did discuss starting statin therapy to reduce her LDL optimally below 70 due to her cardiovascular risk though she declines and will like to work more on her lifestyle and dietary changes (4) Paroxysmal atrial fibrillation: Code(s): I48.0 - Paroxysmal atrial fibrillation Category: Medical Plan: Patient now rate controlled with metoprolol and anticoagulated with Eliquis. Patient denies any overt signs of bleeding besides bright red blood per rectum due to constipation recently. Was found to obstructive sleep apnea now has a CPAP machine She will continue cardiology workup. Currently has a Holter monitor for further evaluation (5) HTN (hypertension): Code(s): I10 - Essential (primary) hypertension Category: Medical Qualifiers: Hypertension type: primary hypertension Qualified Code(s): I10 - Essential (primary) hypertension Plan: Patient's blood pressure acceptable today in office. She continues on losartan hydrochlorothiazide with decent blood pressure control. She is now also on metoprolol. She is a former smoker quit in 2020. Goal blood pressures to remain below 140/90 (6) TIERRA (obstructive sleep apnea): Code(s): G47.33 - Obstructive sleep apnea (adult) (pediatric) Category: Medical Plan: Patient followed by pulmonology here in [place] .Patient has moderate to severe obstructive sleep apnea with nocturnal hypoxemia. Now on CPAP machine at night. (7) Class 3 obesity: Code(s): E66.813 - Obesity, class 3 Category: Medical Plan: Patient now followed by [place] bariatric program. She anticipates getting bariatric surgery in early 2025 Orders: Orders Influenza [id number] Immunization Today Z23 - Encounter for immunization
[2025-01-05 10:57] VITALS: BP 124/78; PULSE 83; O2SAT 96; BMI 59.1
--- OUTSIDE RECORDS SUMMARY | 2025-01-05 13:27 | XMS_ITS | Encounter Summary ---
Author Organization [facility] Address [address] [place] [address] Phone Care Team Providers Care Sales Recruitment Specialist Name Role Phone Markus Murphy MD Primary Care Provider + Encounter Details Date Type Department Care Team (Late st Contact Info) Description 08/01/2020 Procedure Pass [address] [place] [address] Social History Tobacco Use Types Packs/Day Years [...] on filedocumented in this encounter Care Teams Sales Recruitment Specialist Relationship Specialty Start Date End Date Markus Murphy MD [address] [place] [phone] PCP - General Family Medicine 08/01/20 documented as of this encounter Additional Source Comments The information contained in this document represents components of the legal health record. It is not the complete legal health record.[facility]
--- OUTSIDE RECORDS SUMMARY | 2025-01-05 13:27 | XMS_ITS | Encounter Summary ---
Author Organization [facility] Address [address] [facility] [address] [place] [address] Phone Care Team Providers Care Day Trader Name Role Phone Markus Murphy MD Primary Care Provider + Encounter Details Date Type Department Care Team (Late st Contact Info) Description 08/01/2020 Ancillary Orders [facility],Outside Imaging [address] [place] [address] System, Provider Not In, [facility] [address] [address] Social History Tobacco Use Types Packs/Day Years [...] on filedocumented in this encounter Care Teams Day Trader Relationship Specialty Start Date End Date Markus Murphy MD [address] [place] [address] PCP - General Family Medicine 08/01/20 documented as of this encounter Additional Source Comments The information contained in this document represents components of the legal health record. It is not the complete legal health record.[facility]
--- OUTSIDE RECORDS SUMMARY | 2025-01-05 13:27 | XMS_ITS | Encounter Summary ---
Author Organization [facility] Address [address] [facility] [address] [place] [address] Phone Care Team Providers Care Sports Physical Therapist Name Role Phone Markus Murphy MD Primary Care Provider + Encounter Details Date Type Department Care Team (Late st Contact Info) Description 08/01/2020 Ancillary Orders [facility],Outside Imaging [address] [place] [address] System, Provider Not In, [facility] [address] [address] Social History Tobacco Use Types Packs/Day Years [...] on filedocumented in this encounter Care Teams Sports Physical Therapist Relationship Specialty Start Date End Date Markus Murphy MD [address] [place] [phone] PCP - General Family Medicine 08/01/20 documented as of this encounter Additional Source Comments The information contained in this document represents components of the legal health record. It is not the complete legal health record.[facility]
--- OUTSIDE RECORDS SUMMARY | 2025-01-05 13:27 | XMS_ITS | Encounter Summary ---
Author Organization [facility] Address [address] [employer] [facility] [address] [place] [address] Phone Care Team Providers Care Veneer Stock Layer Name Role Phone Markus Murphy MD Primary Care Provider + Encounter Details Date Type Department Care Team (Late st Contact Info) Description 12/21/2020 Procedure Pass OR Admitting Dept - Virtual Department [address] [place] [address] Social History Tobacco Use Types Packs/Day Years [...] on filedocumented in this encounter Care Teams Veneer Stock Layer Relationship Specialty Start Date End Date Markus Murphy MD [address] [place] [phone] PCP - General Family Medicine 08/01/20 documented as of this encounter Additional Source Comments The information contained in this document represents components of the legal health record. It is not the complete legal health record.[facility]
--- OUTSIDE RECORDS SUMMARY | 2025-01-05 13:27 | XMS_ITS | Clinical Summary ---
Author Organization [facility] Address [address] [email or web address] [facility] [address] [place] [address] Phone Care Team Providers Care Social Security Specialist Name Role Phone Markus Murphy MD [...] on file Insurance WORKERS COMPENSATION Care Teams Social Security Specialist Relationship Specialty Start Date End Date Markus Murphy MD [address] [place] [phone] PCP - General Family Medicine 08/01/20 Additional Source Comments The information contained in this document represents components of the legal health record. It is not the complete legal health record.[facility]
== END 2025-01-05 11:41 | disposition home or self-care (01) ==
LOC: HO.HMCH 10:48
PROVIDERS: PCP Physician Assistant; Visit Provider Physician Assistant
DX: E11.65 Type 2 diabetes mellitus with hyperglycemia (principal); E66.813 Obesity, class 3; I48.0 Paroxysmal atrial fibrillation; Z68.43 Body mass index [BMI] 50.0-59.9, adult; J45.30 Mild persistent asthma, uncomplicated; E78.2 Mixed hyperlipidemia; I10 Essential (primary) hypertension; G47.33 Obstructive sleep apnea (adult) (pediatric); Z23 Encounter for immunization

== ENCOUNTER → 2025-01-05 10:47 | Outpatient (BNVA) | payer OTHER, SELFPAY | PROVIDERS: PCP Physician Assistant; Visit Provider Physician Assistant | DX: I10 Essential (primary) hypertension (principal); J45.909 Unspecified asthma, uncomplicated; E66.813 Obesity, class 3; G47.33 Obstructive sleep apnea (adult) (pediatric); E11.65 Type 2 diabetes mellitus with hyperglycemia; J45.30 Mild persistent asthma, uncomplicated; E78.2 Mixed hyperlipidemia; I48.0 Paroxysmal atrial fibrillation; Z23 Encounter for immunization; Z68.43 Body mass index [BMI] 50.0-59.9, adult; Z79.899 Other long term (current) drug therapy | CPT/HCPCS: 90471; 90656; 99212 ==

== ENCOUNTER 2025-01-12 10:35 | Outpatient (AMB) | payer OTHER, SELFPAY ==
--- NOTE | 2025-01-12 11:00 | A.OFFWM_ITS ---
Intake Intake Visit Reasons: (OV) BH Intake Allergies metformin Adverse Reaction (Intermediate, Uncoded 01/05/25 11:16) Diarrhea PFSH Medical History Osteoarthritis Morbid obesity Surgical History Hx of knee surgery Hx of hernia repair Family History Maternal Grandmother Ovarian cancer CHF (congestive heart failure) Other ADHD FH: mental illness Substance abuse Social History Housing: House Alcohol intake: current Alcohol intake frequency: 3 or more drinks per day Alcohol type: hard liquor Patient Tobacco Use Status: Former Tobacco user e-Cigarette/Vaping Use: Never Used Second Hand Smoke Exposure: Yes service: No Current occupational status: employed Current occupation: [employer] [place] Current occupational exposures/hazards: Yes Cognitive needs: No Hearing needs: No Vision needs: No Behavioral Health Assessment Weight Management Therapy Therapy Notes Details The patient is a 49-year-old female presenting for an initial behavioral health assessment as part of a surgical weight loss program. She was initially referred by her primary care provider. Presenting Concerns Referral Source WMP-Provider. Reason for referral Completion of behavioral health assessment as part of process for weight-loss surgery. Precipitating Event Obesity and new medical issues. Living Situation Current Living Situation Own At risk of losing current housing? No Satisfied with current living situation? Yes Comments Pt lives with her , her 21 y/o son and her cat. Food/Weight/Diet Expectations of change PT started the program at 328Lbs and reported her recent weight today 01/12 was 324Lbs. She gained weight after the weight check on 12/04, so when she started the meal plan she was 337Lbs. Initial goal is to lose 10% of her weight before surgery, which is about 28lbs. Minimum weight goal: 300lbs before surgery Patient goals are PT is implementing the following: Current meal plan: 2 plans, 1 for work days and other for days off. Exercise plan: Social History Family history and relationship PT is 21 years ago, and they have a 21 y/o child, Pt also have 31 y/o daughter from a previous relationship. Parents , she has a twin brother. Her son lives at home. Pt is close to her in-laws. Parental/Familial emergency physician obligations None reported. Developmental history and status speech therapy in childhood. Currently WNL. Social support , in laws. Community support None. Jainism/Spirituality Episcopalian. Cultural/Ethnic information White, . Legal Involvement and History Current or historical involvement with the legal system? None reported Education Highest grade completed Trade school after HS. Certified medical assistance. Preferred learning style Learn by doing Currently enrolled in educational program? No Interested in further educational program? No Educational Interests/Skills Healthcare. 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 ) Meaningful activities Reading, thomas art, cooking. Financial Situation Describe current financial situation Often struggles with finance Financial assistance? None Service Service? No Mental Health and Addiction Treatment Comments Alcohol: Daily, 1-2 mixed drinks, wisky and diet soda. Cigarettes/Tobacco: None. Quit in may 2019. Cannabis/Edibles: None. Current/Past addictive behavior concerns? No Psychiatric history The patient is not currently engaged in mental health treatment. She attended family counseling with her mother over 30 years ago but did not continue and is not aware of any formal psychiatric diagnoses. She reports a family history of depression and suicide attempts. The patient describes a longstanding history of low self-esteem, multiple traumatic life events, and symptoms consistent with depression. She expresses reluctance to pursue counseling, noting that it is difficult for her to talk about these issues. The patient began drinking alcohol around age 28 and, in recent years, has been drinking daily. She abstained for approximately two months following the onset of atrial fibrillation but has since resumed, identifying alcohol use as a coping mechanism for stress and unwinding after a long day. She denies ever experiencing a mental health crisis or requiring inpatient psychiatric care. There is no history or current concern regarding suicidal ideation, suicide attempts, self-harm, or risk of harm to others. Medical and Physical Health Summary Additional Medical History not covered in history None aditional. Sexual History concerns None reported. Physical exam in the last year? Yes Pain Screening Current pain? Yes Pain in the last few months? Yes Comments Knee and back pain. Today is 2-3 out of 10. Gets worse as the day goes. Medications Is the patient compliant with medications? Yes Does the patient have Parker Guardian in place? Not applicable Does the patient use complimentary health approaches? No Trauma/Abuse History History of trauma? Yes Questionnaires PHQ-9 Over the last 2 weeks, how often have you been bothered by any of the following problems? 1. Little interest or pleasure in doing things: more than half the days 2. Feeling down, depressed, or hopeless: more than half the days 3. Trouble falling or staying asleep, or sleeping too much: nearly every day 4. Feeling tired or having little energy: nearly every day 5. Poor appetite or overeating: not at all 6. Feeling bad about yourself - or that you are a failure or have let yourself or your family down: more than half the days 7. Trouble concentrating on things, such as reading the newspaper or watching television: not at all 8. Moving or speaking so slowly that other people could have noticed. Or the opposite - being so fidgety or restless that you have been moving around a lot more than usual: not at all 9. Thoughts that you would be better off or of hurting yourself in some way: not at all Total score: 12 Depression Screening Interpretation: Positive (From new PT pack completed on 12/01/24) Depression Screening Done: Yes Source: Developed by Drs. Sourav Rosa, Janelle Anderson, Dangelo Adan and colleagues, with an educational marissa from [employer] Binge Eating Scale Group 1 A. I don't feel self-conscious about my wt. or body size when I'm with others. B. I feel concerned about how I look to others, but it normally does not make me fell disappointed with myself C. I do get self-conscious about my appearance and wt. which makes me feel disappointed in myself. D. I feel very self-conscious about my wt. and frequently I feel intense shame and disgust for myself. I try to avoid social contacts because of my self- consciousness. Response Group 1: D Group 2 A. I don't have any difficulty eating slowly in the proper manner. B. Although I seem to gobble down foods, I don't end up feeling stuffed because of eating to much. C. At times, I tend to eat quickly and then, I feel uncomfortably full afterwards. D. I have the habit of bolting down my food, without really chewing it. When this happens I usually feel uncomfortably stuffed because I've eaten to much. Response Group 2: A Group 3 A. I feel capable to control my eating urges when I want to. B. I feel like I have failed to control my eating more than the average person. C. I feel utterly helpless when it comes to feeling in control of my eating urges. D. Because I feel so helpless about controlling my eating I have become very desperate about trying to get control. Response Group 3: A Group 4 A. I don't have the habit of eating when I'm bored. B. I sometimes eat when I'm bored, but often I'm able to get busy and get my mind off food. C. I have a regular habit of eating when I'm bored, but occasionally, I can use some other activity to get my mind off eating. D. I have a strong habit of eating when I'm bored. Nothing seems to help me breath the habit. Response Group 4: A Group 5 A. I'm usually physically hungry when I eat something. B. Occasionally, I eat something on impulse even though I really am not hungry. C. I have the regular habit of eating foods, that I might not really enjoy, to satisfy a hungry feeling even though physically, I don't need the food. D. Although I'm not physically hungry, I get a hungry feeling in my mouth that only seems to be satisfied when I eat a food, like sandwich, that fills my mouth. Sometimes, when I eat the food to satisfy my mouth hunger, I then spit the food out so I won't gain weight. Response Group 5: A Group 6 A. I don't feel any guilt or self-hate after I overeat. B. After I overeat, occasionally I feel guilt or self-hate. C. Almost all the time I experience strong guilt or self-hate after I overeat. Response Group 6: A Group 7 A. I don't lose total control of my eating when dieting even after periods when I overeat. B. Sometimes when I eat a forbidden food on a diet, I feel like I blew it and eat even more. C. Frequently, I have the habit of saying to myself, I've blown it now, why not go all the way, when I overeat on a diet. When that happens I eat more. D. I have a regular habit of starting a strict diets for myself but I break the diets by going on an eating binge. My life seems to be either a feast or famine. Response Group 7: A Group 8 A. I rarely eat so much food that I feel uncomfortably stuffed afterwards. B. Usually about once a month, I each such a quantity of food, I end up feeling very stuffed. C. I have regular periods during the month when I eat large amounts of food, ei ther at mealtime or at snacks. D. I eat so much food that I regularly feel quite uncomfortable after eating and sometimes a bit nauseous. Response Group 8: B Group 9 A. My level of calorie intake does not go up very high or go down very low on a regular basis. B. Sometimes after I overeat, I will try to reduce my caloric intake to almost nothing to compensate for the excess calories I've eaten. C. I have a regular habit of overeating during the night. It seems that my routine is not to be hungry in the morning but overeat in the evening. D. In my adult years, I have had week-long periods where I practically starve myself. This follows periods when I overeat. It seems I live a life of either feast or famine. Response Group 9: A Group 10 A. I usually am able to stop eating when I want to. I know when enough is enough. B. Every so often, I experience a compulsion to eat which I can't seem to control. C. Frequently, I experience strong urges to eat which I seem unable to control, but at other times I can control my eating urges. D. I feel incapable of controlling urges to eat. I have a fear of not being able to stop eating voluntarily. Response Group 10: A Group 11 A. I don't have any problem stopping eating when I feel full. B. I usually can stop eating when I feel full but occasionally overeat leaving me feeling uncomfortably stuffed. C. I have a problem stopping eating once I start and usually I feel uncomfortably stuffed after I eat a meal. D. Because I have a problem not being able to stop eating when I want, I sometimes have to induce vomiting to relieve my stuffed feeling. Response Group 11: A Group 12 A. I seem to eat just as much when I'm with others, Family social gatherings as when I'm by myself. B. Sometimes, when I'm with other persons, I don't eat as much as I want to eat because I'm self-conscious about my eating. C. Frequently, I eat only a small amount of food when others are present, because I'm very embarrassed about my eating. D. I feel so ashamed about overeating that I pick times to overeat when I know no one will see me. I feel like a closet eater. Response Group 12: A Group 13 A. I eat three meals a day with only an occasional between meal snack. B. I eat 3 meals a day, but I also normally snack between meals. C. When I am snacking heavily, I get in the habit of skipping regular meals. D. There are regular periods when I seem to be continually eating, with no planned meals. Response Group 13: A (2 meals) Group 14 A. I don't think much about trying to control unwanted eating urges. B. At least some of the time, I feel my thoughts are pre-occupied with trying to control my eating urges. C. I feel that frequently I spend much time thinking about how much I ate or about trying not to eat anymore. D. It seems to me that most of my waking hours are pre-occupied by thoughts about eating or not eating. I feel like I'm constantly struggling not to eat. Response Group 14: A Group 15 A. I don't think about food a great deal. B. I have strong craving for food but they last only for brief periods of time. C. I have days when I can't seem to think about anything else but food. D. Most of my days seem to be pre-occupied with thoughts about food. I feel like I live to eat. Response Group 15: A Group 16 A. I usually know whether or not I'm physically hungry. I take the right portion of food to satisfy me. B. Occasionally, I feel uncertain about knowing whether or not I'm physically hungry. A these times it's hard to know how much food I should take to satisfy me. C. Even though I might know how many calories I should eat, I don't have any idea what is a normal amount of food for me. Response Group 16: A Binge Eating Score: 4 Score less than 17 Minimal Risk Score between 18-26 Moderate Risk Score between 27-46 High Risk Assessment & Plan Assessment & Plan (1) Alcohol use: Code(s): F10.90 - Alcohol use, unspecified, uncomplicated (2) Adjustment disorder: Code(s): F43.20 - Adjustment disorder, unspecified Qualifiers: Adjustment disorder type: unspecified type Qualified Code(s): F43.20 - Adjustment disorder, unspecified Plan The patient was not cleared today as the assessment was not completed. The patient will return in 2-4 weeks to continue the evaluation. Next appointment: 01/26/2025 at 12pm, video [place] [address] Psy Diag Eval Patient Type New Diagnoses Alcohol use F10.90 Adjustment disorder, unspecified type F43.20 Adjustment disorder type: unspecified type Time Spent (min) 60
--- OUTSIDE RECORDS SUMMARY | 2025-01-12 12:39 | XMS_ITS | Encounter Summary ---
Author Organization [facility] Address [address] [place] [phone] Phone Care Team Providers Care Car Builder Name Role Phone Markus Murphy MD Primary Care Provider + Encounter Details Date Type Department Care Team (Late st Contact Info) Description 08/01/2020 Procedure Pass [address] [place] [address] Social History Tobacco Use Types Packs/Day Years [...] on filedocumented in this encounter Care Teams Car Builder Relationship Specialty Start Date End Date Markus Murphy MD [address] [place] [phone] PCP - General Family Medicine 08/01/20 documented as of this encounter Additional Source Comments The information contained in this document represents components of the legal health record. It is not the complete legal health record.[facility]
--- OUTSIDE RECORDS SUMMARY | 2025-01-12 12:39 | XMS_ITS | Encounter Summary ---
Author Organization [facility] Address [address] [facility] [address] [place] [phone] Phone Care Team Providers Care Manager Library Name Role Phone Markus Murphy MD Primary Care Provider + Encounter Details Date Type Department Care Team (Late st Contact Info) Description 08/01/2020 Ancillary Orders [facility],Outside Imaging [address] [place] [address] System, Provider Not In, [facility] [address] [address] Social History Tobacco Use Types Packs/Day Years [...] on filedocumented in this encounter Care Teams Manager Library Relationship Specialty Start Date End Date Markus Murphy MD [address] [place] [phone] PCP - General Family Medicine 08/01/20 documented as of this encounter Additional Source Comments The information contained in this document represents components of the legal health record. It is not the complete legal health record.[facility]
--- OUTSIDE RECORDS SUMMARY | 2025-01-12 12:39 | XMS_ITS | Clinical Summary ---
Author Organization [facility] Address [address] [facility] [address] [place] [address] Phone Care Team Providers Care Inspector Conveyor Line Name Role Phone Markus Murphy MD Primary [...] on file Insurance WORKERS [employer]ATION Care Teams Inspector Conveyor Line Relationship Specialty Start Date End Date Markus Murphy MD [address] [place] [phone] PCP - General Family Medicine 08/01/20 Additional Source Comments The information contained in this document represents components of the legal health record. It is not the complete legal health record.[facility]
--- OUTSIDE RECORDS SUMMARY | 2025-01-12 12:39 | XMS_ITS | Encounter Summary ---
Author Organization [facility] Address [address] [facility] [address] [place] [phone] Phone Care Team Providers Care Oxyacetylene Welder Name Role Phone Markus Murphy MD Primary Care Provider + Encounter Details Date Type Department Care Team (Late st Contact Info) Description 12/21/2020 Procedure Pass [place] Admitting Dept - Virtual Department [address] [place] [phone] Social History Tobacco Use Types Packs/Day Years [...] on filedocumented in this encounter Care Teams Oxyacetylene Welder Relationship Specialty Start Date End Date Markus Murphy MD [address] [place] [phone] PCP - General Family Medicine 08/01/20 documented as of this encounter Additional Source Comments The information contained in this document represents components of the legal health record. It is not the complete legal health record.[facility]
--- OUTSIDE RECORDS SUMMARY | 2025-01-12 12:40 | XMS_ITS | Encounter Summary ---
Author Organization [facility] Address [address] [facility] [address] [place] [phone] Phone Care Team Providers Care Life Skills Trainer Name Role Phone Markus Murphy MD Primary Care Provider + Encounter Details Date Type Department Care Team (Late st Contact Info) Description 08/01/2020 Ancillary Orders [facility],Outside Imaging [address] [place] [address] System, Provider Not In, [facility] [address] [address] Social History Tobacco Use Types Packs/Day Years [...] on filedocumented in this encounter Care Teams Life Skills Trainer Relationship Specialty Start Date End Date Markus Murphy MD [address] [place] [phone] PCP - General Family Medicine 08/01/20 documented as of this encounter Additional Source Comments The information contained in this document represents components of the legal health record. It is not the complete legal health record.[facility]
== END 2025-01-12 11:59 | disposition home or self-care (01) ==
LOC: HO.HBST 10:36
PROVIDERS: PCP Physician Assistant; Visit Provider Counselor Mental Health
DX: F10.90 Alcohol use, unspecified, uncomplicated (principal); F43.20 Adjustment disorder, unspecified
CPT/HCPCS: 90791

== ENCOUNTER 2025-01-18 10:13 | Day surgery (SDC) | payer OTHER, SELFPAY ==
--- OUTSIDE RECORDS SUMMARY | 2024-12-30 09:53 | XMS_ITS | Clinical Summary ---
Author Organization [facility] Address [address] [facility] [address] [place] [address] Phone Care Team Providers Care Fire Protection Engineer Name Role Phone Markus Murphy MD [...] on file Insurance WORKERS COMPENSATION Care Teams Fire Protection Engineer Relationship Specialty Start Date End Date Markus Murphy MD [address] [place] [phone] PCP - General Family Medicine 08/01/20 Additional Source Comments The information contained in this document represents components of the legal health record. It is not the complete legal health record.[facility]
--- OUTSIDE RECORDS SUMMARY | 2024-12-30 09:53 | XMS_ITS | Encounter Summary ---
Author Organization [facility] Address [address] [facility] [address] [place] [phone] Phone Care Team Providers Care Precision Lens Grinder Apprentice Name Role Phone Markus Murphy MD Primary Care Provider + Encounter Details Date Type Department Care Team (Late st Contact Info) Description 08/01/2020 Ancillary Orders [facility],Outside Imaging [address] [place] [address] System, Provider Not In, [facility] [address] [address] Social History Tobacco Use Types Packs/Day Years [...] on filedocumented in this encounter Care Teams Precision Lens Grinder Apprentice Relationship Specialty Start Date End Date Markus Murphy MD [address] [place] [phone] PCP - General Family Medicine 08/01/20 documented as of this encounter Additional Source Comments The information contained in this document represents components of the legal health record. It is not the complete legal health record.[facility]
--- OUTSIDE RECORDS SUMMARY | 2024-12-30 09:53 | XMS_ITS | Encounter Summary ---
Author Organization [facility] Address [address] [facility] [address] [place] [address] Phone Care Team Providers Care Customs Collector Name Role Phone Markus Murphy MD Primary Care Provider + Encounter Details Date Type Department Care Team (Late st Contact Info) Description 08/01/2020 Ancillary Orders [facility],Outside Imaging [address] [place] [address] System, Provider Not In, [facility] [address] [address] Social History Tobacco Use Types Packs/Day Years [...] on filedocumented in this encounter Care Teams Customs Collector Relationship Specialty Start Date End Date Markus Murphy MD [address] [place] [phone] PCP - General Family Medicine 08/01/20 documented as of this encounter Additional Source Comments The information contained in this document represents components of the legal health record. It is not the complete legal health record.[facility]
--- OUTSIDE RECORDS SUMMARY | 2024-12-30 09:53 | XMS_ITS | Encounter Summary ---
Author Organization [facility] Address [address] [place] [address] Phone Care Team Providers Care Cow Rider Name Role Phone Markus Murphy MD Primary Care Provider + Encounter Details Date Type Department Care Team (Late st Contact Info) Description 08/01/2020 Procedure Pass [address] [place] [address] Social History Tobacco Use Types Packs/Day Years [...] on filedocumented in this encounter Care Teams Cow Rider Relationship Specialty Start Date End Date Markus Murphy MD [address] [place] [address] PCP - General Family Medicine 08/01/20 documented as of this encounter Additional Source Comments The information contained in this document represents components of the legal health record. It is not the complete legal health record.[facility]
--- OUTSIDE RECORDS SUMMARY | 2024-12-30 09:53 | XMS_ITS | Encounter Summary ---
Author Organization [facility] Address [address] [facility] [address] [place] [address] Phone Care Team Providers Care Compressed Yeast Supervisor Name Role Phone Markus Murphy MD Primary Care Provider + Encounter Details Date Type Department Care Team (Late st Contact Info) Description 12/21/2020 Procedure Pass OR Admitting Dept - Virtual Department [address] [place] [address] Social History Tobacco Use Types Packs/Day Years [...] on filedocumented in this encounter Care Teams Compressed Yeast Supervisor Relationship Specialty Start Date End Date Markus Murphy MD [address] [place] [phone] PCP - General Family Medicine 08/01/20 documented as of this encounter Additional Source Comments The information contained in this document represents components of the legal health record. It is not the complete legal health record.[facility]
--- NOTE | 2025-01-13 13:42 | HO.ANESPROP2 ---
HPI - Anesthesia Eval Consult details Narrative: 49yo F for Upper Endoscopy BMI 60 Follows [facility] Cardiology for PAF (eliquis) - dx'd 05/2024. Stable at 08/2024 office visit Anesthesia Pre-Procedure Meds Is the patient on any of the following meds?: GLP1/DPP4 PMFSH Active Problems Active Problems: All Active Problems Morbid obesity (Acute) HLD (hyperlipidemia) (Acute) Morbid obesity with BMI of 60.0-69.9, adult (Acute) Nocturnal hypoxemia (Acute) TIERRA (obstructive sleep apnea) (Acute) Paroxysmal atrial fibrillation (Acute) Alcohol use disorder, mild, abuse (Acute) Annual physical exam (Acute) Osteoarthritis (Acute) Asthma (Acute) Cervical cancer screening (Acute) Breast cancer screening (Acute) Alcohol use (Acute) Class 3 obesity (Acute) Hypothyroid (Acute) DMII (diabetes mellitus, type 2) (Acute) HTN (hypertension) (Acute) Past Medical History Medical History HLD (hyperlipidemia) Hypothyroid DMII (diabetes mellitus, type 2) TIERRA (obstructive sleep apnea) Paroxysmal atrial fibrillation Asthma HTN (hypertension) Osteoarthritis Morbid obesity Family History Family History Maternal Grandmother Ovarian cancer CHF (congestive heart failure) Other ADHD FH: mental illness Substance abuse Surgical History Surgical History Hx of knee surgery Hx of hernia repair Social History Social History Housing: House Alcohol intake: current Alcohol intake frequency: 3 or more drinks per day Alcohol type: hard liquor Patient Tobacco Use Status: Former Tobacco user e-Cigarette/Vaping Use: Never Used Second Hand Smoke Exposure: Yes service: No Current occupational status: employed Current occupation: [employer] [place] Current occupational exposures/hazards: Yes Cognitive needs: No Hearing needs: No Vision needs: No Meds Allergies Allergy/AdvReac Type Severity Reaction Status Date / Time metformin AdvReac Intermediate Diarrhea Uncoded 01/05/25 11:16 Home Medications ?Medication ?Instructions ?Recorded ?Confirmed ?Last Taken ?Type levalbuterol HCl 1.25 mg/3 mL mg inhalation 06/06/24 01/05/25 Unknown History solution for nebulization [id number] 8 mg-folic 400 1 tab PO DAILY 09/02/24 01/05/25 Unknown History mcg-K 50 mcg-lutein 300 mcg tablet (Centrum Silver Women) Exam Pertinent Lab Results Pertinent Lab Results: Laboratory Tests 12/23/24 10:47 WBC 7.6 Hgb 14.1 Hct 41.4 Plt Count 304 Sodium 140 Potassium 3.5 Chloride 98 Carbon Dioxide 32 H BUN 15 Creatinine 0.67 Narrative Narrative: EKG 05/2024 Vent. Rate : 91 BPM Atrial Rate : 91 BPM P-R Int : 148 ms QRS Dur : 96 ms QT Int : 384 ms P-R-T Axes : 60 68 29 degrees QTcB Int : 472 ms Normal sinus rhythm Incomplete right bundle branch block Borderline ECG When compared with ECG of 22-Jun-2024 10:55, No significant change was found 06/28/2024-Holter study showed normal sinus rhythm with an average heart rate of 88 beats per minute, rare supraventricular and ventricular ectopies. 08/16/2024-patient underwent vasodilating myocardial perfusion study which showed normal perfusion. NM dougie perf SPECT rest & str IMPRESSION: 1. Myocardial perfusion imaging study shows normal myocardial perfusion. 2. Gated LVEF is 60%. 3. Transient ischemic dilatation not present. EKG revealed negative for ischemia. Assessment and Plan Assessment Anesthesia Assessment: Chart Reviewed
[2025-01-18 10:43] VITALS: BMI 59.1
[2025-01-18 10:54] VITALS: BP 112/67; PULSE 79; RESP 18; TEMP 36.3; O2SAT 93
[2025-01-18] MEDS: Lactated Ringers 1,000 ML 80 ML IVCONT (11:07)
[2025-01-18 11:13] LABS: Glucose, Whole Blood 140 mg/dL (60-115)
--- NOTE | 2025-01-18 12:32 | P.HPSUR_ITS ---
Pre-Procedural Eval Section A - 24 Hr Update-Section A only Date of Service: 01/18/25 The patient is an INPATIENT: No The patient has been examined within 24 hours of the surgical procedure. The History & Physical has been completed within 30 days and I have reviewed it.: Yes Section B - Complete if H&P > 30 days Chief Complaint: Morbid (severe) obesity due to excess calories Relevant Family History (Specify if Yes): No Relevant Social History: None Present Medications: None Medical History: No relevant PMH History of Previous Operations: No relevant previous surgery Allergies: Allergies Allergy/AdvReac Type Severity Reaction Status Date / Time metformin AdvReac Intermediate Diarrhea Uncoded 01/05/25 11:16 Review of Systems Sugical H&P ROS: Negative: Constitution, Cardiovascular, Respiratory, Neurologi mike, Psychiatric, Hem-Onc, Allergic/Immunologic, Gastrointestinal, Genitourinary, Musculoskeletal, Integumentary, Endocrine and Eyes/Ears/Nose/Throat Exam Surgical H&P Exam: Normal: HEENT, Normal: Heart, Normal: Lungs, Normal: Extremities, Normal: Abdomen, Normal: Skin and Normal: Neurological Plan Diagnosis/Plan: Unchanged (EGD to assess the stomach's anatomy. Risks of bleeding and perforation were discussed with the patient and she is in agreement with the plan.) I have reviewed the history and physical and performed a pertinent physical examination on my patient. No changes have occurred unless specified. Time Spent With Patient Time: Total time managing care of this patient today ____ minutes.
--- NOTE | 2025-01-18 12:33 | P.BOP_ITS ---
Brief Operative Note Date of Service: 01/18/25 Pre-op diagnosis: Morbid obesity Post-op diagnosis: same Procedure: PROCEDURE DATE: 01/18/2025 PREOPERATIVE DIAGNOSIS: Morbid obesity POSTOPERATIVE DIAGNOSIS: ?Same as above. 1) small diaphragmatic hernia, 2) gastritis PROCEDURE: Eahqcskz-enmdpc-okruuqdoghic with biopsies Surgeon: ?López Brewer M.D.. Ph.D. Single Pointed Operator: None ? Anesthesia: IV sedation Estimated blood loss: ?Minimal FINDINGS AND PROCEDURE: ? OPERATIVE INDICATIONS: ?The patient is a 49 year old female known to me who is interested in bariatric surgery. Based on this information I recommended an upper endoscopy to evaluate the patient's symptoms. Risks and complications of the surgery were discussed with the patient in advance particularly the possibility of perforation or bleeding that may require surgical intervention. The patient understood the risks and was in agreement with the plan. ? PROCEDURE: After informed consent was obtained by the patient, the patient was ?transferred to the Operating Room and was placed in the supine position.? After successful induction of IV sedation, a mouth block was inserted and the patient was placed in the left lateral decubitus position. An upper endoscopy was performed next, the oropharynx and esophagus appeared within the normal limits. There was a 2-3cm reducible hiatal hernia. The z-line was smooth. Two biopsies were obtained from the distal esophagus 2-3 cm proximal to the GE junction and two additional biopsies from the GE junction. The stomach was entered and it appeared to be of normal size. There was no gastritis. There was no stricture or ulcer. A biopsy was obtained from the gastric fundus and the antrum. No significant bleeding was noted from any of the biopsy sites. Retroflexion of the scope confirmed the presence of a small diaphragmatic hernia. The scope was then advanced into the duodenum which appeared to be normal as well. At that point the duodenum ?and the stomach were decompressed and the scope was withdrawn from the patient's mouth. The patient extubated and was transferred in stable condition to the Recovery Room for further care. I was present and performed all steps of the procedure. There were no residents to assist with this case. López Brewer M.D., Ph.D. Surgeon: Juan Brewer MD Anesthesia: MAC Was an Single Pointed Operator used for this Procedure?: No Estimated blood loss (mL): 0 IV fluids (mL): 400 Urine output (mL): 0 (No Fley to record output) Pathology: other (1) antrum x1, 2) fundus x1, 3) GE junction x2, 4) distal esophagus x2) Condition: stable Disposition: PACU
[2025-01-18 13:02] VITALS: BP 89/47; PULSE 66; RESP 18; TEMP 36.1; O2SAT 99
[2025-01-18 13:17] VITALS: BP 111/68; PULSE 66; RESP 12; TEMP 36.4; O2SAT 96
== END 2025-01-18 13:32 | disposition home or self-care (01) ==
PROVIDERS: PCP Physician Assistant; Visit Provider Surgery
PROC: 0DJ08ZZ Inspection of Upper Intestinal Tract, Via Natural or Artificial Opening Endoscopic (ICD-10-PCS; CPT 43235; principal; 2025-01-18 12:50)
DX: E66.01 Morbid (severe) obesity due to excess calories (principal); Z68.44 Body mass index [BMI] 60.0-69.9, adult; K29.40 Chronic atrophic gastritis without bleeding; K31.A13 Gastric intestinal metaplasia without dysplasia, involving the fundus; K44.9 Diaphragmatic hernia without obstruction or gangrene; I10 Essential (primary) hypertension; I48.0 Paroxysmal atrial fibrillation; E11.65 Type 2 diabetes mellitus with hyperglycemia; E78.2 Mixed hyperlipidemia; E03.9 Hypothyroidism, unspecified; M19.90 Unspecified osteoarthritis, unspecified site; Z79.01 Long term (current) use of anticoagulants; Z79.85 Long-term (current) use of injectable non-insulin antidiabetic drugs; Z79.84 Long term (current) use of oral hypoglycemic drugs; Z79.51 Long term (current) use of inhaled steroids; Z79.899 Other long term (current) drug therapy; Z88.8 Allergy status to other drugs, medicaments and biological substances; Z98.890 Other specified postprocedural states; Z87.891 Personal history of nicotine dependence
CPT/HCPCS: 43239; 82947; 88305; 88313; 88342; J2003; J2704

== ENCOUNTER → 2025-01-18 10:13 | Outpatient (BNV) | payer OTHER, SELFPAY | PROVIDERS: PCP Physician Assistant; Visit Provider Surgery | DX: E66.01 Morbid (severe) obesity due to excess calories (principal); Z68.44 Body mass index [BMI] 60.0-69.9, adult; K44.9 Diaphragmatic hernia without obstruction or gangrene | CPT/HCPCS: 43239 ==

== ENCOUNTER 2025-01-26 12:00 | Outpatient (AMB) | payer OTHER, SELFPAY ==
--- NOTE | 2025-01-26 12:05 | A.OFFWM_ITS ---
Intake Intake Visit Reasons: VIDEO Intake Part 2 *okay per [facility]* Allergies metformin Adverse Reaction (Intermediate, Uncoded 01/27/25 09:51) Diarrhea PFSH Medical History (Updated 01/19/25 @ 20:05 by Juan Brewer MD) Esophagitis determined by biopsy Menopause HLD (hyperlipidemia) Hypothyroid DMII (diabetes mellitus, type 2) TIERRA (obstructive sleep apnea) Paroxysmal atrial fibrillation Asthma HTN (hypertension) Osteoarthritis Morbid obesity Surgical History Hx of knee surgery Hx of hernia repair Family History Maternal Grandmother Ovarian cancer CHF (congestive heart failure) Other ADHD FH: mental illness Substance abuse Social History Housing: House Are you a primary in home caregiver to a significant other at home: No Do you presently have visiting nurse or other home services: No Alcohol intake: current Alcohol intake frequency: does not drink Alcohol type: hard liquor Patient Tobacco Use Status: Former Tobacco user e-Cigarette/Vaping Use: Never Used Second Hand Smoke Exposure: No service: No Current occupational status: employed 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 She was initially referred by her primary care provider. The patient reports difficulty adhering to her dietary plan during periods of long working hours, often forgetting to eat. She also acknowledges inconsistent engagement in physical activity. Additionally, she continues to consume alcohol daily. During the session, the patient appeared defensive when discussing her behaviors and challenges. Presenting Concerns Referral Source [facility]-Provider. Reason for referral Completion of behavioral health assessment as part of process for weight-loss surgery. Precipitating Event Obesity and new medical issues. Living Situation Current Living Situation Own At risk of losing current housing? No Satisfied with current living situation? Yes Comments Pt lives with her , her 21 y/o son and her cat. Food/Weight/Diet Expectations of change PT started the program at 328Lbs and reported her weight on 01/12 was 324Lbs and today 01/26/25 was 318Lbs She gained weight after the weight check on 12/04, so when she started the meal plan she was 337Lbs. Initial goal is to lose 10% of her weight before surgery, which is about 28lbs. Minimum weight goal: 300lbs before surgery PT is implementing the following: Current meal plan: 2 plans, 1 for work days and other for days off. Exercise plan: stationary bike. not consistent. scale: yes Communication w/ provider: . 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 Beverages: Coffee: 1-2 at day. Tea: occasionally when sick. Soda: Diet Coke but only with alcohol on it, Diet Pepsi. Juice: V8 couple times at week. ETOH: daily (1-2 glasses of Whiskey). History/Relationship with weight PT reports she has been overweigh since childhood. She recalls being 180Lbs in HS. In the last 10 years, the patient's Lowest weight was 265Lbs and highest 328Lbs History/Relationship with dieting slim fast, weight watchers, gym membership, self-diets. Binge Eating Do you frequently eat large amounts of food in short periods of time, not feeling physically hungry? No Do you feel out of control when you eat a large amount of food in a short period of time? No Do you eat large amounts of food rapidly and typically alone? No Night Eating Do you wake up at least once during the night to eat? No If you wake up in the night, do you find that it is necessary to eat something in order to fall back asleep? No Do you have little or no appetite in the morning and feel very hungry in the evening, often overeating between dinner and when you go to bed? No Social History Family history and relationship PT is 21 years ago, and they have a 21 y/o child, PT also have 31 y/o daughter from a previous relationship. Parents , she has a twin brother. Her son lives at home. Pt is close to her in-laws. 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 Developmental history and status speech therapy in childhood. Currently [facility]. Social support , in laws. Community support None. Shinto/Spirituality Rastafarian. Cultural/Ethnic information White, . Legal Involvement and History Current or historical involvement with the legal system? None reported Education Highest grade completed Trade school after HS. Certified medical assistance. Preferred learning style Learn by doing Currently enrolled in educational program? No Interested in further educational program? No Educational Interests/Skills Healthcare. Employment Employment Status [employer] ([employer] ) Meaningful activities Reading, thomas art, cooking. Financial Situation Describe current financial situation Often struggles with finance Financial assistance? None Service Service? No Mental Health and Addiction Treatment Comments Alcohol: Daily, 1-2 mixed drinks, wisky and diet soda. Cigarettes/Tobacco: None. Quit in may 2019. Cannabis/Edibles: None. Current/Past addictive behavior concerns? No Psychiatric history The patient is not currently engaged in mental health treatment. She attended family counseling with her mother over 30 years ago but did not continue and is not aware of any formal psychiatric diagnoses. She reports a family history of depression and suicide attempts. The patient describes a longstanding history of low self-esteem, multiple traumatic life events, and symptoms consistent with depression. She expresses reluctance to pursue counseling, noting that it is difficult for her to talk about these issues. The patient began drinking alcohol around age 28 and, in recent years, has been drinking daily. She abstained for approximately two months following the onset of atrial fibrillation but has since resumed, identifying alcohol use as a coping mechanism for stress and unwinding after a long day. She denies ever experiencing a mental health crisis or requiring inpatient psychiatric care. There is no history or current concern regarding suicidal ideation, suicide attempts, self-harm, or risk of harm to others. Medical and Physical Health Summary Additional Medical History not covered in history None aditional. Sexual History concerns None reported. Physical exam in the last year? Yes Pain Screening Current pain? Yes Pain in the last few months? Yes Comments Knee and back pain. Today is 2-3 out of 10. Gets worse as the day goes. Medications Is the patient compliant with medications? Yes Does the patient have Parker Guardian in place? Not applicable Does the patient use complimentary health approaches? No Trauma/Abuse History History of trauma? Yes Questionnaires PHQ-9 Over the last 2 weeks, how often have you been bothered by any of the following problems? 1. Little interest or pleasure in doing things: not at all 2. Feeling down, depressed, or hopeless: not at all 3. Trouble falling or staying asleep, or sleeping too much: not at all 4. Feeling tired or having little energy: several days 5. Poor appetite or overeating: not at all 6. Feeling bad about yourself - or that you are a failure or have let yourself or your family down: several days 7. Trouble concentrating on things, such as reading the newspaper or watching television: not at all 8. Moving or speaking so slowly that other people could have noticed. Or the opposite - being so fidgety or restless that you have been moving around a lot more than usual: not at all 9. Thoughts that you would be better off or of hurting yourself in some way: not at all Total score: 2 Depression Screening Interpretation: Negative Depression Screening Done: Yes 44863 - PHQ-9 Billing: Yes Source: Developed by Drs. Sourav Rosa, Janelle Anderson, Dangelo Adan and colleagues, with an educational marissa from [employer]. Binge Eating Scale Group 1 A. I don't feel self-conscious about my wt. or body size when I'm with others. B. I feel concerned about how I look to others, but it normally does not make me fell disappointed with myself C. I do get self-conscious about my appearance and wt. which makes me feel disappointed in myself. D. I feel very self-conscious about my wt. and frequently I feel intense shame and disgust for myself. I try to avoid social contacts because of my self- consciousness. Response Group 1: D Group 2 A. I don't have any difficulty eating slowly in the proper manner. B. Although I seem to gobble down foods, I don't end up feeling stuffed because of eating to much. C. At times, I tend to eat quickly and then, I feel uncomfortably full afterwards. D. I have the habit of bolting down my food, without really chewing it. When this happens I usually feel uncomfortably stuffed because I've eaten to much. Response Group 2: A Group 3 A. I feel capable to control my eating urges when I want to. B. I feel like I have failed to control my eating more than the average person. C. I feel utterly helpless when it comes to feeling in control of my eating urges. D. Because I feel so helpless about controlling my eating I have become very desperate about trying to get control. Response Group 3: A Group 4 A. I don't have the habit of eating when I'm bored. B. I sometimes eat when I'm bored, but often I'm able to get busy and get my mind off food. C. I have a regular habit of eating when I'm bored, but occasionally, I can use some other activity to get my mind off eating. D. I have a strong habit of eating when I'm bored. Nothing seems to help me breath the habit. Response Group 4: A Group 5 A. I'm usually physically hungry when I eat something. B. Occasionally, I eat something on impulse even though I really am not hungry. C. I have the regular habit of eating foods, that I might not really enjoy, to satisfy a hungry feeling even though physically, I don't need the food. D. Although I'm not physically hungry, I get a hungry feeling in my mouth that only seems to be satisfied when I eat a food, like sandwich, that fills my mouth. Sometimes, when I eat the food to satisfy my mouth hunger, I then spit the food out so I won't gain weight. Response Group 5: A Group 6 A. I don't feel any guilt or self-hate after I overeat. B. After I overeat, occasionally I feel guilt or self-hate. C. Almost all the time I experience strong guilt or self-hate after I overeat. Response Group 6: A Group 7 A. I don't lose total control of my eating when dieting even after periods when I overeat. B. Sometimes when I eat a forbidden food on a diet, I feel like I blew it and eat even more. C. Frequently, I have the habit of saying to myself, I've blown it now, why not go all the way, when I overeat on a diet. When that happens I eat more. D. I have a regular habit of starting a strict diets for myself but I break the diets by going on an eating binge. My life seems to be either a feast or famine. Response Group 7: A Group 8 A. I rarely eat so much food that I feel uncomfortably stuffed afterwards. B. Usually about once a month, I each such a quantity of food, I end up feeling very stuffed. C. I have regular periods during the month when I eat large amounts of food, either at mealtime or at snacks. D. I eat so much food that I regularly feel quite uncomfortable after eating and sometimes a bit nauseous. Response Group 8: B Group 9 A. My level of calorie intake does not go up very high or go down very low on a regular basis. B. Sometimes after I overeat, I will try to reduce my caloric intake to almost nothing to compensate for the excess calories I've eaten. C. I have a regular habit of overeating during the night. It seems that my routine is not to be hungry in the morning but overeat in the evening. D. In my adult years, I have had week-long periods where I practically starve myself. This follows periods when I overeat. It seems I live a life of either feast or famine. Response Group 9: A Group 10 A. I usually am able to stop eating when I want to. I know when enough is enough. B. Every so often, I experience a compulsion to eat which I can't seem to control. C. Frequently, I experience strong urges to eat which I seem unable to control, but at other times I can control my eating urges. D. I feel incapable of controlling urges to eat. I have a fear of not being able to stop eating voluntarily. Response Group 10: A Group 11 A. I don't have any problem stopping eating when I feel full. B. I usually can stop eating when I feel full but occasionally overeat leaving me feeling uncomfortably stuffed. C. I have a problem stopping eating once I start and usually I feel uncomfortably stuffed after I eat a meal. D. Because I have a problem not being able to stop eating when I want, I sometimes have to induce vomiting to relieve my stuffed feeling. Response Group 11: A Group 12 A. I seem to eat just as much when I'm with others, Family social gatherings as when I'm by myself. B. Sometimes, when I'm with other persons, I don't eat as much as I want to eat because I'm self-conscious about my eating. C. Frequently, I eat only a small amount of food when others are present, b ecause I'm very embarrassed about my eating. D. I feel so ashamed about overeating that I pick times to overeat when I know no one will see me. I feel like a closet eater. Response Group 12: A Group 13 A. I eat three meals a day with only an occasional between meal snack. B. I eat 3 meals a day, but I also normally snack between meals. C. When I am snacking heavily, I get in the habit of skipping regular meals. D. There are regular periods when I seem to be continually eating, with no planned meals. Response Group 13: A (2 meals) Group 14 A. I don't think much about trying to control unwanted eating urges. B. At least some of the time, I feel my thoughts are pre-occupied with trying to control my eating urges. C. I feel that frequently I spend much time thinking about how much I ate or about trying not to eat anymore. D. It seems to me that most of my waking hours are pre-occupied by thoughts about eating or not eating. I feel like I'm constantly struggling not to eat. Response Group 14: A Group 15 A. I don't think about food a great deal. B. I have strong craving for food but they last only for brief periods of time. C. I have days when I can't seem to think about anything else but food. D. Most of my days seem to be pre-occupied with thoughts about food. I feel like I live to eat. Response Group 15: A Group 16 A. I usually know whether or not I'm physically hungry. I take the right portion of food to satisfy me. B. Occasionally, I feel uncertain about knowing whether or not I'm physically hungry. A these times it's hard to know how much food I should take to satisfy me. C. Even though I might know how many calories I should eat, I don't have any idea what is a normal amount of food for me. Response Group 16: A Binge Eating Score: 4 Score less than 17 Minimal Risk Score between 18-26 Moderate Risk Score between 27-46 High Risk Assessment & Plan Assessment & Plan (1) Alcohol use: Code(s): F10.90 - Alcohol use, unspecified, uncomplicated (2) Trauma and stressor-related disorder: Code(s): F43.9 - Reaction to severe stress, unspecified (3) Pre-bariatric surgery psychological evaluation: Code(s): Z71.89 - Other specified counseling Plan Although there are no immediate emotional or psychological risks that would pre clude the client from proceeding with weight-loss surgery, her daily alcohol consumption remains a significant concern in the context of surgical candidacy. The client acknowledges the need to discontinue alcohol use prior to surgery and has been informed that laboratory testing will be required to confirm sobriety before proceeding. She expressed ambivalence about stopping alcohol, stating she will do so when she feels ready. Additionally, the client will require ongoing support to improve adherence to the recommended meal and exercise plans to achieve steady preoperative weight loss. This provider will update and consult with the surgical team regarding the clearance process. The client will f/up for reassessment at next visit and she may be submitted for insurance approval when the surgeon determines she is an appropriate candidate. The client is scheduled to return for a behavioral health follow-up in approximately two months, as this provider will be out of the office in [facility]. * Next appointment: 03/23/25 at 14:00. Telehealth Telehealth [facility]health [facility] Location of provider rendering services: other (Home office. [place], [place]) Location of patient: address on file Patient Identification confirmed using: Name, : Yes Telehealth method: video Patient verbally consented to treatment: Yes Patient verbally consented to billing insurance company: Yes Patient informed of any privacy concerns related to visit: Yes Minutes spent on Phone/Video with Pt.: 45 [place] [address] Tele Psytx 45 mins Patient Type Established Diagnoses Alcohol use F10.90 Trauma and stressor-related disorder F43.9 Pre-bariatric surgery psychological evaluation Z71.89 Additional Codes PHQ-9 - 64238 - PHQ-9 Billing: Yes ([id number]) Time Spent (min) 45
== END 2025-01-26 15:00 | disposition home health service (06) ==
LOC: HO.HBST 12:42
PROVIDERS: PCP Physician Assistant; Visit Provider Counselor Mental Health
DX: F10.90 Alcohol use, unspecified, uncomplicated (principal); F43.9 Reaction to severe stress, unspecified; Z71.89 Other specified counseling
CPT/HCPCS: 90834

== ENCOUNTER 2025-01-27 09:44 | Outpatient (AMB) | payer OTHER, SELFPAY ==
--- NOTE | 2025-01-27 09:47 | A.OFFVIS_ITS ---
Vital Signs 01/27/25 09:48 Height 5 ft 2 in Weight 319 lb BMI 58.3 BP 102/60 Blood Pressure Location Lt radial Position Sitting Pulse 84 Pulse Source Pulse Oximeter Pulse Oximetry (%) 97 Oxygen Delivery Method Room Air Intake Visit Reasons: Obstructive sleep apnea Allergies metformin Adverse Reaction (Intermediate, Uncoded 01/27/25 09:51) Diarrhea HPI HPI Obstructive sleep apnea: Details: Felicita is a pleasant 49 year old female, former smoker, with underlying TIERRA, atrial fibrillation, asthma, HTN and DMII. She was initially referred by cardiology after PSG 09/2024 revealed moderate TIERRA, AHI 21.8 with mild nocturnal hypoxemia, <88% for 7.9 minutes, average oxygen saturation 92%, lowest 79%. At the last visit she was started on BiPAP therapy 16/12 cmH2O based on recommendations for titration study. Today she presents to review compliance report. Of note, patient working towards weight loss through weight management, losing 17lbs and motivated to continue. At this time, her asthma is well controlled on current regimen, managed by PCP. [facility] Medical History (Updated 01/19/25 @ 20:05 by Juan Brewer MD) Esophagitis determined by biopsy Menopause HLD (hyperlipidemia) Hypothyroid DMII (diabetes mellitus, type 2) TIERRA (obstructive sleep apnea) Paroxysmal atrial fibrillation Asthma HTN (hypertension) Osteoarthritis Morbid obesity Surgical History Hx of knee surgery Hx of hernia repair Family History Maternal Grandmother Ovarian cancer CHF (congestive heart failure) Other ADHD FH: mental illness Substance abuse Social History Housing: House Are you a primary director career services to a significant other at home: No Do you presently have visiting nurse or other home services: No Alcohol intake: current Alcohol intake frequency: does not drink Alcohol type: hard liquor Patient Tobacco Use Status: Former Tobacco user e-Cigarette/Vaping Use: Never Used Second Hand Smoke Exposure: No service: No Current occupational status: employed Current occupation: [employer] [place] Current occupational exposures/hazards: Yes Cognitive needs: No Hearing needs: No Vision needs: No Review of Systems Const Denies chills, Denies excessive sweating, Denies fever(s), Denies headache(s) and Denies night sweats Eyes Denies dry eyes, Denies irritation and Denies itchy eyes ENT Reports Normal hearing present, Denies headache(s), Denies nasal congestion, Denies nasal discharge, Denies post nasal drip and Denies sore throat Card Denies chest pain, Denies chest pain at rest, Denies chest pain with activity, Denies claudication, Denies leg edema, Denies dyspnea, Denies dyspnea on exertion, Denies orthopnea and Denies paroxysmal nocturnal dyspnea Resp Denies chest congestion, Denies cough, Denies excessive phlegm production, Denies pain on inspiration, Denies pain with cough, Denies dyspnea, Denies dyspnea on exertion, Denies stridor and Denies wheezing Musc Denies myalgias Neuro Reports Normal hearing present and Denies headache(s) Endo Denies excessive sweating Kendall/Lymph Denies lymphadenopathy Aller/Immun Denies itchy eyes, Denies seasonal rhinorrhea and Denies wheezing Physical Exam Vital Signs: Last Vital Signs Pulse 84 01/27/25 09:48 BP 102/60 01/27/25 09:48 Pulse Ox 97 01/27/25 09:48 Oxygen Delivery Method Room Air 01/27/25 09:48 BMI result Body Mass Index 58.3 Const General: cooperative, healthy appearing, comfortable, no acute distress, well developed and alert Nutritional Appearance: obese Orientation/consciousness: patient oriented x3 Limitations: no limitations HEENT Head: Yes normal to inspection, Yes normocephalic and Yes atraumatic Ears: hearing grossly normal bilaterally and external ears normal Eyes General: appearance normal, both eyes and all related structures Eyelids: Yes eyelids normal Sclerae: sclerae normal EOM: EOMs intact bilaterally Neck Neck: Yes normal visual inspection and Yes no lymphadenopathy Lymphatic: no lymphadenopathy noted Chest Chest palpation & inspection: normal inspection of the chest Resp Effort & Inspection: normal respiratory effort, able to speak in complete sentences, no audible wheezes, no cough, no stridor, not tachypneic, no tripod positioning and no use of accessory muscles Auscultation: clear to auscultation bilaterally Cardio Jugular venous distension: no JVD Rate: regular rate Rhythm: regular rhythm Skin Other: warm, dry General skin exam: no rashes or lesions noted Neuro General: patient oriented x3 Cranial nerves: Yes Normal hearing present Cognition (Neuro): normal cognition Gait exam (Neuro): Normal gait present Extrem General: Yes normal to inspection, Yes capillary refill normal, Yes no clubbing, cyanosis or edema and Yes no pedal edema Psych Appearance: grossly normal and well kempt Speech and movement: Normal speech and movement present and Clear speech present Affect: normal affect Attitude: cooperative Thought process: Normal thought process present Thought content: Normal thought content present Insight: Good insight present (Psych) Judgement: Good judgement present (Psych) Assessment & Plan Assessment & Plan (1) TIERRA (obstructive sleep apnea): Code(s): G47.33 - Obstructive sleep apnea (adult) (pediatric) Category: Medical (2) Nocturnal hypoxemia: Code(s): G47.34 - Idiopathic sleep related nonobstructive alveolar hypoventilation Category: Medical Plan Reviewed compliance report for the last 30 days which demonstrates greater than 4 hours of use for 80% of the time, AHI 0.3 with minimal leaking. Although compliance report reflects good use patient has had challenges with mask and overall comfort leading to disruptions in sleep. Discussed importance of reaching out to [employer] to obtain an alternative mask trial to improve overall compliance. Will send for overnight oximetry to ensure resolution of nocturnal hypoxemia with use of BiPAP. At this time patient reports good control of asthma, she is aware to call if symptoms change. All questions were answered and patient is in agreement of plan. Will follow up 3 months or sooner if needed. Orders: Orders Overnight Pulse Oximetry Today G47.34 - Idiopathic sleep related nonobstructive alveolar hypoventilation Coding Level of Care Code Est Pt Level 4 (01369) Diagnoses TIERRA (obstructive sleep apnea) G47.33 Nocturnal hypoxemia G47.34
[2025-01-27 09:48] VITALS: BP 102/60; PULSE 84; O2SAT 97; BMI 58.3
--- OUTSIDE RECORDS SUMMARY | 2025-01-27 10:24 | XMS_ITS | Encounter Summary ---
Author Organization Loc[facility] Address [address] [facility] [address] [place] [phone] Phone Care Team Providers Care Direct Support Professional Home Health Name Role Phone Markus Murphy MD Primary Care Provider + Encounter Details Date Type Department Care Team (Late st Contact Info) Description 12/21/2020 Procedure Pass OR Admitting Dept - Virtual Department [address] [place] [phone] Social History Tobacco Use Types Packs/Day Years [...] on filedocumented in this encounter Care Teams Direct Support Professional Home Health Relationship Specialty Start Date End Date Markus Murphy MD [address] [place] [phone] PCP - General Family Medicine 08/01/20 documented as of this encounter Additional Source Comments The information contained in this document represents components of the legal health record. It is not the complete legal health record.[facility]
--- OUTSIDE RECORDS SUMMARY | 2025-01-27 10:24 | XMS_ITS | Encounter Summary ---
Author Organization [facility] Address [address] [facility] [address] [place] [address] Phone Care Team Providers Care Certified Solid Waste Facility Operator Name Role Phone Markus Murphy MD Primary Care Provider + Encounter Details Date Type Department Care Team (Late st Contact Info) Description 08/01/2020 Ancillary Orders [facility],Outside Imaging [address] [place] [address] System, Provider Not In, [facility] [address] [address] Social History Tobacco Use Types Packs/Day Years [...] on filedocumented in this encounter Care Teams Certified Solid Waste Facility Operator Relationship Specialty Start Date End Date Markus Murphy MD [address] [place] [phone] PCP - General Family Medicine 08/01/20 documented as of this encounter Additional Source Comments The information contained in this document represents components of the legal health record. It is not the complete legal health record.[facility]
--- OUTSIDE RECORDS SUMMARY | 2025-01-27 10:24 | XMS_ITS | Encounter Summary ---
Author Organization [facility] Address [address] [place] [address] Phone Care Team Providers Care Ship Boat Or Barge Mate Name Role Phone Markus Murphy MD Primary Care Provider + Encounter Details Date Type Department Care Team (Late st Contact Info) Description 08/01/2020 Procedure Pass [address] [place] [address] Social History Tobacco Use Types Packs/Day Years [...] on filedocumented in this encounter Care Teams Ship Boat Or Barge Mate Relationship Specialty Start Date End Date Markus Murphy MD [address] [place] [phone] PCP - General Family Medicine 08/01/20 documented as of this encounter Additional Source Comments The information contained in this document represents components of the legal health record. It is not the complete legal health record.[facility]
--- OUTSIDE RECORDS SUMMARY | 2025-01-27 10:24 | XMS_ITS | Clinical Summary ---
Author Organization [facility] Address [address] [facility] [address] [place] [address] Phone Care Team Providers Care Beef Selector Name Role Phone Markus Murphy MD Primary [...] on file Insurance WORKERS COMPENSATION Care Teams Beef Selector Relationship Specialty Start Date End Date Markus Murphy MD [address] [place] [phone] PCP - General Family Medicine 08/01/20 Additional Source Comments The information contained in this document represents components of the legal health record. It is not the complete legal health record.[facility]
--- OUTSIDE RECORDS SUMMARY | 2025-01-27 10:24 | XMS_ITS | Encounter Summary ---
Author Organization [facility] Address [address] [facility] [address] [place] [phone] Phone Care Team Providers Care Bread Slicer Machine Name Role Phone Markus Murphy MD Primary Care Provider + Encounter Details Date Type Department Care Team (Late st Contact Info) Description 08/01/2020 Ancillary Orders [facility],Outside Imaging [address] [place] [address] System, Provider Not In, [facility] [address] [address] Social History Tobacco Use Types Packs/Day Years [...] on filedocumented in this encounter Care Teams Bread Slicer Machine Relationship Specialty Start Date End Date Markus Murphy MD [address] [place] [phone] PCP - General Family Medicine 08/01/20 documented as of this encounter Additional Source Comments The information contained in this document represents components of the legal health record. It is not the complete legal health record.[facility]
== END 2025-01-27 10:12 | disposition home or self-care (01) ==
LOC: HO.HPSW 09:45
PROVIDERS: PCP Physician Assistant; Visit Provider Nurse Practitioner Family
DX: G47.33 Obstructive sleep apnea (adult) (pediatric) (principal); G47.34 Idiopathic sleep related nonobstructive alveolar hypoventilation
CPT/HCPCS: 99214

== ENCOUNTER → 2025-01-27 09:44 | Outpatient (BNVA) | payer OTHER, SELFPAY | PROVIDERS: PCP Physician Assistant; Visit Provider Nurse Practitioner Family | DX: G47.34 Idiopathic sleep related nonobstructive alveolar hypoventilation (principal) | CPT/HCPCS: 99212 ==

== ENCOUNTER 2025-02-23 08:35 | Outpatient (REF) | payer OTHER, SELFPAY ==
--- NOTE | ~2025-02-23 | US_ITS ---
EXAMINATION: US COMPLETE ABDOMEN WITH LIVER ELASTOGRAPHY CLINICAL INFORMATION: Obesity. COMPARISON: None available. TECHNIQUE: Real-time imaging of the abdominal viscera. Noninvasive ultrasound liver fibrosis assessment is performed using Maddy ElastPQ point quantification shear wave elastography (pSWE) with a C5-2 MHz transducer. Multiple elastography samples are obtained. FINDINGS: As per technologist note, limited exam due to patient body habitus. PANCREAS: The visualized pancreatic head and body are normal in appearance. The remainder of the pancreas is obscured from visualization by the overlying bowel gas. ABDOMINAL AORTA: No aortic aneurysm is seen. INFERIOR VENA CAVA: Visualized portions are normal. LIVER: The liver demonstrates normal size, contour and minimally increased diffuse echogenicity. No focal lesion or intrahepatic biliary duct dilatation. The right lobe measures 17.5 cm in length. The left lobe measures 9.2 cm in length. Portal flow is towards the liver (hepatopetal). Shear wave liver elastography median stiffness is 1.52 m/s (reference: normal median stiffness is 1.3 m/s or less). IQR/median stiffness to assess sampling precision is 0.06 (reference: good quality data set is IQR/median stiffness of 0.15 or less). This indicates a good quality data set. GALLBLADDER: The gallbladder is physiologically distended without evidence of stones, sludge, polyps, wall thickening or pericholecystic fluid. COMMON BILE DUCT: Normal in caliber measuring 0.3 cm in diameter. RIGHT KIDNEY: No hydronephrosis. No renal calculi or focal parenchymal lesions. The kidney measures 10.7 cm in maximum dimension. LEFT KIDNEY: No hydronephrosis. No renal calculi or focal parenchymal lesions. The kidney measures 11.5 cm in maximum dimension. SPLEEN: Unremarkable. The spleen measures 11.9 cm in maximum dimension. FREE FLUID: None seen. US/US abdomen comp w elastography IMPRESSION: 1. Minimally increased parenchymal echogenicity of the liver, indicating with mild steatosis. No focal liver lesion or intrahepatic biliary dilatation. 2. Liver elastography: In the absence of other known clinical signs, measurements rule out compensated advanced chronic liver disease. If there are known clinical signs, further testing may be needed for confirmation. 3. Normal gallbladder and bile ducts. 4. Normal kidneys and spleen. REFERENCE: Society of Radiologists in Ultrasound Liver Stiffness Thresholds (2020): LIVER STIFFNESS THRESHOLDS: *Liver Stiffness equal or less than 1.3 m/s: High probability of being normal. *Liver Stiffness less than 1.7 m/s: In the absence of other known clinical signs, rules out compensated advanced chronic liver disease. *Liver Stiffness 1.7-2.1 m/s: Suggestive of compensated advanced chronic liver disease but need further test for confirmation. *Liver Stiffness over 2.1 m/s: Rules in compensated advanced chronic liver disease. *Liver Stiffness over 2.4 m/s: Suggestive of clinically significant portal hypertension. QUALITY OF DATA SET: *IQR/Median value equal or less than 0.15 implies a quality data set. *IQR/Median value over 0.15 implies a poor quality data set. SIGNIFICANT CHANGE FROM PRIOR EXAM: Significant change if liver stiffness measurement is 10% or greater from prior exam. OTHER CONSIDERATIONS: The stage of liver fibrosis may be overestimated in the setting of acute hepatitis, liver inflammation, elevated liver function tests, hepatic vascular congestion, obstructive cholestasis, non-fasting state, and infiltrative diseases such as amyloidosis and lymphoma. In some patients with NAFLD, the liver stiffness thresholds for compensated advanced chronic liver disease may be lower. In causes other than viral hepatitis and NAFLD, liver stiffness thresholds are not well established. Electronically signed by: Vinny Angela MD 02/23/2025 09:15 AM [facility] [place]
== END 2025-02-23 08:36 | disposition home or self-care (01) ==
LOC: HO.US 08:35
PROVIDERS: PCP Physician Assistant; Visit Provider Surgery
DX: Z01.818 Encounter for other preprocedural examination (principal); E78.2 Mixed hyperlipidemia; I10 Essential (primary) hypertension; E66.01 Morbid (severe) obesity due to excess calories; E03.9 Hypothyroidism, unspecified; E11.65 Type 2 diabetes mellitus with hyperglycemia; I48.0 Paroxysmal atrial fibrillation
CPT/HCPCS: 36415; 76700; 76981; 80307; 99212

== ENCOUNTER → 2025-02-23 08:42 | Outpatient (BNV) | payer OTHER, SELFPAY | PROVIDERS: PCP Physician Assistant; Visit Provider Radiology Diagnostic Radiology | DX: E66.01 Morbid (severe) obesity due to excess calories (principal); Z68.43 Body mass index [BMI] 50.0-59.9, adult | CPT/HCPCS: 76700 ==

== ENCOUNTER 2025-02-23 13:43 | Outpatient (AMB) | payer OTHER, SELFPAY ==
--- NOTE | 2025-02-23 13:48 | A.OFFVIS_ITS ---
Vital Signs 02/23/25 13:49 Height 5 ft 2 in Weight 305 lb 2 oz BMI 55.8 BMI Reason not done Patient refused/unable BP 124/62 Blood Pressure Location Lt brachial Position Sitting Pulse 99 Pulse Source Pulse Oximeter Intake Visit Reasons: 6m follow up Varitype Operator Required: No Accompanied by: Self / Same As Patient Allergies metformin Adverse Reaction (Intermediate, Uncoded 01/27/25 09:51) Diarrhea Medication List - Last Reconciled 02/23/25 by Eduard Felix NP albuterol sulfate 90 mcg/actuation (Ventolin HFA) 1 puff inhalation Q6H 30 days apixaban (Eliquis) 5 mg PO BID 90 days blood sugar diagnostic (FreeStyle Lite Strips) 3 times a day blood-glucose meter (FreeStyle [place] Lite kit) As directed- once daily budesonide 180 mcg/actuation (Pulmicort Flexhaler) 1 inh inhalation BID 30 days docusate sodium (Colace) 400 mg PO DAILY glyburide 2.5 mg PO DAILY 60 days hydrochlorothiazide 50 mg PO DAILY 90 days lancets (FreeStyle Lancets) As directed- once daily levalbuterol HCl mg inhalation levothyroxine 75 mcg PO DAILY losartan 50 mg PO DAILY 90 days metoprolol succinate ER 50 mg PO DAILY 90 days pyfiyons-ufh-toog-FA-vit K-lut 8 mg iron-400 mcg-50 mcg (Centrum Silver Women) 1 tab PO DAILY psyllium husk (Metamucil) 1.6 grams PO DAILY tirzepatide (Mounjaro) 7.5 mg (0.5 mL) subcut QWEEK HPI Comments Details: This is a 50-year-old female patient coming in for a follow-up visit. Patient with a history of hypertension, hyperlipidemia, diabetes, AFib on Eliquis, and obesity. Patient states that recently patient had COVID during which time patient had some shortness of breath otherwise has been feeling well overall without any cardiac symptoms of exertional chest pain, shortness of breath, palpitations, dizziness, orthopnea, PND, leg edema, presyncope or syncope. Patient is reporting compliance with all her medications. Patient states that she has been back on the Mounjaro and is seeing weight management for bariatric surgery. Patient has lost about 30 lb and is trying to stay active. [facility] Medical History (Updated 02/23/25 @ 14:21 by Eduard Felix NP) HLD (hyperlipidemia) Esophagitis determined by biopsy Menopause Hypothyroid DMII (diabetes mellitus, type 2) TIERRA (obstructive sleep apnea) Paroxysmal atrial fibrillation Asthma HTN (hypertension) Osteoarthritis Morbid obesity Surgical History Hx of knee surgery Hx of hernia repair Family History Maternal Grandmother Ovarian cancer CHF (congestive heart failure) Other ADHD FH: mental illness Substance abuse Social History Housing: House Are you a primary progressive care unit registered nurse to a significant other at home: No Do you presently have visiting nurse or other home services: No Alcohol intake: current Alcohol intake frequency: does not drink Alcohol type: hard liquor Patient Tobacco Use Status: Former Tobacco user e-Cigarette/Vaping Use: Never Used Second Hand Smoke Exposure: No service: No Current occupational status: employed Current occupation: [employer] [place] Current occupational exposures/hazards: Yes Cognitive needs: No Hearing needs: No Vision needs: No Review of Systems Const Denies daytime sleepiness, Denies difficulty sleeping, Denies snoring, Denies stops breathing during sleep and Denies weakness Card Denies chest pain, Denies rapid heart rate, Denies irregular heart rhythm, De nies claudication, Denies leg edema, Denies lightheadedness, Denies palpitations, Denies dyspnea, Denies dyspnea on exertion, Denies orthopnea, Denies paroxysmal nocturnal dyspnea and Denies slow heart rate Resp Denies cough, Denies dyspnea, Denies dyspnea on exertion and Denies snoring GI Reports no additional complaints, Denies hematochezia, Denies change in stool character and Denies dyspepsia Musc Denies abnormal gait, Denies muscle weakness and Denies numbness Neuro Denies abnormal gait, Denies numbness and Denies weakness Endo Denies palpitations Physical Exam Vital Signs: Last Vital Signs Pulse 99 02/23/25 13:49 BP 124/62 02/23/25 13:49 BMI result Body Mass Index 55.8 Const General: cooperative, healthy appearing, comfortable and no acute distress Orientation/consciousness: patient oriented x3 HEENT Head: Yes normal to inspection Neck Neck: Yes normal visual inspection, Yes trachea midline and Yes supple Chest Chest palpation & inspection: normal inspection of the chest Resp Effort & Inspection: normal respiratory effort Auscultation: clear to auscultation bilaterally, no crackles, no rales, no rhonchi and no wheezes Cardio Jugular venous distension: no JVD Palpation: normal PMI Rate: regular rate Rhythm: regular rhythm Heart sounds: S1 normal heart sound present, S2 normal heart sound present, no click, no gallops, no murmurs and no rubs Peripheral pulses: Peripheral pulses 2+ throughout GI Inspection: Yes normal to inspection Palpation (GI): Soft to palpation Auscultation: normal bowel sounds Skin General skin exam: no rashes or lesions noted Neuro General: patient oriented x3 Extrem General: Yes normal to inspection, No no pedal edema and No calf tenderness Psych Appearance: grossly normal Mental Status: mental status grossly normal Speech and movement: Normal speech and movement present Assessment & Plan Assessment & Plan (1) Paroxysmal atrial fibrillation: Code(s): I48.0 - Paroxysmal atrial fibrillation Category: Medical Plan: 06/01/2024-echo study showed a normal LV systolic function with an ejection fraction between 60-65%. 06/28/2024-Holter study showed normal sinus rhythm with an average heart rate of 88 beats per minute, rare supraventricular and ventricular ectopies. 08/16/2024-patient underwent vasodilating myocardial perfusion study which showed normal perfusion. Clinically stable and without any cardiac symptoms. Kevin Vasc risk score of at least 3. Continue Eliquis for full anticoagulation. No reported signs of bleeding. Continue metoprolol for rate control. Patient has a mobile felisha monitoring her AFib and patient states that this has been stable. (2) TIERRA (obstructive sleep apnea): Code(s): G47.33 - Obstructive sleep apnea (adult) (pediatric) Category: Medical Plan: Continue CPAP therapy. Followed by pulmonology. (3) HTN (hypertension): Code(s): I10 - Essential (primary) hypertension Category: Medical Qualifiers: Hypertension type: primary hypertension Qualified Code(s): I10 - Essential (primary) hypertension Plan: Blood pressure is well-controlled. Continue current regimen. Advised monitoring blood pressures at home with a goal of less than 130/80. (4) HLD (hyperlipidemia): Code(s): E78.5 - Hyperlipidemia, unspecified Category: Medical Qualifiers: Hyperlipidemia type: mixed hyperlipidemia Qualified Code(s): E78.2 - Mixed hyperlipidemia Plan: LDL from December was 121. Since then patient has been on Mounjaro and lost about 30 lb. Requested to complete her lipid profile. Ideally, LDL goal less than 70. (5) DMII (diabetes mellitus, type 2): Code(s): E11.9 - Type 2 diabetes mellitus without complications Category: Medical Qualifiers: Diabetes mellitus snf insulin use: without intermodal owner operator truck driver use Diabetes mellitus complication status: with hyperglycemia Qualified Code(s): E11.65 - Type 2 diabetes mellitus with hyperglycemia Plan: Most recent A1c at 7.6. Continue aggressive diabetes management with an A1c goal less than 7 %. (6) Class 3 obesity: Code(s): E66.813 - Obesity, class 3 Category: Medical Plan: Patient is on Mounjaro. Has lost over 30 lb. Is also working with weight management for bariatric program. Advised heart healthy diet, regular exercise, losing weight, medication adherence, avoiding caffeinated beverages or other stimulants, and aggressive management of vascular risk factors. Follow up in 1 year, sooner if needed. In the interim, patient will call the office with any concerns or change in symptoms. This note was generated using voice recognition software. While every effort has been made to ensure accuracy and proper quartz miner, there may be occasional errors that could affect the content or meaning of the described symptoms. Coding Level of Care Code Est Pt Level 4 (50405) Add On Problem Visit Only Diagnoses Paroxysmal atrial fibrillation I48.0 TIERRA (obstructive sleep apnea) G47.33 Primary hypertension I10 Hypertension type: primary hypertension Mixed hyperlipidemia E78.2 Hyperlipidemia type: mixed hyperlipidemia Type 2 diabetes mellitus with hyperglycemia, without long-term current use of insulin E11.65 Diabetes mellitus intermodal owner operator truck driver insulin use: without intermodal owner operator truck driver use Diabetes mellitus complication status: with hyperglycemia Class 3 obesity E66.813 Time Spent (min) 31 Comment Time spent in reviewing the chart, test results, assessment, counseling and documentation.
[2025-02-23 13:49] VITALS: BP 124/62; PULSE 99; BMI 55.8
--- OUTSIDE RECORDS SUMMARY | 2025-02-23 17:55 | XMS_ITS | Encounter Summary ---
Author Organization [facility] Address [address] [facility] [address] [place] [address] Phone Care Team Providers Care Flight Control Manager Name Role Phone Markus Murphy MD Primary Care Provider + Encounter Details Date Type Department Care Team (Late st Contact Info) Description 08/01/2020 Ancillary Orders [facility],Outside Imaging [address] [place] [address] System, Provider Not In, [facility] [address] [address] Social History Tobacco Use Types Packs/Day Years [...] on filedocumented in this encounter Care Teams Flight Control Manager Relationship Specialty Start Date End Date Markus Murphy MD [address] [place] [phone] PCP - General Family Medicine 08/01/20 documented as of this encounter Additional Source Comments The information contained in this document represents components of the legal health record. It is not the complete legal health record.[facility]
--- OUTSIDE RECORDS SUMMARY | 2025-02-23 17:55 | XMS_ITS | Encounter Summary ---
Author Organization [facility] Address [address] [email or web address] [address] [place] [address] Phone Care Team Providers Care Towel Sewer Name Role Phone Markus Murphy MD Primary Care Provider + Encounter Details Date Type Department Care Team (Late st Contact Info) Description 12/21/2020 Procedure Pass OR Admitting Dept - Virtual Department [address] [place] [address] Social History Tobacco Use Types Packs/Day Years [...] on filedocumented in this encounter Care Teams Towel Sewer Relationship Specialty Start Date End Date Markus Murphy MD [address] [place] [phone] PCP - General Family Medicine 08/01/20 documented as of this encounter Additional Source Comments The information contained in this document represents components of the legal health record. It is not the complete legal health record.[facility]
--- OUTSIDE RECORDS SUMMARY | 2025-02-23 17:56 | XMS_ITS | Encounter Summary ---
Author Organization [facility] Address [address] [place] [address] Phone Care Team Providers Care Metal Building Assembler Name Role Phone Markus Murphy MD Primary Care Provider + Encounter Details Date Type Department Care Team (Late st Contact Info) Description 08/01/2020 Procedure Pass [address] [place] [address] Social History Tobacco Use Types Packs/Day Years [...] on filedocumented in this encounter Care Teams Metal Building Assembler Relationship Specialty Start Date End Date Markus Murphy MD [address] [place] [phone] PCP - General Family Medicine 08/01/20 documented as of this encounter Additional Source Comments The information contained in this document represents components of the legal health record. It is not the complete legal health record.[facility]
--- OUTSIDE RECORDS SUMMARY | 2025-02-23 17:56 | XMS_ITS | Clinical Summary ---
Author Organization [facility] Address [address] [facility] [address] [place] [address] Phone Care Team Providers Care Production Recovery Operator Name Role Phone Markus Murphy MD [...] on file Insurance WORKERS COMPENSATION Care Teams Production Recovery Operator Relationship Specialty Start Date End Date Markus Murphy MD [address] [place] [phone] PCP - General Family Medicine 08/01/20 Additional Source Comments The information contained in this document represents components of the legal health record. It is not the complete legal health record.[facility]
--- OUTSIDE RECORDS SUMMARY | 2025-02-23 17:56 | XMS_ITS | Encounter Summary ---
Author Organization [facility] Address [address] [place] [phone] Phone Care Team Providers Care Community Service Coordinator Name Role Phone Markus Murphy MD Primary Care Provider + Encounter Details Date Type Department Care Team (Late st Contact Info) Description 08/01/2020 Ancillary Orders [facility],Outside Imaging [address] [place] [address] System, Provider Not In, [facility] [address] [id number] Social History Tobacco Use Types Packs/Day Years [...] on filedocumented in this encounter Care Teams Community Service Coordinator Relationship Specialty Start Date End Date Markus Murphy MD [address] [place] [id number] PCP - General Family Medicine 08/01/20 documented as of this encounter Additional Source Comments The information contained in this document represents components of the legal health record. It is not the complete legal health record.[facility]
== END 2025-02-23 14:16 | disposition home or self-care (01) ==
LOC: HO.HCS 13:44
PROVIDERS: PCP Physician Assistant
DX: I48.0 Paroxysmal atrial fibrillation (principal); G47.33 Obstructive sleep apnea (adult) (pediatric); I10 Essential (primary) hypertension; E78.2 Mixed hyperlipidemia; E11.65 Type 2 diabetes mellitus with hyperglycemia; E66.813 Obesity, class 3
CPT/HCPCS: 99214